=== PATIENT | female | born 1950 | race Caucasian/White ===

== ENCOUNTER 2016-12-24 00:11 | Inpatient (IN) | payer OTHER ==
[~2016-12-24] VITALS: Ht 167.6 cm; Wt 59.4 kg
[2016-12-24] VITALS (17 sets, daily range): BP systolic 62–151; BP diastolic 40–79; PULSE 62–119; RESP 13–28; O2SAT 76–100
[~2016-12-24 00:11] MED LIST: ALBU8.5H2 INHALATION; AZIT250T4 PO; CYCL1DRO AFFECT_EYE; EPIN0.3P17 IJ; FURO40TA4 PO; IPRA3AMP IH; LOSA50TA37 PO; POTA10TA12 PO; SYMINH INHALATION
[2016-12-24] MEDS ORDERED: Propofol 10,000 mCg/mL 20 mL Inj ONE (07:33)
[2016-12-24] MEDS ORDERED: Phenylephrine/NS-PF 100 mCg/mL 5 mL Syringe IVPUSH ONE (07:33)
[2016-12-24] MEDS ORDERED: EPHEDrine/NS 5 mg/mL 5 mL Syringe ONE (07:33)
[2016-12-24 08:35] LABS: BASOPHILS % (AUTO) 0.3 % (0-3); EOSINOPHILS % (AUTO) 0.7 % (0-5); MONOCYTES % (AUTO) 12.4 % (4-12); Mean Corpuscular Hemoglobin 28.6 pg (27.0-35.0); Mean Corpuscular Volume 93.9 fL (81-100); NEUTROPHILS % (AUTO) 71.9 % (40-74); Platelet Count 210 bil/L (150-400)
[2016-12-24 08:53] LABS: INR 1.01 ratio
--- NOTE | 2016-12-24 09:00 | NUR ---
SOB/ oxygen desaturation Pt sats 76 on RA, 92 on 4L, pt states that she doesn't use home O2, she is slightly tachypneic but not feelin in distress, pt doesn't tolerate any position other than sitting upright. MD informed, anesthesia consult ordered. pt extremely anxious and requesting something to calm her down. MD informed, orders given for 1 mg of Ativan. after medication was given pt became sleepy but arousable, sats 94 on 4L o2.
[2016-12-24] MEDS ORDERED: Heparin 5,000 Units/500 mL NS Premix IV ONE ×3 (09:27→11:48)
[2016-12-24] MEDS ORDERED: Nitroglycerin 50,000 mcg/250 mL D5W Premix IV ONE (09:27)
[2016-12-24] MEDS ORDERED: Heparin 1,000 Units/500 mL NS Premix IV ONE (09:27)
[2016-12-24] MEDS ORDERED: Heparin 1,000 Unit/mL 10 mL Inj ONE (09:27)
--- NOTE | 2016-12-24 10:08 | PCM.HPANE ---
Patient Data Date of Service: Dec 24, 2016 Surgeon Admitting Provider: Attending Provider:Jarod Wilson MD Primary Care Physician:Rocky Li DO Other Provider: Reason for Visit Abnormal Stress Test Ht/WT & BMI Height (Feet): 5 Height (Inches): 6.00 Weight (Kilograms): 67.000 Body Mass Index 23.74 Allergies Coded Allergies: lisinopril (Unverified Allergy, Unknown, 12/24/16) dexamethasone (Unverified Adverse Reaction, Unknown, 12/24/16) Past Anesthesia History Anesthesia History: Denies:: Anesthesia Reactions Diabetes History Hx Diabetes?: No MRSA MRSA: No Medications Home Meds Incl Beta Jeffery: No Reported Medications Budesonide/Formoterol 160-4.5 mcg Inh (Symbicort 160-4.5 mcg Inh)120 Puff Inhaler2 Puff INHALATION BID #1 INHALER Ref 0 12/23/16 Cyclosporine (Restasis)1 Each Droperette1 Each AFFECT_EYE BID 12/23/16 Albuterol HFA (Proair HFA)8.5 Gm Hfa.aer.ad2 Puffs INHALATION Q4H PRN For Shortness of Breath #1 INHALER 12/23/16 Potassium Chloride ER 10 Meq Adfpph08 Meq PO DAILY Ref 0 TAKE WITH FOOD 12/23/16 Losartan Potassium 50 Mg Jyftpa15 Mg PO DAILY 12/23/16 Ipratropium/Albuterol Sulfate (Iprat-Albut 0.5-3(2.5) mg/3 mL Inhalant Soln)3 Ml Ampul.neb3 Ml IH Q6 PRN For Shortness of Breath Ref 0 12/23/16 Furosemide 40 Mg [id number] Mg PO DAILY 12/23/16 Epinephrine 0.3 Mg/0.3 Ml Auto.injct0.3 Mg IJ ONCE PRN For Anaphyllaxis 12/23/16 Azithromycin (Zithromax (Z-Howard))250 Mg [id number] Mg PO DIRECTED #6 TABLET Ref 0 Take two tablets by mouth on day 1, then take one tablet daily on days 2 through 5. 12/23/16 History History of ENT Problems?: Yes Other HEENT Pertinent History: post laser surgery Hx of Heart Problems?: Yes Cardiovascular History: Positive for:: Chest Pain (currently having episodes) Hypertension Denies:: Cardiac Surgery Congestive Heart Failure Edema Heart Murmur Irregular Heartbeat Peripheral Vascular Hx of Respiratory Problem?: Yes Respiratory History: Positive for:: Asthma (copd) Dyspnea (constant) Denies:: Chest Surgery Pneumonia Tuberculosis Other History/Comment O2 sats low on admission - patient reports that sats at home in the 80s. Hx Neurologic Problems?: No Hx of GI Problems?: No Hx of Psycho/Social Problems?: Yes Psycho Social History: Positive for:: Anxiety (situational) Denies:: Hx Depression Hx Surgeries?: Yes (, hysterectomy) Hx Any Other Health Problems?: No Other History: Denies:: Cancer Hospitalization Thyroid Disease History Blood Transfusions: Positive for:: Accept Blood Products? Denies:: Blood Transfuse Reaction Blood Transfusions Hx Diabetes: No Hx Alcohol Use: Yes (2 drinks a day)Hx Substance Use: NoHave You Smoked inLast 12 mo: No Stop/Bang Risk Assessment Category Category 1A: Patient has history of documented sleep apnea, and HAS NOT received any narcotic, sedative or anesthesia administration during this stay. Category 1B: Patient has history of documented sleep apnea, and HAS received any narcotic , sedative or anesthesia administration during this stay Category 2: Patient has SUSPECTED Obstructive Sleep Apnea, and HAS received any narcotic , sedative or anesthesia administration during this stay. Category 3: Patient has SUSPECTED Obstructive Sleep Apnea and HAS NOT received narcotic, sedative or anesthesia administration during this stay. Category 4: Outpatient in Procedural Areas with known sleep apnea or who screen positive for High Risk via the STOP/BANG questionnaire. Exam Exam Vital Signs Vital Signs Date Time Temp Pulse Resp B/P Pulse Ox O2 Delivery O2 Flow Rate FiO2 12/24/16 08:51 119 151/79 12/24/16 08:51 36.9 117 28 151/79 94 Room Air General Appearance: Mild Distress, Other (patient already received ativan - very sedated) HEENT/AIRWAY: MP 2 Lungs: Diminished, Wheezes (mild expiratory) Heart: Exam Unremarkable Meds/Labs/Diagnostics Admission Meds Current Medications Lorazepam (Ativan Inj) 2 mg STK-MED ONCE .ROUTE Last administered on 12/24/16t 08:49; Start 12/24/16 at 08:27; Stop 12/24/16 at 08:29; Status DC Labs Test 12/24/16 08:29 White Blood Count 7.2th/mm3 (3.8-10.1) Red Blood Count 5.74mil/mm3 (3.90-5.20) Hemoglobin 16.4g/dL (12.0-15.6) Hematocrit 53.9% (35.0-46.0) Mean Corpuscular Volume 93.9fL (81-100) Mean Corpuscular Hemoglobin 28.6pg (27.0-35.0) Mean Corpuscular Hemoglobin Concent 30.4% (32.0-37.0) Red Cell Distribution Width 14.9% (12.3-15.4) Platelet Count 210bil/L (150-400) Neutrophils (%) (Auto) 71.9% (40-74) Lymphocytes (%) (Auto) 14.6% (14-46) Monocytes (%) (Auto) 12.4% (4-12) Eosinophils (%) (Auto) 0.7% (0-5) Basophils (%) (Auto) 0.3% (0-3) Prothrombin Time 10.8sec (8.1-12.5) Prothromb Time International Ratio 1.01ratio Sodium Level 143mEq/L (134-144) Potassium Level 4.2mEq/L (3.5-5.2) Chloride Level 97mEq/L (97-108) Carbon Dioxide Level 37mmol/L (18-29) Blood Urea Nitrogen 14mg/dL (8-27) Creatinine 0.60mg/dL (0.57-1.00) Estimat Glomerular Filtration Rate 144mL/min (>59) Glucose Level 129mg/dL (60-99) Calcium Level 10.0mg/dL (8.5-10.1) Plan Impression Patient chart reviewed, patient interviewed and anesthestic plan with risks, benefits, and alternatives discussed, and informed consent obtained. ASA Physical Status: ASA3 Severe Disease (asthma/copd) Anesthetic Plan: MAC Bene/Risks/Altern/Consents: Yes (discussed with family as patient very sedated) HP Complete Prior to Induction: Yes Other sats 95% on 4L O2, getting CXR to r/o acute process. discussed with family and Dr. Wilson that discharge today may be difficult if room air sats still low. Bertin Shi MD Dec 24, 2016 10:06
--- NOTE | 2016-12-24 10:13 | DRSVH ---
PROCEDURE: X-RAY CHEST ONE VIEW, PORTABLE ([id number]) INDICATIONS: SHORTNESS OF BREATH TECHNIQUE: One view of the chest was acquired. COMPARISON: [facility], CR, XR CHEST 2VW, 11/26/2016, 11:43. FINDINGS: Surgical changes and devices: None. Lungs and pleura: No pleural effusions or pneumothorax. Lungs are clear. Mediastinum: Mediastinal contours appear normal. Heart size is normal. Bones and chest wall: No suspicious bony lesions. Overlying soft tissues appear unremarkable. IMPRESSION: No acute disease Dictated by: Alli Mercado M.D. on 12/24/2016 at 10:11 Approved by: Alli Mercado M.D. on 12/24/2016 at 10:12
[2016-12-24] MEDS ORDERED: Lactated Ringer's 1,000 ML IV ONE (10:22)
[2016-12-24] MEDS ORDERED: Labetalol 5 mg/mL 20 mL Inj ONE (10:52)
[2016-12-24] MEDS ORDERED: Ondansetron 2 mg/mL 2 mL Inj IVPUSH PRN ×3 (12:55→13:10)
[2016-12-24] MEDS ORDERED: Alum-Mag Hydrox-Simeth 30 mL Suspension PO PRN (12:55)
[2016-12-24] MEDS ORDERED: 0.9% Sodium Chloride 250 ML IV PRN (12:58)
[2016-12-24] MEDS ORDERED: HYDROcodone-APAP 5-325 mg Tablet PO PRN (13:00)
[2016-12-24] MEDS ORDERED: Atropine 1 mg/10 mL (Code) Syringe IVPUSH PRN (13:00)
[2016-12-24] MEDS ORDERED: Albuterol-Ipratropium 3 mL Inhalation Solution ONE (13:05)
[2016-12-24] MEDS ORDERED: Lactated Ringer's 1,000 ML IV SCH (13:08)
[2016-12-24] MEDS ORDERED: Lactated Ringer's 500 ML IV PRN (13:08)
[2016-12-24] MEDS ORDERED: fentaNYL-PF 50 mCg/mL 2 mL Inj IVPUSH PRN (13:10)
[2016-12-24] MEDS ORDERED: Dexamethasone 4 mg/mL Inj IVPUSH PRN (13:10)
[2016-12-24] MEDS ORDERED: EPHEDrine Sulfate 50 mg/mL Inj IVPUSH PRN (13:10)
[2016-12-24] MEDS ORDERED: HYDROmorphone 1 mg/mL Inj IVPUSH PRN (13:10)
[2016-12-24] MEDS ORDERED: Phenylephrine 10,000 mCg/mL Inj IVPUSH PRN (13:10)
[2016-12-24] MEDS ORDERED: Albuterol-Ipratropium 3 mL Inhalation Solution NEB PRN ×2 (13:10→17:25)
[2016-12-24] MEDS ORDERED: MetoCLOpramide 5 mg/mL 2 mL Inj IVPUSH PRN (13:10)
--- NOTE | 2016-12-24 13:22 | PCM.ANEP1 ---
Post Anesthesia Phase 1 PACU Phase 1 Assessment Date of Service: Dec 24, 2016 Vital Signs Vital Signs Date Time Temp Pulse Resp B/P Pulse Ox O2 Delivery O2 Flow Rate FiO2 12/24/16 08:51 119 151/79 12/24/16 08:51 36.9 117 28 151/79 94 Nasal Cannula 4.00 12/24/16 08:00 76 Room Air Anesthetic Administered: GA Level of Alertness: Drowsy, not talking Pain: No Nausea or Vomiting: No Oxygen Delivery: Mechanical Ventilator Lungs: Diminished, Wheezes (mild expiratory) Summary remains intubated, sedated on vent in JIGAR (awaiting bed in ICU) Bertin Shi MD Dec 24, 2016 13:22
[2016-12-24 13:43] LABS: BASOPHILS % (AUTO) 0.2 % (0-3); EOSINOPHILS % (AUTO) 0.6 % (0-5); MONOCYTES % (AUTO) 10.5 % (4-12); Mean Corpuscular Hemoglobin 28.6 pg (27.0-35.0); Mean Corpuscular Volume 97.2 fL (81-100); NEUTROPHILS % (AUTO) 78.5 % (40-74); Platelet Count 194 bil/L (150-400)
[2016-12-24] MEDS: Propofol Inj 1,000,000 MCG in IV Premix 1 EACH IV SCH ×3 (13:56→22:13)
[2016-12-24] MEDS ORDERED: DOPamine 800 mg/250 mL D5W Premix IV ONE (14:02)
--- NOTE | 2016-12-24 14:13 | DRSVH ---
PROCEDURE: X-RAY CHEST ONE VIEW, PORTABLE ([id number]) INDICATIONS: TUBE PLACEMENT TECHNIQUE: One view of the chest was acquired. COMPARISON: [facility], CR, XR CHEST 1VW (PORTABLE), 12/24/2016, 9:44. FINDINGS: Surgical changes and devices: Endotracheal tube is present approximately 3.2 cm superior to the bev na. Lungs and pleura: No pleural effusions or pneumothorax. Lungs are clear. Mediastinum: Mediastinal contours appear normal. Heart size is normal. Bones and chest wall: No suspicious bony lesions. Overlying soft tissues appear unremarkable. IMPRESSION: Interval endotracheal tube as above. Remaining exam is stable. Dictated by: Maria Ines Smith M.D. on 12/24/2016 at 14:10 Approved by: Maria Ines Smith M.D. on 12/24/2016 at 14:11
--- NOTE | 2016-12-24 15:30 | NUR ---
transfer to rm 2019 pt transferred to CCU, report given to Nataliia Adler RN. RT at bedside with bag valve or transport, pt tolerated transfer well, when vitals taken at bedside pt VSS and within expected parameters on the ventilator. pt family made aware of transfer, they had her personal belongings with them when they left.
--- NOTE | 2016-12-24 16:01 | ABG ---
DateTimeAnalyzed 15:55:00 -_ pH ____7.499 - 7.350 7.450 pCO2 ___39.4__ -mmHg 35.0 45.0 pO2 249 -mmHg 69.0 116 HCO3- ___30.4__ -mmol/L 22.0 26.0 ABE ____7.0__ -mmol/L -2.0 2.0 tHb ___14.9__ -g/dL O2Hb ___97.8__ -% COHb ____1.0__ -% MetHb ____0.9__ -% sO2 ___99.7__ -% FIO2 ___40.0__ -% PEEP ____5.0__ -cmH2O Set_RR ___18.0__ -b/min Vt __460.0__ -L Drawn By as - Date/Time Notified____ 16:00:00 -_ Spontaneous_RR ___18.0__ -b/min Oxygen Device 1 VENTILATOR - Notified By AMS - Notified Whom ROSEMARY COOK, RN - B 747 -mmHg tO2 ___21.0__ -Vol% Thad test N/A -
--- NOTE | 2016-12-24 16:02 | NUR ---
Recieved from labor relations officer Pt intubated, sedated, hypotensive, MD and anesthesiologist at bedside, orders given for fluid bolus, and initiation of propofol gtt. see post heart cath flow sheet for groin management and Vital signs, family updated on plan of care.
--- NOTE | 2016-12-24 16:11 | DRSVH ---
[facility] [address] [place] [address] Echocardiogram Report Name: MARYJANE WEBER Study Date: 12/24/2016 Height: 66 in Hospital Exam Location: [facility] Weight: 147 lb Gender: Other BSA: 1.8 m2 : 1950 Age: 66 yrs BP: 91/65 mmHg Reason For Study: POST PROCEDURE Ordering Physician: Performed By: Vinicio Reeder Interpretation Summary Limited study due to supine position during image acquisition. 1.The estimated ejeciton fraction is 35-40%. Multisegment wall motion abnormalities are seen. Elevated E/e suggest elevated left atrial filling pressures. 2. Mild to moderately reduced systolic function. 3. Mild mitral regurgitation. 4. IVC is not plethoric. 5. No prior study is available for comparison. Procedure: A two-dimensional transthoracic echocardiogram with color flow and Doppler was performed. The study quality was technically adequate. There is no prior echocardiogram noted for this patient. The patient was in normal sinus rhythm during the exam. Left Ventricle: The left ventricle is normal in size. Left ventricular wall thickness is mildly increased. There is no thrombus. The ejection fraction is estimated to be 35-40%. There is anterior wall mild hypokinesis. Threre is moderate hypokinesis of basal to mid inferoseptum and basal to mid inferior wall. The E/E' ratio is moderately increased, suggesting possible increased filling pressures. Right Ventricle: The right ventricle is borderline dilated. Right ventricular systolic function is mild to moderately reduced. Mitral Valve: The mitral valve leaflets appear borderline thickened, but open well. There is mild mitral regurgitation. Aortic Valve: The aortic valve is not well visualized. No aortic regurgitation is present. Tricuspid Valve: The tricuspid valve is not well visualized, but is grossly normal. Pulmonary artery pressures cannot be estimated because of the lack of a measurable TR jet velocity. Pulmonic Valve: The pulmonic valve is not well visualized. Great Vessels: Inspiratory collapse cannot be assessed because of mechanical ventilation, thus CVP cannot be estimated.. Pericardium/ Pleura There is no pericardial effusion. There is no pleural effusion. MMode/2D Measurements & Calculations RVD1 (basal): 4.9 cm Doppler Measurements & Calculations Ao V2 max MV E max jacob MV E/A: 1.4 PA V2 max : 104.1 cm/sec : 68.0 cm/sec Med Peak E' Jacob : 48.3 cm/sec Ao max P.3 mmHgMV A max jacob PA mean PG Ao mean PG : 48.9 cm/sec E/E' med: 20.2 : 0.46 mmHg LVOT Max Jacob : 72.5 cm/sec sev ratio: 0.73 MV dec time Ao V2 mean LV V1 max PG PA V2 mean : 0.27 sec : 74.8 cm/sec : 32.1 cm/sec Ao V2 VTI: 17.0 cm LV V1 VTI: 12.5 cm PA pr(Accel) : 31.6 mmHg Electronically signed by: Dr. Jarod Wilson on Reading Physician:12/24/2016 04:10 PM
--- NOTE | 2016-12-24 16:45 | HP ---
[address] [address] HISTORY AND PHYSICAL PATIENT: MARYJANE WEBER : 1950 MR#: [id number] ADMIT: 12/24/2016 JOB ID: [id number] REASON FOR ADMISSION TO CCU: Respiratory failure. HISTORY OF PRESENTING ILLNESS: The patient is a delightful 66-year-old woman with known history of chronic obstructive pulmonary disease, history of smoking, COPD, and hypertension, who was referred to me for evaluation of abnormal EKG and ongoing symptoms of shortness of breath and intermittent chest heaviness and pain. She was seen in the office and underwent pharmacological stress testing and an echocardiogram. The echocardiogram revealed overall systolic function of 40% to 45% with severe hypokinesis of the inferior wall and mild hypokinesis of the anteroseptal and anterior basal segments. No significant valvular abnormalities were noted. The stress test revealed reversible perfusion defect involving the anteroseptal/septal wall completely reversible on resting images. The post stress ejection fraction was 33%. The inferior wall demonstrated fixed perfusion defect consistent with previous infarction. Given presence of ischemia, the patient was advised coronary angiography. The patient was seen in the special observation unit, consent was obtained, and the patient was taken to the laboratory mechanical technician. Coronary angiography was performed which demonstrated 70% complex lesion of the proximal LAD with the side first diagonal branch. The diagonal branch has high-grade ostial stenosis. The mid and distal LAD demonstrates luminal irregularities. The left circumflex is free of any significant disease. The right coronary artery has two lesions in the mid RCA and distal RCA and the posterior descending artery was not well visualized. There were mature avun-yv-uhago collaterals noted. The LV-gram was performed which demonstrated posterobasal akinesis and the anteroseptal wall demonstrated mild hypokinesis. I referred the patient to Dr. Rl Torres, who graciously agreed to do intervention to the LAD. As he started the intervention, the patient became obtunded and hypotensive. Her pCO2 was 150. She was managed by Dr. Shi, who was managing her airway and her sedation. The angioplasty was aborted. The patient became hypotensive and the patient was intubated in the laboratory mechanical technician. The arterial sheath was removed and a Perclose closure device was placed. The patient was brought to the special observation unit for further management. The patient was placed on the ventilator. Two IV lines were established. Easton catheter was inserted. IV propofol was administered. The patient remained hemodynamically unstable and with low blood pressures. Two fluid boluses were given and an IV dopamine drip was started. From a diagnostic standpoint, the chest x-ray demonstrated mildly hyperinflated lungs with prominent interstitial markings. There is prominent pulmonary artery. The LV size was normal. There was no evidence of pneumothorax. Stat echo was performed which demonstrated akinesis of the inferior wall. The anteroseptal and mid anteroseptal segment was moderately to severely hypokinetic. Routine labs were ordered and the results are pending. I had a long conversation with the family members, who were supportive, and I kept them apprised of her clinical status. In the meanwhile I spoke to Dr. Bertin Delgado for taking over her care as the hospitalist. ALLERGIES: INCLUDE LISINOPRIL AND DEXAMETHASONE. CURRENT MEDICATIONS: Include: 1. Vitamin D3 2000 units daily. 2. Venlafaxine 75 mg daily. 3. Symbicort inhaler twice daily. 4. Restasis eyedrops daily. 5. ProAir inhaler two puffs every 4-6 hours daily. 6. Potassium chloride ER 10 mEq daily. 7. Losartan 50 mg daily. 8. Furosemide 40 mg daily. PAST MEDICAL HISTORY: Her problem list includes COPD, history of smoking, history of occupational exposure. PHYSICAL EXAMINATION: Blood pressure is 117/69, FiO2 of 30%, saturating at 95%. She is sedated, intubated. S1, S2 is distant the chest demonstrates diminished breath sounds in both lower bases. Abdomen is benign. Lower extremities: No pedal edema. The groin site is free of any hematoma. LABORATORY DATA: The current ABGs pending. Echo: EF 35-40%. Alexander-septal wall hypokinesis, Inferior wall hypokinesis. Evidence of elevated filling pressures. Chest X ray shows prominent interstitial marking. Prominent pulmonary artery. ASSESSMENT: 1. Type 2 respiratory failure with hypercapnia. 2. Coronary artery disease with a high-grade stenosis to the proximal LAD and high-grade stenosis to the mid and distal RCA. 3. Ischemic cardiomyopathy with ejection fraction of 40%. Multisegment wall motion abnormalities noted. 4. COPD. The patient has a longstanding history of smoking an is on bronchodilators. PLAN: 1. Admit to the CCU for hemodynamic stability. 2. Current IV drips: Propofol, dopamine, IV fluids at 100 cc an hour. 3. Heparin subcu for VTE prophylaxis. 4. IJ-line to be placed by anesthesia. 5. Strict input and output charting. 6. Hemodynamic measurements per CCU protocol. 7. I will be following closely monitoring her. Total ICU critical time is 2 hours and 30 minutes. MTDD
--- NOTE | 2016-12-24 16:58 | DRSVH ---
PROCEDURE: X-RAY CHEST ONE VIEW, PORTABLE ([id number]) INDICATIONS: CENTRAL LINE PLACEMENT ET TUBE NG TUBE TECHNIQUE: One view of the chest was acquired. COMPARISON: [facility], CR, XR CHEST 1VW (PORTABLE), 12/24/2016, 13:32. FINDINGS: Surgical changes and devices: Enteric tube is seen with the tip not included on the study however bey ond the gastroesophageal junction. Endotracheal tube is seen with the tip approximately 2 x 3 cm abov e the aftab. There is a right internal jugular central venous catheter with the tip projecting in th e mid SVC although not well-seen due to overlying EKG lead Lungs and pleura: No pleural effusions or pneumothorax. No acute consolidation. Mediastinum: Mediastinal contours appear normal. Heart size is normal. Bones and chest wall: No suspicious bony lesions. Overlying soft tissues appear unremarkable. IMPRESSION: No acute disease. Support equipment as above. No pneumothorax. Dictated by: Alli Mercado M.D. on 12/24/2016 at 16:55 Approved by: Alli Mercado M.D. on 12/24/2016 at 16:57
--- NOTE | 2016-12-24 17:28 | PCM.HPMED ---
Subjective Date of Service Dec 24, 2016 Primary Provider: Admitting Physician: Bertin Delgado MD Primary Care Physician: Rocky Li DO Attending Physician: Bertin Delgado MD Chief Complaint: Acute Respiratory failure. 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 Patient was referred to Dr. Jarod Wilson for cardiology evaluation. Patient underwent a outpatient stress test which was suggestive of ischemic cardiac disease. Patient was therefore brought in today for an elective cardiac catheterization. Patient was extremely anxious and was given some Ativan. She became quite somnolent and soon thereafter became easily arousable. Patient underwent coronary artery catheterization was found to have 2 lesions in tandem in her right coronary artery and an approximately 90 % proximal LAD lesion. Dr. Torres was contacted to assist with intervention for these lesions. Anesthesia was present to help with the procedure due to patient's anxiety level and need for some sedation. She apparently was given some propofol. By the time Dr. Torres had scrubbed in and was available to help with the procedure the patient apparently was once again less responsive. A blood gas revealed a CO2 that was over 150. Patient was promptly intubated and placed on the ventilator. The percutaneous intervention for the LAD lesion in the tandem RCA lesions was aborted. Patient was transferred over to the intensive care unit for further evaluation and treatment. Review of Systems: Review of systems is unavailable from the patient is a patient is intubated. Allergies Coded Allergies: lisinopril (Unverified Allergy, Unknown, 12/24/16) dexamethasone (Unverified Adverse Reaction, Unknown, 12/24/16) Home Medications Budesonide/Formoterol 160-4.5 mcg Inh (Symbicort 160-4.5 mcg Inh)120 Puff Inhaler2 Puff INHALATION BID #1 INHALER Ref 0 12/23/16 Cyclosporine (Restasis)1 Each Droperette1 Each AFFECT_EYE BID 12/23/16 Albuterol HFA (Proair HFA)8.5 Gm Hfa.aer.ad2 Puffs INHALATION Q4H PRN For Shortness of Breath #1 INHALER 12/23/16 Potassium Chloride ER 10 Meq Tdwode27 Meq PO DAILY Ref 0 TAKE WITH FOOD 2/16/17 Losartan Potassium 50 Mg Eoixlh02 Mg PO DAILY 12/23/16 Ipratropium/Albuterol Sulfate (Iprat-Albut 0.5-3(2.5) mg/3 mL Inhalant Soln)3 Ml Ampul.neb3 Ml IH Q6 PRN For Shortness of Breath Ref 0 12/23/16 Furosemide 40 Mg Kchztq56 Mg PO DAILY 12/23/16 Epinephrine 0.3 Mg/0.3 Ml Auto.injct0.3 Mg IJ ONCE PRN For Anaphyllaxis 12/23/16 Azithromycin (Zithromax (Z-Howard))250 Mg Sbcmrd676 Mg PO DIRECTED #6 TABLET Ref 0 Take two tablets by mouth on day 1, then take one tablet daily on days 2 through 5. 12/23/16 PMH Patient has been having intermittent chest pain History of hypertension. History of anxiety History depression Surgical History Prior Prior hysterectomy Family History Family history is unavailable from the patient has no family present. Social History Occupation: Hairdresser Hx Alcohol Use: Yes (2 drinks a day) Hx Substance Use: No Hx Tobacco Use: Yes Smoking Status: Former Smoker (patient quit smoking 3 years ago.) Exam Vital Signs Vital Sign - Last Date Time Temp Pulse Resp B/P Pulse Ox O2 Delivery O2 Flow Rate FiO2 12/24/16 15:38 74 130/73 100 40 12/24/16 15:00 17 ventilator 12/24/16 08:51 36.9 4.00 Exam General: Patient is sedated on the ventilator. She is moving all 4 extremities and has soft restraints on her wrist and ankles. HEENT: Head is atraumatic and normocephalic. Eyes: Pupils are pinpoint, however equally round and reactive to light and accommodation. Extraocular muscles are unable to be tested. Sclera are white, anicteric. Subconjunctival mucosa is pink. Ears and nose are unremarkable. Oropharynx: Patient is intubated with an endotracheal tube in place. There is no mucosal lesions evident, there is no thrush evident, I am unable to see the posterior pharynx. Neck: Is supple, there are no nodes, or masses or tenderness. Chest: Is significant for coarse breath sounds on the ventilator. There are no significant rales, rhonchi, wheezes or rubs. Heart: Rate, rhythm is regular. Heart tones are distant There is obvious murmur , rub or gallop. Abdomen: Good bowel sounds are present. Abdomen is obese, soft, nontender, no organomegaly or masses were appreciated. Extremities: Are symmetrical and well perfused. There is no edema, there is no cellulitis, no rash. Neurologic: Patient is moving all 4 extremities. Patient has soft restraints on her wrists and ankles for her own protection. Full neurological exam could not be performed as patient is sedated on the ventilator.. Psychiatric: Patient is sedated on ventilator. Genital: Deferred Rectal: Deferred Lab and Diagnostics Result Diagram: 12/24/16 1335 12/24/16 1335 X-Rays, CTs and MRIs PROCEDURE: X-RAY CHEST ONE VIEW, PORTABLE ([id number]) INDICATIONS: TUBE PLACEMENT TECHNIQUE: One view of the chest was acquired. COMPARISON: [facility], CR, XR CHEST 1VW (PORTABLE), 12/24/2016, 9: 44. FINDINGS: Surgical changes and devices: Endotracheal tube is present approximately 3.2 cm superior to the aftab. Lungs and pleura: No pleural effusions or pneumothorax. Lungs are clear. Mediastinum: Mediastinal contours appear normal. Heart size is normal. Bones and chest wall: No suspicious bony lesions. Overlying soft tissues appear unremarkable. IMPRESSION: Interval endotracheal tube as above. Remaining exam is stable. Dictated by: Maria Ines Smith M.D. on 12/24/2016 at 14:10 Approved by: Maria Ines Smith M.D. on 12/24/2016 at 14:11 Cardiac Echo Impressions Echocardiogram Report Name: MARYJANE WEBER Study Date: 12/24/2016 Height: 66 in Hospital Exam Location: [facility] Weight: 147 lb Gender: Other BSA: 1.8 m2 : 1950 Age: 66 yrs BP: 91/65 mmHg Reason For Study: POST PROCEDURE Ordering Physician: Performed By: Vinicio Reeder Interpretation Summary Limited study due to supine position during image acquisition. 1.The estimated ejeciton fraction is 35-40%. Multisegment wall motion abnormalities are seen. Elevated E/e suggest elevated left atrial filling pressures. 2. Mild to moderately reduced systolic function. 3. Mild mitral regurgitation. 4. IVC is not plethoric. 5. No prior study is available for comparison. 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 Patient was referred to Dr. Jarod Wilson for cardiology evaluation. Patient underwent a outpatient stress test which was suggestive of ischemic cardiac disease. Patient was therefore brought in today for an elective cardiac catheterization. Patient was extremely anxious and was given some Ativan. She became quite somnolent and soon thereafter became easily arousable. Patient underwent coronary artery catheterization was found to have 2 lesions in tandem in her right coronary artery and an approximately 90 % proximal LAD lesion. Dr. Torres was contacted to assist with intervention for these lesions. Anesthesia was present to help with the procedure due to patient's anxiety level and need for some sedation. She apparently was given some propofol. By the time Dr. Torres had scrubbed in and was available to help with the procedure the patient apparently was once again less responsive. A blood gas revealed a CO2 that was over 150. Patient was promptly intubated and placed on the ventilator. The percutaneous intervention for the LAD lesion in the tandem RCA lesions was aborted. Patient was transferred over to the intensive care unit for further evaluation and treatment. Acute on chronic respiratory failure -Profound hypercarbia -Patient became obtunded -Patient intubated and on the ventilator -Patient apparently has a history of being hypoxic at home and did not seek medical attention. -Patient has a history of chemical exposure as a hairdresser for years -Patient has a history of tobacco use disorder. She quit 3 years ago. Patient likely suffers from undiagnosed COPD. -Patient has a history of asthma -Patient has an anxiety disorder -We will consult Dr. Grey for pulmonary consultation and for ventilator management. Ischemic cardiomyopathy with acute on chronic systolic congestive heart failure. -She has a proximal LAD lesion of 90% and 2 in tandem RCA lesions. These were seen on cardiac catheterization today. -Patient will need intervention for these lesions as soon as she is stable enough for taking her back to the cardiac catheterization laboratory. -Patient a positive stress test as an outpatient -Patient's ejection fraction is 35-40% and echocardiogram performed today. -We will continue Lasix and IV form as he normally takes Lasix 40 mg by mouth daily at home -Other cardiac meds as per Dr. Wilson History of anxiety and depression -Patient became hypercarbic with Ativan therapy today. History of hypertension -Patient takes losartan 50 mg daily and furosemide 40 mg daily. Disposition: Patient will likely be here for 72 hours or more for the evaluation and treatment and management of above problems. Pain Evaluation: Adequate Pain Control GI Prophylaxis: H2 vinay VTE Prophylaxis: Other (patient has received numerous doses of heparin IV) Resuscitation Status: CPR: Attempt Resuscitation Time spent Time taken in the care of this chronically ill patient was over 60 minutes, over half of which was involved in counseling and [place] of care. Bertin Delgado MD Dec 24, 2016 17:28
[2016-12-24] MEDS: fentaNYL 2,500 mCg/250 mL 2,500 MCG in IV Premix 1 EACH IV SCH (17:44)
[2016-12-24] MEDS: Albuterol-Ipratropium 3 mL Inhalation Solution NEB SCH ×2 (18:03→21:21)
--- NOTE | 2016-12-24 18:36 | PCM.CHPMED ---
Subjective Date of Service: Dec 24, 2016 Primary Physician: Admitting Physician: Bertin Delgado MD Primary Care Physician: Rocky Li DO Attending Physician: Bertin Delgado MD Admit Status: From the Emergency Department Chief Complaint: Chief Complaint: Hypercarbic respiratory failure History of Present Illness: A 66-year-old woman with reported history of COPD, history of smoking, and hypertension was evaluated by Dr. Wilson due to an abnormal EKG with failed pharmacologic stress test. Patient present to the [facility] today for cardiac catheterization evaluation. The catheterization there are noted high-grade stenoses in the LAD and RCA. Please see Dr. Wilson's note for specifics. After discovery of the lesions Dr. Torres was consulted and after discussion with Dr. Torres agreed to do intervention on the LAD. After initiation of the intervention with anticipated stent placement, the patient became obtunded and hypotensive with a PCO2 of 150. The angioplasty was aborted at that time and the patient intubated. Patient was also placed on dopamine, 2 IV lines were established, [place], and IV propofol was started. Patient was admitted to the ICU a pulmonary was consulted for vent management. ABG obtained in the [place] [employer] Technician is unavailable at the time of this dictation. First first ABG on the floor revealed a pH of 7.499, PCO2 of 39.4, PO2 of 249, bicarbonate of 30.4, with a saturation of 99.7% White count was 10.1, hemoglobin 14.2, hematocrit 40.3, platelets 194 Patient was mildly hypernatriuretic and hyperkalemic at 147 and 5.3, respectively. Bicarbonate was initially 37 with repeat being 33. Chest x-ray was read by radiology and they identified no acute disease Review of Systems: Complete review of systems taken from previous notes, as patient is intubated. PMH Past Medical History COPD/asthma Hypertension Allergies: Coded Allergies: lisinopril (Verified Allergy, Unknown, cough, 01/06/17) dexamethasone (Verified Adverse Reaction, Unknown, 01/06/17) Social History Occupation: Hairdresser Hx Alcohol Use: Yes (2 drinks a day)Hx Substance Use: NoHx Tobacco Use: Yes Smoking Status: Former Smoker (patient quit smoking 3 years ago.) Exam Vital Signs Vital Sign - Last Date Time Temp Pulse Resp B/P Pulse Ox O2 Delivery O2 Flow Rate FiO2 12/24/16 16:22 100 25 12/24/16 15:38 74 130/73 12/24/16 15:00 17 ventilator 12/24/16 08:51 36.9 4.00 Additional Information: General: Patient sedated and intubated HEENT: Right IJ in place. Neck supple Cardio: Regular rate and rhythm; distant heart sounds but do not include murmur Respiratory: Patient is currently on the ventilator with resolved hypercapnia. Patient is auto PEEP and we will change vent settings Abdomen: Positive bowel sounds, not distended Extremities: Mild pitting edema of the lower extremities on the left; lines in place peripherally Psych: Unable to obtain due to sedation Neuro: Unable to obtain due to sedation Skin: No rashes Lab and Diagnostics Result Diagram: 12/24/16 1335 12/24/16 1335 Assessment & Plan Assessment 1. Acute on chronic hypercarbic respiratory failure 2. Ischemic cardiomyopathy with ejection fraction 35-40% 3. CAD 4. COPD Neurological: Patient is currently sedated on propofol and fentanyl. Will wean down the propofol and attempt to keep the patient on fentanyl. The patient a sedation vacation tomorrow Cardiovascular: Patient was at the hospital due to significant CAD. Patient was to be stented but this was aborted. Patient is currently stable with a heart rate in the 70s. Dr. Wilson did admit the patient and will follow up with him tomorrow. Patient will be sedated overnight and will reassess in the a.m. EKGs when necessary for abnormal rhythms overnight. Respiratory: Patient has COPD that is unknown to family. She was previous smoker who quit 3 years ago and is unable to lay down to sleep at home. She is supposed to wear oxygen but family states she does not. brought her pulse oximeter at home and the few times she is wearing it she is in the 70s to 80s. Family says that she has not passed out and does not seem dizzy but is a little strange and confused at times. Currently vent settings are being adjusted an ABG is ordered for follow-up. Chest x-ray in the morning ABG in the morning. Last ABG showed resolution of the hypercarbia. Patient also has DuoNeb's every 4 hours and every 2 when necessary if needed. Patient was also started on methyl Pred 60 mg twice a day IV. Anticipate patient may be discharged next day or 2 pending interventions. GI: Will defer a bowel regimen to primary team Renal: Currently BMP looks stable although there is some hyperkalemia and hypernatremia. Patient will receive fluids overnight and repeat labs in the morning Nutrition: Patient is nothing by mouth at this time with no plans to start nutrition parenterally. Disposition: Patient stable condition tonight. Will reevaluate in the a.m. and discuss with cardiology about their plans for further intervention. Time spent: 1.5 hours Problems: Pain Evaluation: Adequate Pain Control GI Prophylaxis: H2 vinay VTE Prophylaxis: Other (patient has received numerous doses of heparin IV) Resuscitation Status: CPR: Attempt Resuscitation Attending Statement The patient was seen and examined together with Dr. Evangelista on 12/24/2016 and I agree with the history, exam and plan as outlined in the note above. Garyr Evangelista DO Dec 24, 2016 18:36 Sarath Grey MD Jan 19, 2017 10:39
--- NOTE | 2016-12-24 19:19 | NUR ---
Pt arrived in CCU at approx 1515 Pt came in today for outpatient heart cath. She required intubation in the calibration laboratory technician and arrived in CCU at approx 1515hrs. Pt has been sedated on propofol and has fentanyl gtt for pain. This is working well for her, she appears comfortable,and BP is stable. Art line and CVL was placed by anaesthesia after pt arrived in CCU. I placed an OG and CXR was done to check placement of ETT, CVL and OG. Pt in in SR in the 60's to 70's. Family have been with pt most of the day and they have been up dated by Dr. Grey and Dr. Tonja cervantes. plan of care.
[2016-12-24] MEDS: MethylprednisoLONE Sodium Succinate 40 mg/mL Inj IVPUSH SCH (20:42)
[2016-12-24] MEDS: 0.9% Sodium Chloride 1,000 ML IV PRN (22:13)
[2016-12-24] MEDS ORDERED: Furosemide 10 mg/mL 2 mL Inj IVPUSH ONE (22:30)
[2016-12-25] VITALS (12 sets, daily range): BP systolic 101–146; BP diastolic 44–74; PULSE 74–92; RESP 13–15; O2SAT 92–100
[2016-12-25] MEDS: Albuterol-Ipratropium 3 mL Inhalation Solution NEB SCH ×6 (00:36→20:25)
[2016-12-25] MEDS: Heparin 5,000 Unit/mL Inj SUBQ SCH ×3 (00:44→17:00)
[2016-12-25] MEDS: Propofol Inj 1,000,000 MCG in IV Premix 1 EACH IV SCH ×4 (03:30→22:58)
--- NOTE | 2016-12-25 04:47 | ABG ---
DateTimeAnalyzed 04:41:00 -_ pH ____7.458 - 7.350 7.450 pCO2 ___41.2__ -mmHg 35.0 45.0 pO2 ___95.5__ -mmHg 69.0 116 HCO3- ___28.7__ -mmol/L 22.0 26.0 ABE ____4.9__ -mmol/L -2.0 2.0 tHb ___14.1__ -g/dL O2Hb ___96.0__ -% COHb ____1.0__ -% MetHb ____0.9__ -% sO2 ___97.9__ -% FIO2 ___30.0__ -% PRVC 473 - PEEP ____5.0__ -cmH2O Set_RR ___13.0__ -b/min Vt __420.0__ -L Drawn By RB - Date/Time Notified____ 04:46:00 -_ Spontaneous_RR ___13.0__ -b/min Notified By RB - Notified Whom Jasmin K, RN - B 744 -mmHg tO2 ___19.1__ -Vol% Thad test N/A -
--- NOTE | 2016-12-25 05:14 | PROCED ---
[address] [address] PROCEDURE NOTE PATIENT: MARYJANE WEBER : 1950 MR#: [id number] ADMIT: 12/24/2016 JOB ID: [id number] DATE OF SERVICE: PREOPERATIVE DIAGNOSIS(ES): POSTOPERATIVE DIAGNOSIS(ES): SURGEON: Bertin Shi MD. PROCEDURE: Arterial line and central line placement. INDICATIONS: The patient underwent a left heart catheterization, which ultimately required the patient to be intubated. She remains sedated and intubated in the ICU. In my discussions with Dr. Wilson, the sound engineering technician, it was decided that a central line and arterial line would be useful for treatment and monitoring. DESCRIPTION OF PROCEDURE: The right radial arterial line was prepped and sterilely draped. Sterile technique was used. Initial attempt with palpation was unsuccessful. I used ultrasound to identify the artery, and a 20-gauge radial arterial line was placed and secured sterilely. Next, the patient's right IJ area was prepped and draped. Full barrier technique was utilized. The anatomy was identified with ultrasound. Then, 1% lidocaine was infiltrated, and a needle was placed with good flow of venous-appearing blood. A wire was placed without difficulties. Using Seldinger technique, a three-lumen central line was placed approximately 17 cm at the skin. I was able to aspirate and flush all three ports. Then, IV therapy assisted in securing a line posteriorly. The patient tolerated the procedure well. Chest x-ray is pending for the line placement.
[2016-12-25] MEDS: 0.9% Sodium Chloride 1,000 ML IV PRN (06:45)
--- NOTE | 2016-12-25 07:14 | NUR ---
Sedation/BP Pt sedated on Propofol and Fentanyl. Rested throughout most of night. Around 0500 BP started becoming hypotensive. 250ml fluid bolus and decrease in propofol. BP responded. Pt did wake up at one point. BP 170s/80s and appeared very anxious about tube. Was reassured by nursing staff and about status. She was able to follow commands and anxiety decreased slightly. Pt fell back asleep. Awaiting day team orders and plan. Camilo is concerned that pt anxiety is going to interfere with heart cath if they try the same approach. Encouraged Camilo to discuss with oncoming team and cardiology. He agrees. Care ongoing
[2016-12-25] MEDS: MethylprednisoLONE Sodium Succinate 40 mg/mL Inj IVPUSH SCH ×2 (08:30→20:34)
[2016-12-25] MEDS: Furosemide 10 mg/mL 2 mL Inj IVPUSH SCH (09:09)
--- NOTE | 2016-12-25 10:38 | PROG NOTE ---
[address] [address] PROGRESS NOTE PATIENT: MARYJANE WEBER : 1950 MR#: [id number] ADMIT: 12/24/2016 JOB ID: [id number] DATE: 12/25/2016 PROBLEM LIST: 1. Coronary artery disease. 2. Status high-grade stenosis in proximal left anterior descending and high-grade stenosis in the mid and distal right coronary artery. 3. Respiratory failure. 4. Status post intubation on ventilator with FiO2 of 30%. 5. History of smoking. 6. History of hypertension. 7. 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 8. Ischemic cardiomyopathy with ejection fraction of 40%, multi-segment wall motion abnormalities. INTERVAL HISTORY: The patient had a restful night and she is a currently on a ventilator, being managed by Dr. Sarath Grey, on FiO2 of 30%, with pH of 7.4, pCO2 of 41, PaO2 of 95.5 and saturations of 98%. Patient is off dopamine. Currently on propofol for sedation. PHYSICAL EXAMINATION: Vital signs: Blood pressure of 110/53, respirations of 15, pulse rate of 90 beats per minute, sinus rhythm. Input 1600 and output of 1100. Weight of 67 kg. LABORATORIES: White count of 10.1, hemoglobin of 14.2, hematocrit of 48.3, and platelets of 194. Serial troponins are negative. Her proBNP is 2801 (elevated). IMAGING: Chest x-ray demonstrates no interval change. Chest x-rays were not obtained for this morning. CLINICAL ISSUES: 1. Family conference. I had a [id number] conversation with the , as well as her niece. We discussed the plan with her. Considering all the facts, we will keep her intubated until Tuesday morning for intervention to the LAD and right coronary artery. Dr. Rl Torres was notified about the decision, as well as her current clinical status. 2. Respiratory failure is going to be managed by Dr. Sarath Grey and Dr. Evangelista, a resident attending to this patient. 3. Coronary artery disease. The patient was given prasugrel 60 mg loading dose in the catheterization laboratory yesterday. I would like to continue prasugrel 10 mg and aspirin 81 mg crushed to be administered via the OG tube. 4. Infection issues. Sputum cultures are negative so far, consistent with normal mixed kalyan. PLAN: 1. Prasugrel 10 mg crushed to be given by OG tube. 2. Aspirin 81 mg crushed to be administered via the OG tube. 3. Continue with other medications. 4. Continue with sedation with propofol. 5. Ventilator management by Dr. Sarath Grey and his team. CRITICAL TIME SPENT: 45 minutes.
--- NOTE | 2016-12-25 11:09 | CS94 ---
[address] [id number] DIAGNOSTIC CARDIAC CATHETERIZATION PATIENT: MARYJANE WEBER : 1950 MR#: [id number] ADMIT: 12/24/2016 JOB ID: [id number] SERVICE DATE: 12/24/2016 INDICATION: Abnormal stress test. CLINICAL HISTORY: The patient is a 66-year-old woman with known history of chronic shortness of breath, recently noted symptoms of intermittent chest pains. She had an abnormal EKG, and was referred by Dr. Rocky Li for further evaluation. She had a stress test done which demonstrated moderate to large-sized reversible perfusion defect involving anterior, septal wall completely reversible on resting images. Additionally, she had a fixed perfusion defect in the basal inferior wall as well. The post stress ejection fraction was 33%. Given her findings, the patient was advised coronary angiography, and she came for the procedure. CONSENT: The patient was explained the risks, benefits, and alternatives of the procedure. Informed signed consent was obtained and placed in the chart. DESCRIPTION OF PROCEDURE: The patient was brought to the catheterization laboratory. Given her unstable oxygen status, Anesthesia was called in to manage her airway and oxygen saturation issues. Please refer to the anesthesia procedure note for that part of the procedure. The patient was placed on the catheterization table. Both groins were prepped and draped in the usual sterile manner. Lidocaine 1% was infiltrated in the right groin area. Using a standard modified Seldinger technique, a 6-Frisian arterial sheath was placed in the artery in a standard manner. FL4 catheter was used to engage the left main coronary artery, and multiple views of the left coronary system were obtained in multiple projections. Given the very short left main, the catheter was subselective in some views, though good coronary angiography images were obtained of the left coronary system. In a similar manner, FR4 catheter was used to engage the right coronary artery. Multiple views of the right coronary artery were obtained in multiple projections. A pigtail catheter was advanced over the guidewire and placed in the left ventricle. Left ventricular cineangiography was performed. Left ventricular hemodynamics were obtained. FINDINGS: LEFT VENTRICULAR HEMODYNAMICS: CORONARY ANGIOGRAPHY: The left main coronary artery is short and which bifurcates into left anterior descending artery and left circumflex coronary artery. The left anterior descending artery has a complex proximal right 70% lesion with a slight first diagonal branch arising from the area of stenosis. The severity of the stenosis was assessed at 70%. There is an ostial diagonal disease that appears to be high grade. Septal urgent care nurse practitioner branches are noted arising from the mid and distal left anterior descending artery. There are mature collaterals filling the right side arising from the distal left anterior descending artery and septal branches as well. The left circumflex coronary artery has mild luminal irregularities. The first OM branch is a moderate to large caliber vessel, which bifurcates into superior and inferior limbs. The left circumflex traverses into the posterior AV groove. The right coronary artery has a 60% to 70% stenosis in the mid RCA. In the distal RCA just before the bifurcation there is a 70% to 80% stenosis noted with early bridging collaterals. There is reduced filling of the posterolateral and PDA branches. LEFT VENTRICULAR CINEANGIOGRAPHY: The left ventricular systolic function is assessed at 40% to 45%. There is posterobasal hypokinesis, and there is a mild anterolateral hypokinesis as well. There is 1 to 2+ mitral regurgitation noted Vazquez criteria. COMPLICATIONS: None. FLUOROSCOPY TIME: TOTAL CONTRAST USED: 80 cc. IMPRESSION: 1. Two-vessel coronary artery disease. 2. Proximal left anterior descending 70% to 80% stenosis, complex lesion with a high-grade ostial diagonal branch arising from the area of stenosis. 3. Two tandem lesions noted in the mid and distal right coronary artery. 4. Mature kicc-ve-noryl collaterals. 5. Post stress ejection fraction of 40% to 45% with 1 to 2+ mitral regurgitation.
--- NOTE | 2016-12-25 12:11 | NUR ---
NUTRITION ASSESSMENT: ASSESS:66 YO female referred to Dr. Wilson for cardiology evaluation, following stress test indicative of ischemic cardiac disease. She was admitted for elective cardiac catheterization. Patient was extremely anxious and was given some Ativan. She became quite somnolent and soon thereafter became easily arousable. Patient underwent coronary artery catheterization was found to have 2 lesions in tandem in her right coronary artery and an approximately 90% proximal LAD lesion. Dr. Torres was contacted to assist with intervention for these lesions. Anesthesia was present to help with the procedure due to patient's anxiety level and need for some sedation. She apparently was given some propofol. By the time Dr. Torres had scrubbed in and was available to help with the procedure the patient apparently was once again less responsive. A blood gas revealed a CO2 that was over 150. Patient was promptly intubated and placed on the ventilator. The percutaneous intervention for the LAD lesion in the tandem RCA lesions was aborted. Patient was transferred to CCU for further evaluation and treatment. Plan is for tentative heart catheterization Wednesday 12/27. Code status: full. 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 DIET:NPO. LABS: Reviewed. CO2 31, Cr 0.42, Glu 152, Ca 8.4, Alb 4.2. MEDICATIONS: Reviewed. Propofol, fentanyl, lopressor, lasix. NUTRITION FOCUSED PHYSICAL ASSESSMENT: GI symptoms / stool: No BM reported.George: No score documented. Skin Integrity: No issues reported. ANTHROPOMETRICS: Current Wt: 67.0 kgBMI: 23.0 kg/m2. IBW: 59.1 kg (113.4% IBW) ESTIMATED NEEDS (COPD, CCU / VENT): Calories: 1675 - 2010 kcal (25 - 30 kcal / kg BW) Protein: 101 - 121 g protein (1.5 - 1.8 g / kg BW) Fluid: Approx. 1675 mL (25 mL / kg BW) NUTRITION DIAGNOSIS: 1)Inadequate oral intake related to inability to consume sufficient energy, as evidenced by NPO / vent status. INTERVENTION: 1) In the event pt. unable to be extubated over weekend, recommend initiate enteral feeding per following recommendation. Recommend initiate Pulmocare at 10 ml/hr x 24 hr. Once tolerance established, recommend advance 5 ml every 4 hr. to goal rate 55 ml/hr. In addition, recommend adding 1 packet ProSource three times per day. Flush dose 40 ml H2O every 4 hr. Enteral feeding at goal would provide 1815 kcal, 109 g protein (76 g from formula + 33 g from ProSource), sufficient to meet 100% nutrient needs. 2) Adjust goal rate daily based on Propofol rate. MONITOR/EVALUATE: NPO / vent status, labs, GI/nutrition status. Follow up per high nutrition risk guidelines.
--- NOTE | 2016-12-25 12:24 | PCM.PNMED ---
Subjective Date of Service Dec 25, 2016 Subjective - Pt seen and examined this morning. She is intubated and sedates. - No acute events over night. Exam Vital Signs Vital Sign - Last Date Time Temp Pulse Resp B/P Pulse Ox O2 Delivery O2 Flow Rate FiO2 12/25/16 11:34 74 105/50 97 35 12/25/16 08:30 Ventilator 12/25/16 08:30 36.8 15 12/24/16 08:51 4.00 Intake and Output 12/24/16 12/24/16 12/25/16 Cumulative From/Thru 15:00 23:00 07:00 12/24/16 08:51 - 12/25/16 06:20 Intake Total 532 ml 1614 ml 2146 ml Output Total 500 ml 1200 ml 1700 ml Balance 32 ml 414 ml 446 ml Intake Oral 0 ml 0 ml IV Total 532 ml 1614 ml 2146 ml Output Urine Total 450 ml 1100 ml 1550 ml Gastric Drainage Total 50 ml 100 ml 150 ml # Bowel Movements 0 0 Exam General: Patient is sedated on the ventilator. She is moving all 4 extremities and has soft restraints on her wrist and ankles. HEENT: Head is atraumatic and normocephalic. Eyes: Pupils are pinpoint, however equally round and reactive to light and accommodation. Extraocular muscles are unable to be tested. Sclera are white, anicteric. Subconjunctival mucosa is pink. Ears and nose are unremarkable. Oropharynx: Patient is intubated with an endotracheal tube in place. There is no mucosal lesions evident, there is no thrush evident, I am unable to see the posterior pharynx. Neck: Is supple, there are no nodes, or masses or tenderness. Chest: Is significant for coarse breath sounds on the ventilator. There are no significant rales, rhonchi, wheezes or rubs. Heart: Rate, rhythm is regular. Heart tones are distant There is obvious murmur , rub or gallop. Abdomen: Good bowel sounds are present. Abdomen is obese, soft, nontender, no organomegaly or masses were appreciated. Extremities: Are symmetrical and well perfused. There is no edema, there is no cellulitis, no rash. Neurologic: Patient is moving all 4 extremities. Patient has soft restraints on her wrists and ankles for her own protection. Full neurological exam could not be performed as patient is sedated on the ventilator.. Psychiatric: Patient is sedated on ventilator. IVs and Medications Medications Reviewed: Medications were reviewed in detail Lab and Diagnostics Result Diagram: 12/24/16 1335 12/25/16 0500 X-Rays, CTs and MRIs PROCEDURE: X-RAY CHEST ONE VIEW, PORTABLE ([id number]) INDICATIONS: TUBE PLACEMENT TECHNIQUE: One view of the chest was acquired. COMPARISON: [facility], CR, XR CHEST 1VW (PORTABLE), 12/24/2016, 9: 44. FINDINGS: Surgical changes and devices: Endotracheal tube is present approximately 3.2 cm superior to the aftab. Lungs and pleura: No pleural effusions or pneumothorax. Lungs are clear. Mediastinum: Mediastinal contours appear normal. Heart size is normal. Bones and chest wall: No suspicious bony lesions. Overlying soft tissues appear unremarkable. IMPRESSION: Interval endotracheal tube as above. Remaining exam is stable. Dictated by: Maria Ines Smith M.D. on 12/24/2016 at 14:10 Approved by: Maria Ines Smith M.D. on 12/24/2016 at 14:11 Cardiac Echo Impressions Echocardiogram Report Study Date: 12/24/2016 Height: 66 in Hospital Exam Location: [facility] Weight: 147 lb Gender: Other BSA: 1.8 m2 : 1950 Age: 66 yrs BP: 91/65 mmHg Reason For Study: POST PROCEDURE Ordering Physician: Performed By: Vinicio Reeder Interpretation Summary Limited study due to supine position during image acquisition. 1.The estimated ejeciton fraction is 35-40%. Multisegment wall motion abnormalities are seen. Elevated E/e suggest elevated left atrial filling pressures. 2. Mild to moderately reduced systolic function. 3. Mild mitral regurgitation. 4. IVC is not plethoric. 5. No prior study is available for comparison. 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 Patient was referred to Dr. Jarod Wilson for cardiology evaluation. Patient underwent a outpatient stress test which was suggestive of ischemic cardiac disease. Patient was therefore brought in for an elective cardiac catheterization. Patient was extremely anxious and was given some Ativan. She became quite somnolent and soon thereafter became easily arousable. Patient underwent coronary artery catheterization was found to have 2 lesions in tandem in her right coronary artery and an approximately 90% proximal LAD lesion. Dr. Torres was contacted to assist with intervention for these lesions. Anesthesia was present to help with the procedure due to patient 's anxiety level and need for some sedation. She apparently was given some propofol. By the time Dr. Torres had scrubbed in and was available to help with the procedure the patient apparently was once again less responsive. A blood gas revealed a CO2 that was over 150. Patient was promptly intubated and placed on the ventilator. The percutaneous intervention for the LAD lesion in the tandem RCA lesions was aborted. Patient was transferred over to the intensive care unit for further evaluation and treatment. Acute on chronic respiratory failure - Patient intubated and on the ventilator - No acute events over night. Currently on Fio2 of 30% with ph of 7.4, pCO2 of 41, and SpO2 of 98% - history of chemical exposure as a hairdresser for years and also tobacco abuse. Quit smoking before three years. - Vent management as per fireworks display specialist. Ischemic cardiomyopathy with acute on chronic systolic congestive heart failure. - She has a proximal LAD lesion of 90% and 2 in tandem RCA lesions. These were seen on cardiac catheterization today. - Patient will need intervention for these lesions as soon as she is stable enough for taking her back to the cardiac catheterization laboratory. - Possible Cardiac Cath on Tuesday. Pt will likely to be intubated till tuesday. - Patient's ejection fraction is 35-40% and echocardiogram performed today. - We will continue IV Lasix - Started on aspirin, prasugrel by regulatory associate. History of hypertension -Patient takes losartan 50 mg daily and furosemide 40 mg daily. Disposition: Patient will likely be here for 72 hours or more for the evaluation and treatment and management of above problems. GI Prophylaxis: H2 vinay VTE Prophylaxis: Other (patient has received numerous doses of heparin IV) VTE Mechanical Devices: Intermittant Pneumatic CD Resuscitation Status: CPR: Attempt Resuscitation Rashaun Hughes MD Dec 25, 2016 12:24
--- NOTE | 2016-12-25 14:32 | PCM.PNMED ---
Subjective Date of Service Dec 25, 2016 Subjective Overnight patient range stable. No pressors needed. Patient is on light sedation with propofol 20 and fentanyl 50. Family states the patient was waking up at 4 AM Squeezing communicate with head shakes. Patient was initially agitated but did come down with family by bedside. Discussed with Dr. Wilson this morning implants are in place for stent placement on Tuesday. Patient has remained intubated over the weekend. Exam Vital Signs Vital Sign - Last Date Time Temp Pulse Resp B/P Pulse Ox O2 Delivery O2 Flow Rate FiO2 12/25/16 08:30 Ventilator 12/25/16 08:30 36.8 89 15 110/53 96 35 12/24/16 08:51 4.00 Intake and Output 12/24/16 12/24/16 12/25/16 Cumulative From/Thru 15:00 23:00 07:00 12/24/16 08:51 - 12/25/16 06:20 Intake Total 532 ml 1614 ml 2146 ml Output Total 500 ml 1200 ml 1700 ml Balance 32 ml 414 ml 446 ml Intake Oral 0 ml 0 ml IV Total 532 ml 1614 ml 2146 ml Output Urine Total 450 ml 1100 ml 1550 ml Gastric Drainage Total 50 ml 100 ml 150 ml # Bowel Movements 0 0 Exam General: Patient is intubated and sedated. Intermittent movement Cardio: Regular rate and rhythm Respiratory: Clear to auscultation bilaterally no wheezes Abdomen: Positive bowel sounds soft Psych: Denies assisted intubation sedation Neuro: Pupils are reactive bilaterally IVs and Medications Medications Reviewed: Medications were reviewed in detail Lab and Diagnostics Result Diagram: 12/24/16 1335 12/25/16 0500 X-Rays, CTs and MRIs PROCEDURE: X-RAY CHEST ONE VIEW, PORTABLE ([id number]) INDICATIONS: TUBE PLACEMENT TECHNIQUE: One view of the chest was acquired. COMPARISON: [facility], CR, XR CHEST 1VW (PORTABLE), 12/24/2016, 9: 44. FINDINGS: Surgical changes and devices: Endotracheal tube is present approximately 3.2 cm superior to the aftab. Lungs and pleura: No pleural effusions or pneumothorax. Lungs are clear. Mediastinum: Mediastinal contours appear normal. Heart size is normal. Bones and chest wall: No suspicious bony lesions. Overlying soft tissues appear unremarkable. IMPRESSION: Interval endotracheal tube as above. Remaining exam is stable. Dictated by: Maria Ines Smith M.D. on 12/24/2016 at 14:10 Approved by: Maria Ines Smith M.D. on 12/24/2016 at 14:11 Cardiac Echo Impressions Echocardiogram Report Name: MARYJANE WEBER Study Date: 12/24/2016 Height: 66 in Hospital Exam Location: [facility] Weight: 147 lb Gender: Other BSA: 1.8 m2 : 1950 Age: 66 yrs BP: 91/65 mmHg Reason For Study: POST PROCEDURE Ordering Physician: Performed By: Vinicio Reeder Interpretation Summary Limited study due to supine position during image acquisition. 1.The estimated ejeciton fraction is 35-40%. Multisegment wall motion abnormalities are seen. Elevated E/e suggest elevated left atrial filling pressures. 2. Mild to moderately reduced systolic function. 3. Mild mitral regurgitation. 4. IVC is not plethoric. 5. No prior study is available for comparison. Assessment & Plan Assessment 1. Acute on chronic hypercarbic respiratory failure 2. Ischemic cardiomyopathy with ejection fraction 35-40% 3. CAD with significant obstruction in the LAD and RCA 4. Advanced COPD Neurological: Patient is given very light sedation. With propofol and fentanyl at approximately 20 and 50 respectively. Patient was awakened in the morning was able to respond with family. Cardiovascular: Ischemic cardiomyopathy second to severe CAD. Patient is currently stable blood pressure heart rate within range. Discuss with Dr. Wilson with plan for patient to go to odd job laborer on Tuesday for stenting with Dr. Torres. We will continue to monitor on telemetry. Respiratory: Severe hypercapnia has resolved. Patient's ABG this morning was abnormal for her as she has COPD. Currently stable on the vent and she will remain sedated with fentanyl and propofol. We will attempt to keep the fentanyl and propofol little lower. Patient was awake this morning. Patient also receiving duonebs every 4 hours with an additional PRN every 2 hours. Prednisone continues for possible COPD exacerbation. Plan for extubation is likely Tuesday after patient had stents placed on Tuesday. GI: Will defer a bowel regimen to primary team Renal: Stable with creatinine of 0.42 Nutrition: Patient is nothing by mouth at this time with no plans to start nutrition parenterally. Disposition: Patient remained on the vent until after cardiac stenting. Time spent: 1 hour GI Prophylaxis: H2 vinay VTE Prophylaxis: Other (patient has received numerous doses of heparin IV) VTE Mechanical Devices: Intermittant Pneumatic CD Resuscitation Status: CPR: Attempt Resuscitation Attending Statement The patient was seen and examined together with Dr. Evangelista on 12/25/2016 and I agree with the history, exam and plan as outlined in the note above. Garry Evangelista DO Dec 25, 2016 11:00 Sarath Grey MD Jan 19, 2017 10:39
--- NOTE | 2016-12-25 15:00 | NUR ---
Ventilator Humidity: RT was called to room to address pt's husbands concerns regarding humidity/condensation accumulating near the expiratory cassette exhalation port. He expressed concerns that "standing water" is unsanitary and was very worried that it may drip on the floor. I explained that the pt is breathing heated air and that it is common for the condensation to build up. I went on and showed him that there are several bacteria filters in place on the vent and that the water he sees is not dirty, but simply filtered condensation. I showed him that there was some trapped water in the disposable filter and I replaced it, which again is normal, and explained that we check the filters daily and change when needed. All questions answered at this time.
[2016-12-25 17:10] LABS: Magnesium 1.9 mg/dL (1.6-2.6)
[2016-12-25] MEDS: fentaNYL 2,500 mCg/250 mL 2,500 MCG in IV Premix 1 EACH IV SCH (17:30)
[2016-12-25] MEDS ORDERED: KCl 40 mEq/100 mL (CENTRAL) 40 MEQ in IV Premix 1 EACH IV ONE (18:55)
[2016-12-26] VITALS (12 sets, daily range): BP systolic 99–172; BP diastolic 44–76; PULSE 73–97; RESP 13; O2SAT 94–97
[2016-12-26] MEDS: Albuterol-Ipratropium 3 mL Inhalation Solution NEB SCH ×6 (00:40→19:41)
[2016-12-26] MEDS: Heparin 5,000 Unit/mL Inj SUBQ SCH ×3 (01:47→16:30)
[2016-12-26] MEDS: Propofol Inj 1,000,000 MCG in IV Premix 1 EACH IV SCH ×2 (05:31→20:45)
[2016-12-26 05:35] LABS: BASOPHILS % (AUTO) 0 % (0-3); EOSINOPHILS % (AUTO) 0 % (0-5); MONOCYTES % (AUTO) 9.4 % (4-12); Mean Corpuscular Hemoglobin 28.3 pg (27.0-35.0); Mean Corpuscular Volume 89.3 fL (81-100); NEUTROPHILS % (AUTO) 83.8 % (40-74); Platelet Count 191 bil/L (150-400)
--- NOTE | 2016-12-26 06:05 | NUR ---
Hemodynamics Pt remains intubated and sedated. She wakes up occasionally during care. She appears anxious when awake. VSS. Tolerating current vent settings. No overt complications noted.
[2016-12-26] MEDS: Furosemide 10 mg/mL 2 mL Inj IVPUSH SCH (07:38)
[2016-12-26] MEDS: MethylprednisoLONE Sodium Succinate 40 mg/mL Inj IVPUSH SCH ×2 (08:30→20:45)
--- NOTE | 2016-12-26 11:31 | PCM.ANEP2 ---
Post Anesthesia Evaluation ASA/CMS Post Anesthesia Date of Service: Dec 26, 2016 VS in Patient's Normal Range?: Yes Resp Stable; Airway Patent?: No CV Function & Hydration Stable: Yes Mental Status Recovered?: No Pain control Satisfactory?: Yes N/V Control Satisfactory?: Yes Additional Comments Patient remains sedated and intubated in ICU on ventilator. Long discussion with patients daughter and granddaughter regarding patients course and why she ended up in ICU. They are understandably upset. Hopefully will be able to wean off vent after stents put in tomorrow. Bertin Shi MD Dec 26, 2016 11:31
--- NOTE | 2016-12-26 12:14 | PCM.PNMED ---
Subjective Date of Service Dec 26, 2016 Subjective - Pt seen and examined this morning. She is sedated and intubated. - Not in acute distress. Exam Vital Signs Vital Sign - Last Date Time Temp Pulse Resp B/P Pulse Ox O2 Delivery O2 Flow Rate FiO2 12/26/16 08:00 83 120/52 97 35 12/26/16 04:30 37.1 13 Mechanical Ventilator 12/24/16 08:51 4.00 Intake and Output 12/25/16 12/25/16 12/26/16 Cumulative From/Thru 15:00 23:00 07:00 12/24/16 08:51 - 12/26/16 05:47 Intake Total 1653 ml 1386 ml 5185 ml Output Total 1650 ml 400 ml 3750 ml Balance 3 ml 986 ml 1435 ml Intake Oral 30 ml 30 ml IV Total 1623 ml 1386 ml 5155 ml Output Urine Total 1500 ml 400 ml 3450 ml Gastric Drainage Total 150 ml 300 ml # Bowel Movements 0 0 Exam General: Patient is sedated on the ventilator. She is moving all 4 extremities and has soft restraints on her wrist and ankles. HEENT: Head is atraumatic and normocephalic. Eyes: Pupils are pinpoint, however equally round and reactive to light and accommodation. Extraocular muscles are unable to be tested. Sclera are white, anicteric. Subconjunctival mucosa is pink. Ears and nose are unremarkable. Oropharynx: Patient is intubated with an endotracheal tube in place. There is no mucosal lesions evident, there is no thrush evident, I am unable to see the posterior pharynx. Neck: Is supple, there are no nodes, or masses or tenderness. Chest: Is significant for coarse breath sounds on the ventilator. There are no significant rales, rhonchi, wheezes or rubs. Heart: Rate, rhythm is regular. Heart tones are distant There is obvious murmur , rub or gallop. Abdomen: Good bowel sounds are present. Abdomen is obese, soft, nontender, no organomegaly or masses were appreciated. Extremities: Are symmetrical and well perfused. There is no edema, there is no cellulitis, no rash. Neurologic: Patient is moving all 4 extremities. Patient has soft restraints on her wrists and ankles for her own protection. Full neurological exam could not be performed as patient is sedated on the ventilator.. Psychiatric: Patient is sedated on ventilator. IVs and Medications Medications Reviewed: Medications were reviewed in detail Lab and Diagnostics Result Diagram: 12/26/1651912/26/16519 X-Rays, CTs and MRIs PROCEDURE: X-RAY CHEST ONE VIEW, PORTABLE ([id number]) INDICATIONS: TUBE PLACEMENT TECHNIQUE: One view of the chest was acquired. COMPARISON: [facility], CR, XR CHEST 1VW (PORTABLE), 12/24/2016, 9: 44. FINDINGS: Surgical changes and devices: Endotracheal tube is present approximately 3.2 cm superior to the aftab. Lungs and pleura: No pleural effusions or pneumothorax. Lungs are clear. Mediastinum: Mediastinal contours appear normal. Heart size is normal. Bones and chest wall: No suspicious bony lesions. Overlying soft tissues appear unremarkable. IMPRESSION: Interval endotracheal tube as above. Remaining exam is stable. Dictated by: Maria Ines Smith M.D. on 12/24/2016 at 14:10 Approved by: Maria Ines Smith M.D. on 12/24/2016 at 14:11 Cardiac Echo Impressions Echocardiogram Report Name: MARYJANE WEBER Study Date: 12/24/2016 Height: 66 in Hospital Exam Location: [facility] Weight: 147 lb Gender: Other BSA: 1.8 m2 : 1950 Age: 66 yrs BP: 91/65 mmHg Reason For Study: POST PROCEDURE Ordering Physician: Performed By: Vinicio Reeder Interpretation Summary Limited study due to supine position during image acquisition. 1.The estimated ejeciton fraction is 35-40%. Multisegment wall motion abnormalities are seen. Elevated E/e suggest elevated left atrial filling pressures. 2. Mild to moderately reduced systolic function. 3. Mild mitral regurgitation. 4. IVC is not plethoric. 5. No prior study is available for comparison. 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 Patient was referred to Dr. Jarod Wilson for cardiology evaluation. Patient underwent a outpatient stress test which was suggestive of ischemic cardiac disease. Patient was therefore brought in for an elective cardiac catheterization. Patient was extremely anxious and was given some Ativan. She became quite somnolent and soon thereafter became easily arousable. Patient underwent coronary artery catheterization was found to have 2 lesions in tandem in her right coronary artery and an approximately 90% proximal LAD lesion. Dr. Torres was contacted to assist with intervention for these lesions. Anesthesia was present to help with the procedure due to patient 's anxiety level and need for some sedation. She apparently was given some propofol. By the time Dr. Torres had scrubbed in and was available to help with the procedure the patient apparently was once again less responsive. A blood gas revealed a CO2 that was over 150. Patient was promptly intubated and placed on the ventilator. The percutaneous intervention for the LAD lesion in the tandem RCA lesions was aborted. Patient was transferred over to the intensive care unit for further evaluation and treatment. Acute on chronic respiratory failure - Patient intubated - No acute events over night. Currently on Fio2 of 25% - history of chemical exposure as a hairdresser for years and also tobacco abuse. Quit smoking before three years. - Vent management as per yarn weight and strength tester. - Plan is to keep her on ventilator until cardiac cath tomorrow. Ischemic cardiomyopathy with acute on chronic systolic congestive heart failure. - She has a proximal LAD lesion of 90% and 2 in tandem RCA lesions. These were seen on cardiac catheterization. - Patient will need intervention for these lesions as soon as she is stable enough for taking her back to the cardiac catheterization - Possible Cardiac Cath on Tuesday. Pt will likely to be intubated till Tuesday. - Patient's ejection fraction is 35-40% and echocardiogram performed today. - We will continue IV Lasix - Started on aspirin, prasugrel by test baker. History of hypertension - Patient takes losartan 50 mg daily and furosemide 40 mg daily. Disposition: Patient will likely be here for 48 hours or more for the evaluation and treatment and management of above problems. GI Prophylaxis: H2 vinay VTE Prophylaxis: Other (patient has received numerous doses of heparin IV) VTE Mechanical Devices: Intermittant Pneumatic CD Resuscitation Status: CPR: Attempt Resuscitation Rashaun Hughes MD Dec 26, 2016 12:14
--- NOTE | 2016-12-26 15:14 | DRSVH ---
PROCEDURE: X-RAY CHEST ONE VIEW, PORTABLE ([id number]) INDICATIONS: Intubation. TECHNIQUE: One view of the chest was acquired. COMPARISON: [facility], CR, XR CHEST 2VW, 11/26/2016, 11:43. [facility], CR , XR CHEST 1VW (PORTABLE), 12/24/2016, 9:44. [facility], CR, XR CHEST 1VW (PORTABLE), 12/08, 13:32. [facility], CR, XR CHEST 1VW (PORTABLE), 12/24/2016, 16:25. FINDINGS: Surgical changes and devices: Right IJ central line, endotracheal tube and nasogastric tube are in ex pected position. Lungs and pleura: No pleural effusions or pneumothorax. Lungs are clear. Mediastinum: Mediastinal contours appear normal. Heart size is mildly increased but stable. Bones and chest wall: No suspicious bony lesions. Overlying soft tissues appear unremarkable. IMPRESSION: Stable chest. Dictated by: Zainab Hill M.D. on 12/26/2016 at 9:38 Approved by: Zainab Hill M.D. on 12/26/2016 at 9:40
[2016-12-26] MEDS: fentaNYL 2,500 mCg/250 mL 2,500 MCG in IV Premix 1 EACH IV SCH (17:00)
--- NOTE | 2016-12-26 17:28 | NUR ---
Social Work: Note D&A: HOME CARE PHYSICAL THERAPIST reviewed EMR, which states that pt experienced respiratory distress and became unresponsive during elective cardiac catheterization, following a stress test. Pt is current sedated and on the ventilator. No family has been present to complete assessment. Pt primary insurance is [employer], PCP is Rocky Li DO. P: HOME CARE PHYSICAL THERAPIST will follow for any needs, as appropriate. SONIA Duran
--- NOTE | 2016-12-26 18:00 | NUR ---
Freq updates to pt's Spouse & family members by MDs, RNs, RTs Cardiac & respiratory teaching reviewed in detail; questions addressed by staff, Cardiology, Pulmonology, Hospitalist teams. See CCU bedside flowsheet for data. Consent for tomorrow Heart Cath reviewed in detail by Dr. Torres; signed by pt's spouse.
--- NOTE | 2016-12-26 20:11 | PROG NOTE ---
[address] [address] PROGRESS NOTE PATIENT: MARYJANE WEBER : 1950 MR#: [id number] ADMIT: 12/24/2016 JOB ID: [id number] DATE: 12/26/2016 PROBLEM LIST: 1. Acute ventilatory failure. 2. COPD. 3. Coronary artery disease. SUBJECTIVE: Patient is sedated on ventilator. OBJECTIVE: Temperature 37.1, pulse mid 70s, low 80s. Respiratory rate 13 with ventilator set at 13. Blood pressure 115/51. O2 sat on FiO2 35%, PEEP of 5 is 96%. General appearance: Sedated. Appears comfortable. Chest: Somewhat diminished breath sounds bilaterally. Lung stuart are clear. Pulmonary mechanics show a peak inspiratory pressure of 22 with a tidal volume of 420 with PEEP of 5. Plateau of 15. PEEP is set at 5, measured at 5. Heart: Regular rhythm. Heart tones normal. Abdomen: Soft. A few bowel tones. Extremities: Maybe trace pretibial edema. LABORATORY DATA: Shows a white count of 5900 with 83 polymorphonuclears, 6 lymphocytes, 9 monocytes. Hemoglobin 13.5 has slowly been drifting down over the past 48 hours. Platelet count stable at 191,000. Sodium 140, potassium 3.9, chloride 104, CO2 of 27, BUN 17, creatinine 0.3, calcium 8.5. Sputum Gram stain shows rare polys. Growing some light mixed kalyan. Chest x-ray shows lung stuart are clear. Endotracheal tube in good position. Arterial blood gases on FiO2 of 35%, PEEP of 5, tidal volume of 420, and respiratory rate of 13, shows pO2 of 112, pCO2 of 39, pH 7.44. ASSESSMENT: 1. Acute ventilatory failure. She is doing reasonably well. Has a normal carbon dioxide with a relatively normal pH. May run a slightly higher pCO2, maybe in the low 40s, but I do not think it is worth changing the ventilator around for that minimal nonsignificant physiologic change. 2. Anxiety. Sedation seems to be working well. PLAN: 1. Continue current ventilatory support. 2. Stat potassium and magnesium. 3. Morning bloods consist of CBC with diff, platelet count, CMP, magnesium, phosphorus, proTime, PTT. 4. Discussed the situation with family. Plan is for cardiac catheterization tomorrow, hopefully extubation to closely follow. TIME SPENT: Time spent so far in critical care 35 minutes.
[2016-12-26] MEDS: 0.9% Sodium Chloride 1,000 ML IV PRN (20:45)
[2016-12-27] VITALS (21 sets, daily range): BP systolic 114–168; BP diastolic 41–67; PULSE 62–98; RESP 13; O2SAT 94–97
[2016-12-27] MEDS: Albuterol-Ipratropium 3 mL Inhalation Solution NEB SCH ×6 (00:37→19:46)
[2016-12-27] MEDS: Heparin 5,000 Unit/mL Inj SUBQ SCH ×3 (00:39→16:22)
[2016-12-27] MEDS: Propofol Inj 1,000,000 MCG in IV Premix 1 EACH IV SCH ×6 (00:40→20:04)
--- NOTE | 2016-12-27 04:07 | ABG ---
DateTimeAnalyzed 04:02:00 -_ pH ____7.429 - 7.350 7.450 pCO2 ___39.7__ -mmHg 35.0 45.0 pO2 ___86.0__ -mmHg 69.0 116 HCO3- ___25.9__ -mmol/L 22.0 26.0 ABE ____2.0__ -mmol/L -2.0 2.0 tHb ___13.7__ -g/dL O2Hb ___95.3__ -% COHb ____0.8__ -% MetHb ____1.0__ -% sO2 ___97.0__ -% FIO2 ___35.0__ -% PRVC 13 - PEEP ____5.0__ -cmH2O Vt __420.0__ -L Drawn By blf - Date/Time Notified____ 04:07:00 -_ Spontaneous_RR ___13.0__ -b/min Notified By blf - Notified Whom Abu Leroy RN - B 746 -mmHg tO2 ___18.4__ -Vol% OrderingPhysicianInitials bak - Thad test N/A -
[2016-12-27 05:10] LABS: BASOPHILS % (AUTO) 0 % (0-3); EOSINOPHILS % (AUTO) 0 % (0-5); MONOCYTES % (AUTO) 7.8 % (4-12); Mean Corpuscular Hemoglobin 28.5 pg (27.0-35.0); Mean Corpuscular Volume 89.3 fL (81-100); NEUTROPHILS % (AUTO) 87.9 % (40-74); Platelet Count 191 bil/L (150-400)
[2016-12-27 05:37] LABS: INR 0.96 ratio
[2016-12-27 05:42] LABS: Magnesium 2.1 mg/dL (1.6-2.6); Phosphorus 2.9 mg/dL (2.5-4.9)
--- NOTE | 2016-12-27 06:54 | NUR ---
Mentation Pt wakes up during care. She follows command appropriately. She also nods with her head for yes and no type of questions. VSS. Tele monitor was showing continues bigeminy PVCs. Low grade temp noted this am. Spouse at the bedside at all times providing support and comfort. Refer to CCU flowsheet for further details.
[2016-12-27] MEDS: MethylprednisoLONE Sodium Succinate 40 mg/mL Inj IVPUSH SCH ×2 (08:20→20:03)
[2016-12-27] MEDS: Furosemide 10 mg/mL 2 mL Inj IVPUSH SCH (08:24)
--- NOTE | 2016-12-27 08:25 | DRSVH ---
PROCEDURE: X-RAY CHEST ONE VIEW, PORTABLE ([id number]) INDICATIONS: ventilatory failure TECHNIQUE: One view of the chest was acquired. COMPARISON: [facility], CR, XR CHEST 1VW (PORTABLE), 12/26/2016, 4:44. FINDINGS: Surgical changes and devices: Stable position of ETT, nasogastric tube and right IJ CVL. Lungs and pleura: No pleural effusions or pneumothorax. Lungs are clear, interstitium is prominent. Mediastinum: Mediastinal contours appear normal. Heart size is normal. Bones and chest wall: No suspicious bony lesions. Overlying soft tissues appear unremarkable. IMPRESSION: Interstitial prominence similar to prior examination otherwise no change from prior exam. Dictated by: Howie Hassan RRA Interpreted: Maria Ines Smith MD on 12/27/2016 at 8:24 Transcribed by: KETTY on 12/27/2016 at 8:24 Approved by: Maria Ines Smith M.D. on 12/27/2016 at 16:30
[2016-12-27] MEDS: 0.9% Sodium Chloride 1,000 ML IV PRN (09:50)
[2016-12-27] MEDS ORDERED: Pantoprazole 4 mg/mL 10 mL Inj IVPUSH ONE (10:40)
--- NOTE | 2016-12-27 11:34 | NUR ---
NUTRITION FOLLOW UP: ASSESS: 66 YO F admitted after elective cardiac catheterization which required intubation. Plan for repeat cardiac catheterization today with possible extubation after, per CCU rounds. Pt has been NPO X 3 days. 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 DIET: NPO. LABS: Reviewed. Cr 0.37, Glu 148, Ca 8.4, Alb 3.1 MEDICATIONS: Reviewed. Lasix, Fentanyl, Propofol GI: No BM reported. SKIN: No issues reported. ANTHROPOMETRICS: Current Wt: 70.8 kg, BMI: 25.2 kg/m2. IBW: 59.1 kg (113.4% IBW) ESTIMATED NEEDS (COPD, VENT): Calories: 5793-4846 kcal (25-30 kcal/kg BW) Protein: 101-121 g protein (1.5-1.8 g/kg BW) Fluid: Approx. 1675 mL (25 mL/kg BW) NUTRITION DIAGNOSIS: 1) Inadequate oral intake related to inability to consume sufficient energy, as evidenced by NPO / vent status. INTERVENTION: 1) If pt unable to be extubated after heart cath, recommend initiate enteral feeding of Pulmocare at 10 ml/hr x 24 hr. Once tolerance established, recommend advance 5 ml every 4 hr. to goal rate 55 ml/hr. In addition, recommend adding 1 packet ProSource three times per day. Flush dose 40 ml H2O every 4 hr. Enteral feeding at goal would provide 1815 kcal, 109 g protein (76 g from formula + 33 g from ProSource), sufficient to meet 100% nutrient needs. 2) Adjust goal rate daily based on Propofol rate. MONITOR/EVALUATE: NPO/vent status, POC, labs, GI/nutrition status. Follow per high nutrition risk guidelines.
[2016-12-27] MEDS: Chlorhexidine 0.12% 15 mL Oral Solution MT SCH ×2 (11:49→20:03)
[2016-12-27] MEDS ORDERED: 0.9% Sodium Chloride 0 ML ONE (12:49)
[2016-12-27] MEDS ORDERED: Heparin 1,000 Units/500 mL NS Premix IV ONE ×2 (12:49→13:09)
[2016-12-27] MEDS ORDERED: Heparin 5,000 Units/500 mL NS Premix IV ONE ×2 (12:50→14:04)
[2016-12-27] MEDS ORDERED: Nitroglycerin 50,000 mcg/250 mL D5W Premix IV ONE (12:57)
[2016-12-27] MEDS ORDERED: Heparin 1,000 Unit/mL 10 mL Inj ONE ×3 (12:57→13:56)
[2016-12-27] MEDS ORDERED: 0.9% Sodium Chloride 1,000 ML ONE (13:12)
[2016-12-27] MEDS ORDERED: Atropine 1 mg/10 mL (Code) Syringe ONE (13:27)
[2016-12-27] MEDS ORDERED: 0.9% Sodium Chloride 1,500 ML ONE (14:20)
[2016-12-27] MEDS ORDERED: 0.9% Sodium Chloride 500 ML ONE ×2 (14:27→20:08)
--- NOTE | 2016-12-27 15:33 | NUR ---
Went to wharf labourer with patient at 1300 and returned at 1515. Patient transported on portable vent with out any respiratory issues.
--- NOTE | 2016-12-27 15:48 | NUR ---
Pt to laborer mine at approx 1pm Pt taken to laborer mine on the vent with RT and CCU nurse. She tolerated the procedure well and continued on her same sedation while in the laborer mine. She tolerated the procedure well and arrived back in CCU at approx 1515hrs. Right groin site is intact with a small amount of bleeding.
[2016-12-27] MEDS: fentaNYL 2,500 mCg/250 mL 2,500 MCG in IV Premix 1 EACH IV SCH (17:29)
--- NOTE | 2016-12-27 18:11 | PCM.PNMED ---
Subjective Date of Service Dec 27, 2016 Subjective 66-year-old woman presented with chest pain and experienced acute respiratory failure with hypercarbia requiring intubation. Patient is awake and responsive on ventilator today. Exam Vital Signs Vital Sign - Last Date Time Temp Pulse Resp B/P Pulse Ox O2 Delivery O2 Flow Rate FiO2 12/27/16 17:30 70 13 165/66 12/27/16 16:37 97 35 12/27/16 16:30 Ventilator 12/27/16 16:30 36.9 12/24/16 08:51 4.00 Intake and Output 12/26/16 12/26/16 12/27/16 Cumulative From/Thru 15:00 23:00 07:00 12/24/16 08:51 - 12/27/16 06:25 Intake Total 1333 ml 1418 ml 7936 ml Output Total 1350 ml 800 ml 5900 ml Balance -17 ml 618 ml 2036 ml Intake Oral 30 ml 60 ml IV Total 1303 ml 1418 ml 7876 ml Output Urine Total 1200 ml 500 ml 5150 ml Gastric Drainage Total 150 ml 300 ml 750 ml # Bowel Movements 0 0 Exam General: Intubated, alert, no acute distress HEENT: sclerae anicteric, oral mucosa moist Neck: no JVD Chest: clear to auscultation Cardiac: S1S2, no murmur Abdomen: BS normal, non-tender Extremities: No peripheral edema Neuro: Unable to test mental status, cranial nerves symmetric, toes extremities with normal strength and coordination IVs and Medications Medications Reviewed: Medications were reviewed in detail Lab and Diagnostics Result Diagram: 12/27/16 0500 12/27/16 0500 X-Rays, CTs and MRIs PROCEDURE: X-RAY CHEST ONE VIEW, PORTABLE ([id number]) INDICATIONS: TUBE PLACEMENT TECHNIQUE: One view of the chest was acquired. COMPARISON: [facility], CR, XR CHEST 1VW (PORTABLE), 12/24/2016, 9: 44. FINDINGS: Surgical changes and devices: Endotracheal tube is present approximately 3.2 cm superior to the aftab. Lungs and pleura: No pleural effusions or pneumothorax. Lungs are clear. Mediastinum: Mediastinal contours appear normal. Heart size is normal. Bones and chest wall: No suspicious bony lesions. Overlying soft tissues appear unremarkable. IMPRESSION: Interval endotracheal tube as above. Remaining exam is stable. Dictated by: Maria Ines Smith M.D. on 12/24/2016 at 14:10 Approved by: Maria Ines Smith M.D. on 12/24/2016 at 14:11 Cardiac Echo Impressions Echocardiogram Report Name: MARYJANE WEBER Study Date: 12/24/2016 Height: 66 in Hospital Exam Location: [facility] Weight: 147 lb Gender: Other BSA: 1.8 m2 : 1950 Age: 66 yrs BP: 91/65 mmHg Reason For Study: POST PROCEDURE Ordering Physician: Performed By: Vinicio Reeder Interpretation Summary Limited study due to supine position during image acquisition. 1.The estimated ejeciton fraction is 35-40%. Multisegment wall motion abnormalities are seen. Elevated E/e suggest elevated left atrial filling pressures. 2. Mild to moderately reduced systolic function. 3. Mild mitral regurgitation. 4. IVC is not plethoric. 5. No prior study is available for comparison. 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 Wilson. Patient was extremely anxious and was given some Ativan. She became quite somnolent and soon thereafter became easily arousable. Patient underwent coronary artery catheterization was found to have 2 lesions in tandem in her right coronary artery and an approximately 90% proximal LAD lesion. A blood gas revealed a CO2 that was over 150. Patient was promptly intubated and placed on the ventilator. The percutaneous intervention for the LAD lesion in the tandem RCA lesions was aborted. Patient was transferred over to the intensive care unit for further evaluation and treatment. # Acute on chronic respiratory failure. Patient intubated with FiO2 0.25, PEEP 5. - Due to hypercarbic respiratory failure we are continuing mechanical ventilation until completion of coronary interventions. - Up to extubate promptly when cardiology is finished # Ischemic cardiomyopathy with acute on chronic systolic congestive heart failure.She has a proximal LAD lesion of 90% and 2 in tandem RCA lesions. Patient's ejection fraction is 35-40%. - We will continue IV Lasix - Started on aspirin, rectal until taking oral meds - Continue prasugrel able to take by mouth # History of hypertension - Patient takes losartan 50 mg daily and furosemide 40 mg daily. Disposition: Anticipate extubation tomorrow. GI Prophylaxis: H2 vinay VTE Prophylaxis: Other (patient has received numerous doses of heparin IV) VTE Mechanical Devices: Intermittant Pneumatic CD Resuscitation Status: CPR: Attempt Resuscitation Time spent 35 minutes Severo Swenson MD Dec 27, 2016 18:11
--- NOTE | 2016-12-27 18:25 | NUR ---
P: Hemodynamics, Neuro, Respiratory, Social I,E: Pt has been a little hypertensive at times today up to 160's sys. Sedation was increased in the clinical laboratory scientist (same meds just increased doses). I am titrating those back down again now, and fentanyl is at 100mcg and Propofol at 55mcg. UOP was brisk following the lasix this am. She is in SR with frequent PVC's this am, and this afternoon freq PAC's. Pt is sedated at this time, however, she does wake up easily and has been nodding and shaking her head approp to simple questions today. She remains on the vent and sats are high 90's on 35% FIO2. Secretions are scant clear this am although this afternoon they are a little bloody. Pt's family have been at the bedside most of the day and are very good advocates asking great questions and are concerned about plan of care. Dr. Torres, Dr. Grey have spoken with them today as well as PA for cardiology. Pt's right groin site from today is intact without evidence of hematoma. She did have some slight oozing from the site initally and I have just changed the dressing so that I can check if there is further bleeding.
[2016-12-27] MEDS: Nitroglycerin 50 mg/250 mL D5W Premix IV SCH (20:56)
--- NOTE | 2016-12-27 21:12 | PROG NOTE ---
[address] [address] PROGRESS NOTE PATIENT: MARYJANE WEBER : 1950 MR#: [id number] ADMIT: 12/24/2016 JOB ID: [id number] DATE: 12/27/2016 PROBLEM LIST: 1. Acute ventilatory failure. 2. COPD. 3. Coronary artery disease. SUBJECTIVE: Patient is sedated on ventilator. OBJECTIVE: Temperature 37.2, though one temperature elevation to 37.9. Pulse mid 80s. Respiratory rate 13, with ventilator set at 13. Blood pressure 123/41. O2 sat on FiO2 of 35% is 96. I and O shows 2.7 L in, 1.7 L out. General appearance: No acute distress. However, when patient is interacted with she gets somewhat agitated. Develops patient ventilator dyssynchrony. Does settle down spontaneously after a short period of time. Chest: Decreased breath sounds bilaterally. Breath sounds are significantly diminished at the bases. Improve as one goes cephalad. Question of very mild wheezing at the right base laterally. Unable to measure pulmonary mechanics secondary to the patient's spontaneous respirations. Heart: Heart tones normal. Regular rhythm. Abdomen is soft. Bowel tones present. Extremities: Trace pretibial edema. LABORATORY: Shows a white count of 10,400, with 87 polymorphonuclears, 4 lymphocytes, 7 monocytes, no eosinophils. Hemoglobin stable at 13.8. Platelet count stable at 191,000. Sodium 140, potassium 4, chloride 105, CO2 is 26, BUN 19, creatinine 0.3. Calcium 8.4, with an albumin 3.1. Phosphorus 2.9. Magnesium 2.1. Total bilirubin 0.4. AST normal at 25. ALT normal at 18. Alkaline phosphatase normal at 54. INR 0.96. Activated PTT is 26.6. Sputum shows rare polys. Growing only light normal kalyan. Chest x-ray shows the lung stuart are clear though with prominent interstitium. Arterial blood gases on FiO2 of 0.35, PEEP of 5, rate of 13, tidal volume of 420 shows pO2 of 86, pCO2 of 39, pH 7.42. ASSESSMENT: 1. Ventilatory failure. Doing well on the ventilator. She has been maintained on mechanical ventilation in order to facilitate her cardiac catheterization with placement of stents. From a respiratory standpoint, she is doing pretty well. She is easy oxygenate and ventilate. 2. Mild temperature spike. Not sure exactly what that means. Is on bronchodilators. I do not know that we need to increase them given that she is doing well and with her coronary artery disease, do not want to stimulate a tachyarrhythmia. PLAN: 1. Continue current ventilator settings. 2. Continue current medications. 3. Await cardiac catheterization, starting weaning after catheterization. Expect the weaning to be relatively rapid as there were no apparent pulmonary issues, other than hypoventilation, prompting her intubation and mechanical ventilation. Discussed the cardiac catheterization with family. Time spent on critical care, 25 minutes.
--- NOTE | 2016-12-27 21:54 | CS94 ---
[address] [address] DIAGNOSTIC CARDIAC CATHETERIZATION PATIENT: MARYJANE WEBER : 1950 MR#: [id number] ADMIT: 12/24/2016 JOB ID: [id number] SERVICE DATE: 12/27/2016 PROCEDURE NOTE--CARDIAC CATHETERIZATION LABORATORY: DATE OF PROCEDURE: Tuesday, December 27, 2016. MACHINE SETTER: Rl Torres MD PROCEDURES: 1. Percutaneous coronary intervention (PCI)-Xience resolute drug-eluting stents (PEDRITO) of proximal and mid right coronary artery: a. Mid RCA-Xience 2.25 x 18 mm. b. Proximal RCA-resolute. c. Proximal RCA-resolut 2.5 x 18 mm. CLINICAL DETAILS: This is 66-year-old woman presents to the cardiac catheterization laboratory for planned intervention of the subtotally occluded right coronary artery with ALBA-2 flow. She initially presented with severe chronic dyspnea and some intermittent chest discomfort that led to a stress test showing anterior ischemia and apparent inferior scar. Diagnostic coronary angiogram accomplished previously showed an intermediate proximal LAD lesion about 60% at the bifurcation of a moderate to large sized diagonal with a 95% focal ostial lesion. During her evaluation, she was found to have apparent severe chronic lung disease with resting O2 saturation 70% and she required intubation for the procedure. PROCEDURAL DETAILS: I have spoken with the patient as well as extensively with the and multiple family members on several occasions prior to the procedure. We discussed the procedure including its benefits to reduce ischemia and chest discomfort and any component of dyspnea that might not be due to her lung disease. We discussed possible risks and complications. We discussed bleeding, infection and blood clot as well as injury to nerve, artery, vein or kidney; and also arrhythmia, drug reaction; or others. We discussed treatments needed including surgery, pacemaker, transfusion. We discussed more serious complications that are possible including stroke, heart attack, and emergency surgery including transfer for bypass surgery. We discussed stents including the critical importance of mandatory dual antiplatelet therapy. We discussed early and late stent failure and the possibility of multiple repeat interventional procedures. We discussed the alternative of coronary bypass surgery. After discussion, the signed informed consent to proceed. PCI OF MID AND PROXIMAL RCA: The patient was brought to the catheterization laboratory on the ventilator with monitoring by nursing staff and respiratory care staff. She was prepped sterilely and draped. She remained clinically stable including regarding her pulmonary status throughout the procedure. She has been loaded and on maintenance doses of prasugrel and aspirin for several days. Procedural anticoagulation was obtained using bolus IV doses of heparin to achieve therapeutic ACT. Aliquots of NTG IC were used as needed. The arterial access was obtained in the right common femoral artery without difficulty using fluoroscopic localization over the femoral head and modified Seldinger technique to insert a 10 cm 6-Paraguayan side-arm sheath. Catheters were advanced and exchanged over a long 0.035 inch J-tipped guidewire. The right coronary artery was engaged for intervention with a 6-Paraguayan JR-4 side-hole catheter. Initially a nci-syxd-nggg catheter had arterial damping. The right coronary artery has a severe proximal 90% lesion and a 95% subtotal mid vessel lesion at the acute margin. The distal vessel is initially poorly seen because of poor flow and there is some competitive flow distally. The lesions were crossed with a BMW wire--0.014 inches x 190 cm--which was placed distally without difficulty in the right coronary artery. PREDILATATION: Next, the mid RCA lesion was predilated with a balloon-2.0 x 15 mm--inflated twice to a maximum 8 atmospheres. The lesion is improved. Next, the proximal lesion was predilated with a Trek RX balloon--2.5 x 15 mm--inflated twice to a maximum of 10 atmospheres. The artery was substantially improved. With resumption of antegrade flow, the distal artery is seen and there appear to be no further distal lesions in the distal RCA or PDA and RPLB. With increased flow and NTG IC, the right coronary artery appears to be a 2.5 mm vessel. STENTS: Next, the distal lesion was treated with a resolute PEDRITO--2.25 x 18 mm--deployed across the lesion at 14 atmospheres. Next, the proximal lesion was treated with a resolute DESCRIBES--2.5 x 18 mm--deployed across the lesion at 16 atmospheres. POSTDILATATION: The distal lesion was postdilated with a noncompliant Trek NC balloon--2.5 x 12 mm-inflated within the distal stent to 18 atmospheres. Then, the proximal stent was postdilated with a noncompliant Trek NC balloon--2.5 x 12 mm--inflated three times within the stented segment to maximum of 22 atmospheres. Completion angiogram shows an excellent angiographic result with resumption of ALBA-3 flow, no residual lesion and no evident angiographic complication. Overall, the right coronary artery is markedly improved; appears to be at least a moderate sized vessel. Procedure without difficulty. Patient tolerated the procedure well. No complications. A side-arm sheath angiogram showed adequate access for a closure device. Arterial hemostasis was obtained without difficulty using a Perclose suture. Patient was transferred from the catheterization laboratory in stable condition back to the CCU for ongoing care including by the primary hospitalist service and critical care team. I discussed the procedure findings and recommendations with the patient; with her and multiple family members; with Cardiology, Dr. Wilson; and with the hospitalist team. CONCLUSIONS: PCI of severely diseased subtotally occluded RCA with PEDRITO of mid RCA lesion--resolute 2.25 x 18 mm; and of proximal RCA--resolute 2.5 x 18 mm. RECOMMENDATIONS: 1. ECA--ASA indefinitely. 2. Prasugrel--plan prasugrel for one year if well tolerated including ongoing cardiology followup. 3. Consider lifetime Plavix if well tolerated. I discussed with the and family the critical importance of mandatory dual antiplatelet therapy; and not to stop Plavix for any reason without immediate Cardiology consultation. 4. Consideration of staged intervention of intermediate proximal LAD lesion.
--- NOTE | 2016-12-27 22:15 | NUR ---
Nitro gtt/Urine Output 2100 - Dr. Kang decision support manager welder [employer] notified of patients SBP in the 180's, patient denies pain and calm, orders to start nitro gtt to titrate to a goal BP <140. 2215 - call person welder [employer] notified that patients urine output was 175ml of dark tea colored urine from 7417-4615, orders to monitor for now, no new medication orders received at this time, will continue to monitor. BP 146/56 on 50mcg/min Nitro.
[2016-12-27] MEDS ORDERED: 0.9% Sodium Chloride 1,000 ML IV SCH (22:18)
[2016-12-27] MEDS ORDERED: 0.9% Sodium Chloride 250 ML IV PRN (22:25)
[2016-12-28] VITALS (23 sets, daily range): BP systolic 116–210; BP diastolic 48–87; PULSE 64–93; RESP 13–17; O2SAT 95–99
[2016-12-28] MEDS: Propofol Inj 1,000,000 MCG in IV Premix 1 EACH IV SCH ×4 (00:20→21:01)
[2016-12-28] MEDS: Heparin 5,000 Unit/mL Inj SUBQ SCH ×3 (00:23→16:00)
[2016-12-28] MEDS: Albuterol-Ipratropium 3 mL Inhalation Solution NEB SCH ×6 (00:26→20:28)
--- NOTE | 2016-12-28 01:06 | PROG NOTE ---
[address] [address] PROGRESS NOTE PATIENT: MARYJANE WEBER : 1950 MR#: [id number] ADMIT: 12/24/2016 JOB ID: [id number] DATE: 12/27/2016 PROBLEM LIST: 1. Coronary artery disease, high-grade stenosis of the left anterior descending artery and high-grade stenosis of the vgr-yp-bciwva right coronary artery. 2. Respiratory failure. 3. Tobacco abuse. 4. Hypertension. 5. 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 6. Ischemic cardiomyopathy with an ejection fraction of 40%. SUBJECTIVE: This is hospital day three. The patient on evaluation is resting comfortably. She is currently on a ventilator being managed by Dr. Grey. FiO2 35, PEEP 5, pH is 7.4, CO2 is 40, blood pressure is 137/50, pulse is 78, saturation is 94%. The patient is sedated and not awake. Lungs are clear to auscultation. Auscultation of the heart reveals normal S1 and S2 without murmurs, clicks, or rubs. Palpation of the belly reveals that her belly is soft and nontender without masses. There is no peripheral edema. White blood count is 10.4, hemoglobin 13.8, hematocrit 43.3. Platelet count is 19.1, INR is 0.96. Sodium 140, potassium 4.0, chloride 105, CO2 is 26, BUN 19, creatinine is 0.37, calcium 8.4. ASSESSMENT AND PLAN: 1. Respiratory failure. The patient is being followed by Dr. Grey and we referred treatment to him. 2. Coronary artery disease. The patient went into the catheterization lab today intubated and percutaneous intervention was performed by Dr. Torres. He was able to stent the right coronary artery but was unable to perform an intervention on the LAD lesion. Dr. Wilson and Dr. Torres will discuss what can be done about that lesion tomorrow morning. I had a miguel angel conversation with the family. They are genuinely upset about what has occurred with their mother with respect to the intubation and the lengthy time in the hospital. Dr. Wilson will have a miguel angel conversation with them tomorrow morning. REGULO
--- NOTE | 2016-12-28 04:05 | NUR ---
Mentation/Hemodynamics Patient sedated on vent with Propofol and Fentanyl, awake and anxious at times and SBP increases to the 170's-180's when awake, BP 120-150's when sleeping with Nitro gtt infusing at 50mcg/hr, HR 70's NSR with PAC's/PVC's sats 96% on 35% FIO2, denies pain, brown fluid noted from OG tube, BS stable 115 at 2030, decreased urine output and MD aware, at bedside and updated on POC, uneventful shift other than increased BP and patient anxious at times, resting calm at this time, will continue to monitor, no distress noted, Addendum: 12/28/16 at 0436 by EDD VAZQUEZ RN Amended: Links added.
[2016-12-28] MEDS ORDERED: Pantoprazole 4 mg/mL 10 mL Inj IVPUSH SCH (07:45)
[2016-12-28 07:58] LABS: BASOPHILS % (AUTO) 0 % (0-3); EOSINOPHILS % (AUTO) 0 % (0-5); MONOCYTES % (AUTO) 11.6 % (4-12); Mean Corpuscular Hemoglobin 28.3 pg (27.0-35.0); Mean Corpuscular Volume 89.6 fL (81-100); Platelet Count 164 bil/L (150-400)
[2016-12-28] MEDS: Chlorhexidine 0.12% 15 mL Oral Solution MT SCH ×2 (08:08→20:55)
[2016-12-28 08:17] LABS: Magnesium 2.1 mg/dL (1.6-2.6); Phosphorus 2.4 mg/dL (2.5-4.9)
[2016-12-28] MEDS: MethylprednisoLONE Sodium Succinate 40 mg/mL Inj IVPUSH SCH (08:23)
--- NOTE | 2016-12-28 08:48 | PROG NOTE ---
[address] [address] PROGRESS NOTE PATIENT: MARYJANE WEBER : 1950 MR#: [id number] ADMIT: 12/24/2016 JOB ID: [id number] DATE: 12/28/2016 PULMONARY CRITICAL CARE FOLLOW UP NOTE: PROBLEM LIST: 1. Acute ventilatory failure. 2. COPD. 3. Coronary artery disease. 4. Anxiety. SUBJECTIVE: None. Patient sedated on the ventilator. PHYSICAL EXAMINATION: Temperature 37.2 with T-max being 37.4. Pulse 70-87, respiratory rate 13 with ventilator set at 13. Blood pressure 132/54, O2 sat on FiO2 of 35%, PEEP of 5, is 96%. I and O shows 2.8 liters in, 2.6 liters out. General appearance: Sedated. Minimal arousal to touch, none to voice. Chest clear with fairly good breath sounds bilaterally with a tidal volume of 420, PEEP of 5, peak inspiratory pressure is 27, plateau is 16. PEEP is set at 5, measured at 5. Heart: Regular rhythm. Heart tones seem normal. Abdomen is soft. Bowel tones present. Extremities: No pretibial edema. ASSESSMENT: 1. Acute ventilatory failure. The patient remains on ventilator. Will start decreasing sedation as she currently is on fentanyl 125 mg an hour and propofol 40 mcg per kg per hour. 2. Coronary artery disease. The patient showing some airflow obstruction based on pulmonary mechanics. Not too egregious. Will continue current regimen. I think we can cut back on the steroids, however. 3. Coronary artery disease. Plan is for the patient to go back to the catheterization laboratory again today. Will await direction regarding timing, logistics and continued ventilatory support. PLAN: 1. Since we are leaving her on the ventilator a bit longer, will get a chest x-ray, CBC, differential, platelet count, BMP and a mag this morning. 2. Decrease fentanyl to 100 mg an hour. 3. Protonix 40 mg daily. 4. Continue bronchodilators. 5. Decrease normal saline to 70 mL an hour. Discussed the case with Cardiology. Timing still not definitive. TIME SPENT: Critical care 34 minutes. MTDD
[2016-12-28] MEDS ORDERED: VENL75TA3 PO (09:13)
--- NOTE | 2016-12-28 09:41 | DRSVH ---
PROCEDURE: X-RAY CHEST ONE VIEW, PORTABLE ([id number]) INDICATIONS: respiratory failure TECHNIQUE: One view of the chest was acquired. COMPARISON: [facility], CR, XR CHEST 1VW (PORTABLE), 12/27/2016, 4:22. FINDINGS: Surgical changes and devices: Stable position of ETT, nasogastric tube and right IJ CVL. Lungs and pleura: No pleural effusions or pneumothorax. Lungs are clear interstitium is prominent. Mediastinum: Mediastinal contours appear normal. Heart size is enlarged. Bones and chest wall: No suspicious bony lesions. Overlying soft tissues appear unremarkable. IMPRESSION: Mild interstitial prominence unchanged. Dictated by: Howie DE OLIVEIRA Interpreted: Maria Ines Smith MD on 12/28/2016 at 9:39 Transcribed by: KETTY on 12/28/2016 at 9:40 Approved by: Maria Ines Smith M.D. on 12/28/2016 at 16:40
[2016-12-28] MEDS ORDERED: Potassium Phos (mEq) Inj 40 MEQ in Dextrose 5% 250 ML IV ONE (09:50)
[2016-12-28] MEDS ORDERED: Potassium Chloride Inj 20 MEQ in Dextrose 5% 250 ML IV ONE (10:25)
--- NOTE | 2016-12-28 10:35 | ABG ---
DateTimeAnalyzed 10:29:00 -_ pH ____7.403 - 7.350 7.450 pCO2 ___41.9__ -mmHg 35.0 45.0 pO2 ___97.9__ -mmHg 69.0 116 HCO3- ___25.6__ -mmol/L 22.0 26.0 ABE ____1.2__ -mmol/L -2.0 2.0 tHb ___11.5__ -g/dL O2Hb ___95.8__ -% COHb ____0.9__ -% MetHb ____1.2__ -% sO2 ___97.9__ -% FIO2 ___35.0__ -% PRVC 13 - PEEP ____5.0__ -cmH2O Vt __420.0__ -L Drawn By jmw - Date/Time Notified____ 10:34:00 -_ Spontaneous_RR ___13.0__ -b/min Notified By JMW - Notified Whom ___DR VILLELA - B 754 -mmHg tO2 ___15.6__ -Vol% Thad test N/A -
--- NOTE | 2016-12-28 11:07 | NUR ---
Pt scheduled to go to the laboratory technologist at [address] Wilson and Brian spoke with pt's this morning and advised heart cath is scheduled for noon. Dr. Grey also saw pt this am and spoke with rjuan david olivarez today and extubation. Pt continues on Fentanyl and Propofol at this time, although fentanyl was decreased to 100mcg from 125mcg. She is easily woken and does nod/shake her head approp to simple questions. Pt is receiving a Prowl rider at this time. BP controlled with NTG gtt which is at 40 mcg currently. Addendum: 12/28/16 at 1432 by ROSEMARY VALIENTE RN 'dru spoke with pt's this am, not .
[2016-12-28] MEDS: Nitroglycerin 50 mg/250 mL D5W Premix IV SCH (11:51)
[2016-12-28] MEDS ORDERED: Heparin 1,000 Units/500 mL NS Premix IV ONE (12:28)
[2016-12-28] MEDS ORDERED: 0.9% Sodium Chloride 2,000 ML ONE (12:28)
[2016-12-28] MEDS ORDERED: Heparin 1,000 Unit/mL 10 mL Inj ONE ×2 (12:28→12:53)
[2016-12-28] MEDS ORDERED: Nitroglycerin 50,000 mcg/250 mL D5W Premix IV ONE (12:29)
--- NOTE | 2016-12-28 14:32 | NUR ---
Pt left at approx 1230hrs for brick and blocker aid labor and returned at approx 1350hrs Pt went to brick and blocker aid labor with CCU RN and RT accompanying pt. She tolerated the procedure well, NTG was titrated down and off during the procedure, but has since been re started as BP increasing again, up to 140's- 150's sys NTG is at 10mcg at this time. Left groin site is intact no evidence of hematoma and only a small amount of blood under the op site with no new bleeding. Pulses are 3+ and 2+. Pt continues on the vent, sats mid to high 90's.
[2016-12-28] MEDS ORDERED: Atropine 1 mg/10 mL (Code) Syringe IVPUSH PRN (15:55)
[2016-12-28] MEDS ORDERED: 0.9% Sodium Chloride 250 ML BOLUS IV PRN (15:55)
[2016-12-28] MEDS: fentaNYL 2,500 mCg/250 mL 2,500 MCG in IV Premix 1 EACH IV SCH (15:55)
[2016-12-28] MEDS ORDERED: Ondansetron 2 mg/mL 2 mL Inj IVPUSH PRN (15:55)
[2016-12-28] MEDS ORDERED: 0.9% Sodium Chloride 1,000 ML IV ONE (15:55)
--- NOTE | 2016-12-28 16:28 | NUR ---
spiritual care: family lengthy conversational visit with pt's dtr joel in machine castings plasterer office, who sifted through recent medical procedures, discernments and feelings.
--- NOTE | 2016-12-28 16:50 | PCM.PNMED ---
Subjective Date of Service Dec 28, 2016 Subjective 66-year-old woman presented with chest pain and experienced acute respiratory failure with hypercarbia requiring intubation, which has been maintained through cardiac interventions. Patient is sedated but mildly responsive, on ventilator today. Very anxious, tachycardic and hypertensive when sedation is weaned. Tolerated stent today. Exam Vital Signs Vital Sign - Last Date Time Temp Pulse Resp B/P Pulse Ox O2 Delivery O2 Flow Rate FiO2 12/28/16 15:00 66 13 140/59 12/28/16 14:23 98 35 12/28/16 11:54 37.0 Mechanical Ventilator 12/24/16 08:51 4.00 Intake and Output 12/27/16 12/27/16 12/28/16 Cumulative From/Thru 15:00 23:00 07:00 12/24/16 08:51 - 12/28/16 05:00 Intake Total 1457 ml 1477 ml 69955 ml Output Total 1850 ml 525 ml 8275 ml Balance -393 ml 952 ml 2595 ml Intake Oral 80 ml 0 ml 140 ml IV Total 1377 ml 1477 ml 00336 ml Output Urine Total 1750 ml 375 ml 7275 ml Gastric Drainage Total 100 ml 150 ml 1000 ml # Bowel Movements 0 0 Exam General: Intubated, opens eyes to stimulation, no acute distress HEENT: sclerae anicteric, Neck: no JVD Chest: Generally clear to auscultation, no wheezing Cardiac: S1S2, no murmur Abdomen: BS normal, non-tender Extremities: No peripheral edema Neuro: Unable to test mental status, cranial nerves symmetric IVs and Medications Medications Reviewed: Medications were reviewed in detail Lab and Diagnostics Result Diagram: 12/28/16 0740 12/28/16 0740 X-Rays, CTs and MRIs PROCEDURE: X-RAY CHEST ONE VIEW, PORTABLE ([id number]) INDICATIONS: TUBE PLACEMENT TECHNIQUE: One view of the chest was acquired. COMPARISON: [facility], CR, XR CHEST 1VW (PORTABLE), 12/24/2016, 9: 44. FINDINGS: Surgical changes and devices: Endotracheal tube is present approximately 3.2 cm superior to the aftab. Lungs and pleura: No pleural effusions or pneumothorax. Lungs are clear. Mediastinum: Mediastinal contours appear normal. Heart size is normal. Bones and chest wall: No suspicious bony lesions. Overlying soft tissues appear unremarkable. IMPRESSION: Interval endotracheal tube as above. Remaining exam is stable. Dictated by: Maria Ines Smith M.D. on 12/24/2016 at 14:10 Approved by: Maria Ines Smith M.D. on 12/24/2016 at 14:11 Cardiac Echo Impressions Echocardiogram Report Name: MARYJANE WEBER Study Date: 12/24/2016 Height: 66 in Hospital Exam Location: [facility] Weight: 147 lb Gender: Other BSA: 1.8 m2 : 1950 Age: 66 yrs BP: 91/65 mmHg Reason For Study: POST PROCEDURE Ordering Physician: Performed By: Vinicio Reeder Interpretation Summary Limited study due to supine position during image acquisition. 1.The estimated ejeciton fraction is 35-40%. Multisegment wall motion abnormalities are seen. Elevated E/e suggest elevated left atrial filling pressures. 2. Mild to moderately reduced systolic function. 3. Mild mitral regurgitation. 4. IVC is not plethoric. 5. No prior study is available for comparison. Additional Diagnostics Cardiac catheterization 12/24/16 IMPRESSION: 1. Two-vessel coronary artery disease. 2. Proximal left anterior descending 70% to 80% stenosis, complex lesion with a high-grade ostial diagonal branch arising from the area of stenosis. 3. Two tandem lesions noted in the mid and distal right coronary artery. 4. Mature dglp-qz-fvcbb collaterals. 5. Post stress ejection fraction of 40% to 45% with 1 to 2+ mitral regurgitation. Harry Wilson 12/27/2016 PROCEDURE NOTE--CARDIAC CATHETERIZATION LABORATORY: DATE OF PROCEDURE: Tuesday, December 27, 2016. CASING FINISHER AND STUFFER: Rl Torres MD PROCEDURES: 1. Percutaneous coronary intervention (PCI)-Xience resolute drug-eluting stents (PEDRITO) of proximal and mid right coronary artery: a. Mid RCA-Xience 2.25 x 18 mm. b. Proximal RCA-resolute. c. Proximal RCA-resolut 2.5 x 18 mm. Kymberly Torres . 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 Wilson. Patient was extremely anxious and was given some Ativan. She became quite somnolent and soon thereafter became easily arousable. Patient underwent coronary artery catheterization was found to have 2 lesions in tandem in her right coronary artery and an approximately 90% proximal LAD lesion. A blood gas revealed a CO2 that was over 150. Patient was promptly intubated and placed on the ventilator. The percutaneous intervention for the LAD lesion in the tandem RCA lesions was aborted. Patient was transferred over to the intensive care unit for further evaluation and treatment. # Acute on chronic respiratory failure. Patient intubated with FiO2 0.25, PEEP 5. -Plan to attempt pressure support trial and extubation in a.m. on 12/29. # Ischemic cardiomyopathy with acute on chronic systolic congestive heart failure.She has a proximal LAD lesion of 90% and 2 in tandem RCA lesions. Patient's ejection fraction is 35-40%. - We will continue IV Lasix - Started on aspirin, rectal until taking oral meds - Continue prasugrel able to take by mouth - Beta vinay initiated - Plan to start JANNA inhibitor when taking oral # Anxiety. Patient is very reactive with hypertension and tachycardia when sedation is removed. # Hypertension - Continue nitroglycerin drip for blood pressure control - Beta vinay initiated on 12/28 - Patient takes losartan 50 mg daily and furosemide 40 mg daily as outpatient. Disposition: Anticipate extubation tomorrow. GI Prophylaxis: H2 vinay VTE Prophylaxis: Other (patient has received numerous doses of heparin IV) VTE Mechanical Devices: Intermittant Pneumatic CD Resuscitation Status: CPR: Attempt Resuscitation Time spent 35 minutes Severo Swenson MD Dec 28, 2016 16:50
--- NOTE | 2016-12-28 18:26 | DI95 ---
[address] [address] INTERVENTIONAL CARDIAC CATHETERIZATION PATIENT: MARYJANE WEBER : 1950 MR#: [id number] ADMIT: 12/24/2016 JOB ID: [id number] PROCEDURE: Percutaneous intervention on the diagonal and left anterior descending bifurcation. METEOROLOGICAL OBSERVER: Salvador La MD. and Dr. Rl Torres. This procedure was done along with Dr. Gomez. This lady had a stress test which showed anterior ischemia as well as a severe inferior defect. Dr. Torres intervened and noted and yesterday I was asked to collaborate for the LAD bifurcation lesion. Prior to the bifurcation, the patient had an eccentric 60% lesion. There is another 30% to 40% lesion past the bifurcation of the diagonal. The diagonal itself has a tight 90% lesion. The diagonal is of moderate caliber, approximately a 2 mm vessel. PROCEDURAL DETAILS: The reader is referred to the procedure log for complete details. Briefly, a 7-Maltese guide was placed in the left femoral artery. A Voda guide was used. A wire was placed in the diagonal and in the LAD respectively. The diagonal was predilated with a 2.0 balloon and then an AngioSculpt 2.5 mm balloon was used to perform a cutting balloon atherectomy of the diagonal. There was significant elastic recoil in the diagonal. However, with balloon angioplasty we were able to achieve moderate angiographic results. Following that, a 3.5 x 23 mm stent was then deployed in the proximal to mid LAD. The diagonal stayed patent and there was good ALBA-3 flow in the diagonal. At this point, the procedure was terminated. In summary, successful intervention on the left anterior descending diagonal bifurcation.
--- NOTE | 2016-12-28 19:41 | NUR ---
P: Hemodynamics, Respiratory, Neuro, Social I,E: Pt has been in SR/ST today with PAc's and PVS at times. Pt received a K Phos rider today and labs sent this evening to check. She went to the metallurgical lab technician and had a stent placed in her LAD. VS are stable, although, when anxious pt's BP and HR increases. During pressure support trial this afternoon, her BP increased to 220's sys and HR was 120's. She was re-sedated and trial stopped. Cardiology saw her this afternoon and have added medications and we will try pressure support trial again in the morning. Pt is aware and awake without sedation, she nods and shakes her head appropriately. She recognizes her family, she denies pain. HR and BP both went back to normal limits with sedation and she was placed back on her sedation and we are trying to keep this dosing as low as possible while keeping her comfortable and without anxiety. Pt's family have been at the bedside today. They have been able to speak with the physicians and have been updated by the hospitalist, cardiology and pulmonology today. Left groin site shows no sign of hematoma, pulses are 3+ and 2+. She has scant bleeding at the site, she did have a perclose. Pt had 450cc of green brown liquid out of her OG today, specimen was sent to the lab to check for occult blood. Bowel tones are hypoactive. She has not had a BM this admission, although, she has not had anything to eat or drink either. Will continue to monitor this. Pt remains afebrile.
[2016-12-28] MEDS: Pantoprazole 4 mg/mL 10 mL Inj IVPUSH SCH (20:55)
--- NOTE | 2016-12-28 22:24 | PROG NOTE ---
[address] [address] PROGRESS NOTE PATIENT: MARYJANE WEBER : 1950 MR#: [id number] ADMIT: 12/24/2016 JOB ID: [id number] DATE: 12/28/2016 PROBLEM LIST: A 66-year-old female with: 1. History of acute respiratory failure. 2. Hypercapnia requiring intubation. 3. Status post angioplasty to the right coronary artery. 4. Status post angioplasty to LAD. 5. Hypertension. 6. On ventilator. 7. Ischemic cardiomyopathy. Ejection fraction 35% to 40% with multisegment wall motion abnormalities. The patient had a successful angioplasty to the proximal LAD today and balloon angioplasty to the technically challenging 1st diagonal branch. Patient is hemodynamically stable and is being evaluated and considered for extubation at this time. The ventilator is being managed by Dr. Sarath Grey. The patient is also being followed by Dr. Severo Swenson from the hospitalist team service. The patient's blood pressure was elevated with a heart rate of 118 beats per minute, S1-S2 is normal and normal breath sounds heard. Abdomen is nontender. Lower extremities normal. Patient is currently intubated with FiO2 of 30%. The majority of the time, more than 30 minutes, was spent discussing the treatment plan with the patient's family. They had concerns about prolonged intubation for this patient and expressed their frustration with the system. I had detailed conversations about how the intervention could not be performed over the weekend. After a detailed conversation, they are satisfied with the answers. They wished to proceed with possible extubation this evening. If not, then tomorrow morning. I would leave that up to the judgment of Dr. Swenson and Dr. Grey. Clinically, she is has number one ischemic cardiomyopathy. At this time. I would like to initiate low-dose carvedilol 3.125 mg twice daily. The patient is allergic to LISINOPRIL, therefore I will start her on losartan 25 mg daily. I do not anticipate any issues at this time. The patient is already on Lasix. 2. Coronary artery disease status post angioplasty. The patient is on prasugrel 10 mg daily. She will stay on it for one year. 3. Deep venous thrombosis prophylaxis. Patient is on subcu heparin. 4. Hematemesis. Heme test results are pending. PLAN: 1. Start Coreg 3.125 mg twice daily. 2. Losartan 25 mg daily. 3. Will follow through tomorrow morning at the time of extubation and discussion with ICU team. . Total time spent 35 minutes. MTDD
[2016-12-29] VITALS (16 sets, daily range): BP systolic 108–160; BP diastolic 45–66; PULSE 60–94; RESP 13–14; O2SAT 93–98
[2016-12-29] MEDS: Albuterol-Ipratropium 3 mL Inhalation Solution NEB SCH ×6 (00:05→20:31)
[2016-12-29] MEDS: Heparin 5,000 Unit/mL Inj SUBQ SCH ×3 (00:35→17:16)
[2016-12-29] MEDS: Propofol Inj 1,000,000 MCG in IV Premix 1 EACH IV SCH ×6 (01:36→20:21)
[2016-12-29 05:14] LABS: BASOPHILS % (AUTO) 0 % (0-3); EOSINOPHILS % (AUTO) 0.2 % (0-5); MONOCYTES % (AUTO) 10.4 % (4-12); Mean Corpuscular Hemoglobin 28.3 pg (27.0-35.0); NEUTROPHILS % (AUTO) 78.9 % (40-74); Platelet Count 146 bil/L (150-400)
[2016-12-29 05:46] LABS: Magnesium 1.9 mg/dL (1.6-2.6)
[2016-12-29] MEDS ORDERED: KCl 40 mEq/100 mL Premix (K 3 - 3.7 & Creat < 2) IV ONE (06:10)
--- NOTE | 2016-12-29 06:20 | NUR ---
Mentation/Hemodynamics Patient restless and anxious at start of shift, sedation increased for the night, weaning sedation this AM and patient doing well so far, patient nodding yes and no and following all commands, BP and vitals stable, SBP 120-140's, Nitro gtt titrated off about 2330, PVC's decreased since Coreg 3.125mg given, brown fluid out OGT, no BM this shift, minimal urine output this shift total of 350ml output, uneventful shift, at bedside this AM for support, patient calm and resting at this time, will continue to monitor. Addendum: 12/29/16 at 0626 by EDD VAZQUEZ RN Amended: Links added.
[2016-12-29] MEDS: Chlorhexidine 0.12% 15 mL Oral Solution MT SCH ×2 (07:58→20:21)
[2016-12-29] MEDS: Pantoprazole 4 mg/mL 10 mL Inj IVPUSH SCH ×2 (07:59→20:21)
[2016-12-29] MEDS: MethylprednisoLONE Sodium Succinate 40 mg/mL Inj IVPUSH SCH (08:04)
--- NOTE | 2016-12-29 09:22 | PROG NOTE ---
[address] [address] PROGRESS NOTE PATIENT: MARYJANE WEBER : 1950 MR#: [id number] ADMIT: 12/24/2016 JOB ID: [id number] DATE: 12/29/2016 PULMONARY CRITICAL CARE FOLLOW UP NOTE: PROBLEMS: 1. Acute ventilatory failure. 2. COPD. 3. Coronary artery disease. 4. Anxiety. SUBJECTIVE: Patient breathing comfortably. No chest or abdominal pain. Anxious to start breathing trials to get the endotracheal tube out. OBJECTIVE: Temperature 36.5 with T-max being 37.3. Pulse 60-75. Currently 97 with patient being a bit anxious. Respiratory rate 13 with ventilator set at 13. Blood pressure 124/47. O2 sat on a FiO2 of 35%, PEEP of 5, is 96%. I and O shows 3.6 liters in, 1.5 liters out. General appearance: Awake, alert. Responding appropriately. Moving all four extremities. Chest is clear. Heart: Regular rhythm. Heart tones seem normal. Abdomen: Soft. Nondistended. Good bowel tones. Extremities: No pretibial edema. LABORATORY: Shows a white count of 8300 with 78 polymorphonuclears, 10 lymphs, 10 monocytes. Hemoglobin 10.8, relatively stable with yesterday's value being 11.2. Platelet count 146,000 and stable. Sodium 140, potassium 3.3, with the patient receiving a potassium rider. Chloride 106, CO2 is 25. BUN 15, creatinine less than 0.3. Calcium 8, magnesium 1.9. Gastric occult blood is positive. Chest x-ray pending. IMPRESSIONS: 1. Acute ventilatory failure. The patient seems ready for weaning trial. Will start with pressure support of 10/5. Respiratory rate is in the high 10s, low 20s with tidal volumes of about 600. Doing well initially. Will see if she can keep this up for any extended period of time. Concern is over the specter of severe COPD overlying the entire situation. Reported though undocumented to have an O2 sat of 71% upon arrival. Family notes a pulmonary problem but the patient apparently never initiated medical evaluation for that. 2. Coronary artery disease. Status post successful stenting yesterday. Will try to keep the blood pressure and pulse within reasonable levels. PLAN: 1. Start pressure support trial at 10/5. Phenyl has already been weaned down though she remains on some and propofol as well. She seems awake and I think we can continue those infusions to keep the edge off and get her successfully extubated and then discontinue those medications. 2. Continue q.4 nebulized bronchodilators.
--- NOTE | 2016-12-29 09:29 | ABG ---
DateTimeAnalyzed 09:23:00 -_ pH ____7.363 - 7.350 7.450 pCO2 ___46.8__ -mmHg 35.0 45.0 pO2 ___95.2__ -mmHg 69.0 116 HCO3- ___26.0__ -mmol/L 22.0 26.0 ABE ____0.8__ -mmol/L -2.0 2.0 tHb ___11.6__ -g/dL O2Hb ___95.3__ -% COHb ____1.2__ -% MetHb ____1.2__ -% sO2 ___97.6__ -% FIO2 ___35.0__ -% Pressure_Support ____5.0__ -cmH2O PEEP ____5.0__ -cmH2O Vt __483.0__ -L Drawn By jmw - Date/Time Notified____ 09:28:00 -_ Spontaneous_RR ___21.0__ -b/min Notified By JMW - Notified Whom DR KENDREGEN - B 762 -mmHg tO2 ___15.6__ -Vol% OrderingPhysicianInitials bak - Thad test N/A -
--- NOTE | 2016-12-29 09:49 | PROG NOTE ---
[address] [address] PROGRESS NOTE PATIENT: MARYJANE WEBER : 1950 MR#: [id number] ADMIT: 12/24/2016 JOB ID: [id number] DATE: 12/29/2016 IMPRESSIONS: 1. Status post respiratory failure on ventilator. 2. Coronary artery disease. 3. Hypertension. 4. Anxiety disorder. 5. Status post angioplasty to the LAD, status post angioplasty to the right coronary artery. 6. History of tobacco use. DATE: INTERVAL HISTORY: The patient did really well post intervention and remained hemodynamically stable. She did have episodes of elevated blood pressures mostly with her associated anxiety. She was trying to fight the tube. Otherwise she was stable hemodynamically. Her input/output is positive. Total body weight is 71 kg. Her O2 sat, she is due for an oxygen saturation now. Her heart rate at this time is 118 beats per minute and a blood pressure of 171/65. S1, S2 is normal. The lungs had mild crackles at the bases. LABORATORIES: White count of 8.3, hemoglobin of 10.8, hematocrit of 34.3, and platelets of 146. Chemistry panel: Potassium of 3.3 and serum creatinine is less than 3.0. PLAN AND RECOMMENDATIONS: 1. Continue with the current regimen. 2. Extubation this morning. I would monitor her input/output and overall status. 3. Gradual up titration of losartan and Coreg. 4. Recommend spironolactone if she is fluid overloaded which may act both as an antihypertensive agent as well as address her underlying ischemic cardiomyopathies. 5. Replenish potassium levels, the last K level is 3.3. TOTAL TIME SPENT: 30 minutes.
[2016-12-29] MEDS ORDERED: Dexamethasone Inj 10 MG in 0.9% Sodium Chloride-Pha MIX 50 ML IV ONE (10:20)
[2016-12-29] MEDS ORDERED: Dexamethasone 10 mg/mL Inj IV ONE (10:35)
--- NOTE | 2016-12-29 11:20 | DRSVH ---
PROCEDURE: X-RAY CHEST ONE VIEW, PORTABLE ([id number]) INDICATIONS: respiratory failure TECHNIQUE: One view of the chest was acquired. COMPARISON: [facility], CR, XR CHEST 1VW (PORTABLE), 12/28/2016, 7:54. FINDINGS: Surgical changes and devices: Stable position the ETT, nasogastric tube and right IJ CVL. Lungs and pleura: Interstitium is prominent and medial bibasilar airspace opacities are present. Mediastinum: Mediastinal contours appear normal. Heart size is normal. Bones and chest wall: No acute soft tissue or bony abnormalities. IMPRESSION: Prominent interstitium and medial bibasilar airspace opacities consistent with mild patc hy pulmonary edema, atelectasis versus aspiration or pneumonia. Dictated by: Howie Hassan [facility] Interpreted: Roberto De La Cruz MD on 12/29/2016 at 11:17 Transcribed by: MARKY on 12/29/2016 at 11:19 Approved by: Roberto De La Cruz M.D. on 12/29/2016 at 17:47
--- NOTE | 2016-12-29 11:29 | NUR ---
Pressure support and ventilator weaning. Sedation vacation initiated on weight shifter early this morning and continued as day shift began. Patient titrated to a very low sedation . Patient very awake and alert responding appropriately and following directions. Placed on PST 1010 for 1 hour and then 5/10 for an additional hour. ABGs done with good results however patient did not have a ET cuff leak and would appear to have significant throat swelling. Explained to patient and that it is not yet safe to extubate. Dr. Torres explained would like to give patient decadron IV however it is listed on patient's medication list. Patient and are unsure and do not remember having any allergy . Call placed to Dr. Li's have who report they have it listed as a very old allergy but are unsure of the circumstances. With consultation of the pharmacist and family decadron 10mg IV was given at 1030. Patient has tolerated fine with no adverse reactions. Plan to recheck for cuff leak at 1400. Patient and are aware and agreeable. Vital signs stable at this time. Addendum: 12/29/16 at 1829 by MITESH DELEON RN CUFF CHECK CHECKED ET cuff, for leak still is none. Dr. Torres present. Scheduled decadron ordered. aware and agreeable to wait to extubate
[2016-12-29] MEDS ORDERED: Dexamethasone 10 mg/mL Inj ONE (12:46)
--- NOTE | 2016-12-29 14:15 | NUR ---
Social Work Note: Continued Discharge Planning Data& Assessment: Per MD pt is not medically ready for discharge at this time. Pt remains on the vent. DIPAK met with pt at bedside to check in and assess for any unmet needs. SW provided phone number on white board. Pt also provided with DPOA/Advance Directive paperwork to review and complete when she medically improves. Pt expressed a lot of concern regarding potential DME needs for pt at time of discharge. DIPAK and RN explained that pt will be assessed by PT when appropriate for any DME needs when she is appropriate to work with PT. Pt was provided with a DME list for him to review so he is able to get a better idea of the options for companies in the area. Pt denies any other needs at this time. SW to continue to follow. Plan: Pt remains on the vent. Pt denies any other needs at this time. SW to continue to follow for pt medical progression and any discharge planning needs. SONIA Levi Addendum: 12/29/16 at 1517 by SOY FRANCO Per pt family request, DIPAK faxed script for Prasugrel to preferred pharmacy ([facility] (F:[phone]) to run for coverage. DIPAK requested callback with cost. DIPAK to continue to follow. SONIA Levi Addendum: 01/02/17 at 1702 by NEELAM FRANCO DIRECTOR OF CASEWORK received return phone call stating Lexi copay is $15.00.
--- NOTE | 2016-12-29 14:45 | NUR ---
NUTRITION FOLLOW UP: ASSESS: 66 YO F admitted after elective cardiac catheterization which required intubation. Second catheterization was cancelled. Pt remains intubated with possibility of being extubated today or tomorrow. PST completed and no cuff leak was found and there is a possibility of throat swelling. Pt now NPO x5 days. 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 DIET: NPO. LABS: Reviewed. K 3.3, Cr <0.30, Ca 8.0 MEDICATIONS: Reviewed. Lasix, Fentanyl, Propofol GI: No BM reported. SKIN: No issues reported. ANTHROPOMETRICS: Current Wt: 71 kg, BMI: 25.3 kg/m2. IBW: 59.1 kg (113.4% IBW) ESTIMATED NEEDS (COPD, VENT): Calories: 9559-4945 kcal (25-30 kcal/kg BW) Protein: 101-121 g protein (1.5-1.8 g/kg BW) Fluid: Approx. 1675 mL (25 mL/kg BW) NUTRITION DIAGNOSIS: 1) Inadequate oral intake related to inability to consume sufficient energy, as evidenced by NPO / vent status.---PERSISTS INTERVENTION: 1) If pt unable to extubate tomorrow, recommend initiate enteral feeding of Pulmocare at 10 ml/hr x 24 hr. Once tolerance established, recommend advance 5 ml every 4 hr. to goal rate 55 ml/hr. In addition, recommend adding 1 packet ProSource three times per day. Flush dose 40 ml H2O every 4 hr. Enteral feeding at goal would provide 1815 kcal, 109 g protein (76 g from formula + 33 g from ProSource), sufficient to meet 100% nutrient needs. 2) Adjust goal rate daily based on Propofol rate. MONITOR/EVALUATE: NPO/vent status, POC, labs, GI/nutrition status. Follow per high nutrition risk guidelines.
--- NOTE | 2016-12-29 15:53 | PCM.PNMED ---
Subjective Date of Service Dec 29, 2016 Subjective 66-year-old woman with coronary artery disease presents with acute hypercarbic respiratory failure in setting of elective percutaneous cardiac intervention She remains intubated due to tracheal swelling. Tolerated pressure support trial well today. Her anxiety was manageable with light sedation during pressure support. Exam Vital Signs Vital Sign - Last Date Time Temp Pulse Resp B/P Pulse Ox O2 Delivery O2 Flow Rate FiO2 12/29/16 12:45 36.8 94 14 146/61 96 Mechanical Ventilator 35 12/24/16 08:51 4.00 Intake and Output 12/28/16 12/28/16 12/29/16 Cumulative From/Thru 15:00 23:00 07:00 12/24/16 08:51 - 12/29/16 05:04 Intake Total 2203 ml 1120 ml 41307 ml Output Total 1000 ml 450 ml 9725 ml Balance 1203 ml 670 ml 4468 ml Intake Oral 140 ml IV Total 2123 ml 1120 ml 02137 ml Tube Irrigant 80 ml 80 ml Output Urine Total 550 ml 350 ml 8175 ml Gastric Drainage Total 450 ml 100 ml 1550 ml # Bowel Movements 0 Exam General: Intubated, responds to verbal stem, uncomfortable with the ventilator but no other acute distress HEENT: sclerae anicteric, Neck: no JVD Chest: Generally clear to auscultation, no wheezing Cardiac: S1S2, no murmur Abdomen: BS normal, non-tender Extremities: No peripheral edema Neuro: Alert and moving all extremities when sedation is lightened, cranial nerves symmetric IVs and Medications Medications Reviewed: Medications were reviewed in detail Lab and Diagnostics Result Diagram: 12/29/16 0500 12/29/16 1423 X-Rays, CTs and MRIs PROCEDURE: X-RAY CHEST ONE VIEW, PORTABLE ([id number]) INDICATIONS: TUBE PLACEMENT TECHNIQUE: One view of the chest was acquired. COMPARISON: [facility], CR, XR CHEST 1VW (PORTABLE), 12/24/2016, 9: 44. FINDINGS: Surgical changes and devices: Endotracheal tube is present approximately 3.2 cm superior to the aftab. Lungs and pleura: No pleural effusions or pneumothorax. Lungs are clear. Mediastinum: Mediastinal contours appear normal. Heart size is normal. Bones and chest wall: No suspicious bony lesions. Overlying soft tissues appear unremarkable. IMPRESSION: Interval endotracheal tube as above. Remaining exam is stable. Dictated by: Maria Ines Smith M.D. on 12/24/2016 at 14:10 Approved by: Maria Ines Smith M.D. on 12/24/2016 at 14:11 Cardiac Echo Impressions Echocardiogram Report Name: MARYJANE WEBER Study Date: 12/24/2016 Height: 66 in Hospital Exam Location: [facility] Weight: 147 lb Gender: Other BSA: 1.8 m2 : 1950 Age: 66 yrs BP: 91/65 mmHg Reason For Study: POST PROCEDURE Ordering Physician: Performed By: Vinicio Reeder Interpretation Summary Limited study due to supine position during image acquisition. 1.The estimated ejeciton fraction is 35-40%. Multisegment wall motion abnormalities are seen. Elevated E/e suggest elevated left atrial filling pressures. 2. Mild to moderately reduced systolic function. 3. Mild mitral regurgitation. 4. IVC is not plethoric. 5. No prior study is available for comparison. Additional Diagnostics Cardiac catheterization 12/24/16 IMPRESSION: 1. Two-vessel coronary artery disease. 2. Proximal left anterior descending 70% to 80% stenosis, complex lesion with a high-grade ostial diagonal branch arising from the area of stenosis. 3. Two tandem lesions noted in the mid and distal right coronary artery. 4. Mature semv-qy-gfcuz collaterals. 5. Post stress ejection fraction of 40% to 45% with 1 to 2+ mitral regurgitationKorin Wilson 12/27/2016 PROCEDURE NOTE--CARDIAC CATHETERIZATION LABORATORY: DATE OF PROCEDURE: Tuesday, December 27, 2016. SHALLOT PACKER: lR Torres MD PROCEDURES: 1. Percutaneous coronary intervention (PCI)-Xience resolute drug-eluting stents (PEDRITO) of proximal and mid right coronary artery: a. Mid RCA-Xience 2.25 x 18 mm. b. Proximal RCA-resolute. c. Proximal RCA-resolut 2.5 x 18 mm. Kymberly Torres . 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 Wilson. Patient was extremely anxious and was given some Ativan. She became quite somnolent and soon thereafter became easily arousable. Patient underwent coronary artery catheterization was found to have 2 lesions in tandem in her right coronary artery and an approximately 90% proximal LAD lesion. A blood gas revealed a CO2 that was over 150. Patient was promptly intubated and placed on the ventilator. The percutaneous intervention for the LAD lesion in the tandem RCA lesions was aborted. PCI was subsequently completed on 12/27 and 12/28. Attempt at extubation unsuccessful on 12/29 due to poor cuff leak. # Acute on chronic respiratory failure. Patient intubated with FiO2 0.25, PEEP 5. Dexamethasone initiated 12/29 in light of poor cuff leak. - Continue dexamethasone -Plan to attempt pressure support trial and extubation in a.m. on 12/30. # Ischemic cardiomyopathy with acute on chronic systolic congestive heart failure.She has a proximal LAD lesion of 90% and 2 in tandem RCA lesions. Patient's ejection fraction is 35-40%. - Started on aspirin, carvedilol - Continue prasugrel for PEDRITO placement - Initiate ARB when taking oral # Anxiety. Patient is very reactive with hypertension and tachycardia when sedation is removed. # Hypertension - Continue nitroglycerin drip for blood pressure control - Beta vinay initiated on 12/09, carvedilol - Patient takes losartan 50 mg daily and furosemide 40 mg daily as outpatient. Disposition: Anticipate extubation tomorrow. GI Prophylaxis: H2 vinay VTE Prophylaxis: Other (patient has received numerous doses of heparin IV) VTE Mechanical Devices: Intermittant Pneumatic CD Resuscitation Status: CPR: Attempt Resuscitation Time spent 40 minutes in patient assessment in care coordination including review of data with consultants Severo Swenson MD Dec 29, 2016 15:53
[2016-12-29] MEDS: fentaNYL 2,500 mCg/250 mL 2,500 MCG in IV Premix 1 EACH IV SCH (16:27)
[2016-12-29] MEDS: Dexamethasone Inj 6 MG in 0.9% Sodium Chloride-Pha MIX 50 ML IV SCH ×2 (16:30→20:21)
[2016-12-29] MEDS: Nitroglycerin 50 mg/250 mL D5W Premix IV SCH (20:06)
[2016-12-30] VITALS (14 sets, daily range): BP systolic 134–173; BP diastolic 57–89; PULSE 63–118; RESP 10–24; O2SAT 93–98
[2016-12-30] MEDS: Albuterol-Ipratropium 3 mL Inhalation Solution NEB SCH ×6 (00:05→21:10)
[2016-12-30] MEDS: Propofol Inj 1,000,000 MCG in IV Premix 1 EACH IV SCH ×2 (00:58→05:48)
[2016-12-30] MEDS: Heparin 5,000 Unit/mL Inj SUBQ SCH ×3 (00:58→16:57)
[2016-12-30] MEDS: Dexamethasone Inj 6 MG in 0.9% Sodium Chloride-Pha MIX 50 ML IV SCH ×2 (01:52→08:06)
--- NOTE | 2016-12-30 06:19 | NUR ---
Cuff leak/Mentation/Hemodynamics RT stated patient has good cuff leak around ET tube this AM, Patient anxious at times, elevated BP when sedation titrated down, weaning sedation this AM and patient doing well so far except BP 180's/70, plan to restart nitro gtt, patient nodding yes and no and following all commands, 100ml brown fluid out OGT, no BM this shift, good urine output this shift total of 825ml output, uneventful shift, at bedside this AM for support, patient calm and resting at this time,no distress noted, will continue to monitor. Addendum: 12/30/16 at 0623 by EDD VAZQUEZ RN Amended: Links added. Addendum: 12/30/16 at 0641 by EDD VAZQUEZ RN Cuff pressure reading 138/72 and A-line not correlating with A-line pressures of 170/70, will pass on info to day shift to notify MD to see if cardiology would like nitro gtt restarted.
[2016-12-30] MEDS: MethylprednisoLONE Sodium Succinate 40 mg/mL Inj IVPUSH SCH (08:07)
[2016-12-30] MEDS: Pantoprazole 4 mg/mL 10 mL Inj IVPUSH SCH ×2 (08:07→19:42)
[2016-12-30] MEDS: Chlorhexidine 0.12% 15 mL Oral Solution MT SCH ×2 (08:08→19:31)
--- NOTE | 2016-12-30 12:25 | PROG NOTE ---
[address] [address] PROGRESS NOTE PATIENT: MARYJANE WEBER : 1950 MR#: [id number] ADMIT: 12/24/2016 JOB ID: [id number] DATE: 12/30/2016 PULMONARY CRITICAL CARE FOLLOWUP NOTE: PROBLEM LIST: 1. Acute ventilatory failure. 2. COPD by history. 3. Coronary artery disease status post stenting. 4. Anxiety. SUBJECTIVE: Patient breathing comfortably. Been on pressure support for a while this morning, maybe close to an hour. Anxious to have the tube out. Trying to convey some information but unable to read her writing or understand exactly what she is trying to say. Nursing and family at the bedside trying to interpret her requests. OBJECTIVE: Temperature 37.7, pulse 89, respiratory rate 16, blood pressure 157/62. O2 sat on FiO2 of 40%, PEEP of 5, is 95%. I and O shows 1.8 liters in, 1 liter out. General appearance: Awake, alert. Trying to write and mouth her wishes. Chest: Fairly good breath sounds. Anterolateral lung stuart are clear. Heart: Regular rhythm. Heart tones normal. Abdomen: Soft. Bowel tones present. The patient has considerable cuff leak. ASSESSMENT: The patient did about 4 hours of pressure support initially at 10/5 subsequently and 5/5 yesterday and currently is doing well with pressure support 5/5. I feel we can extubate her. Will extubate her to a cool mist as she had some airway swelling. PLAN: 1. Extubate to cool mist. 2. Discontinue Decadron.
--- NOTE | 2016-12-30 12:30 | PROG NOTE ---
[address] [address] PROGRESS NOTE PATIENT: MARYJANE WEBER : 1950 MR#: [id number] ADMIT: 12/24/2016 JOB ID: [id number] DATE: 12/30/2016 PROBLEM LIST: 1. Status post respiratory failure, on ventilator. 2. Coronary artery disease. 3. Hypertension. 4. Anxiety disorder. 5. Status post angioplasty to the LAD, status post angioplasty to the right coronary artery. 6. History of tobacco abuse. SUBJECTIVE: The patient continues to be intubated. She was awake and appeared to be resting comfortably. OBJECTIVE: Blood pressure is 157/62, pulse was 89, respirations are 16. She is, of course, on a ventilator. SpO2 is 95%. FiO2 40. Lungs were clear to auscultation. Heart sounds revealed normal S1 and S2, without murmurs, clicks, or rubs. There was no peripheral edema. LABORATORY: White blood count 8.3, hemoglobin 10.8, hematocrit 34.3, platelet count 146. Potassium 4.3. ASSESSMENT AND PLAN: 1. The patient will probably be extubated today per the recommendation of Dr. Grey. 2. Gradually up-titrate losartan and Coreg. 3. Recommend spironolactone as she is fluid overloaded, which may act both as an antihypertensive agent as well as address her underlying ischemic cardiomyopathy. REGULO
--- NOTE | 2016-12-30 17:00 | NUR ---
EXTUBATION/RESPIRATORY Spontaneous breathing trial started at 0815, w/ 40% FiO2 and 5/5 support. Patient tolerated for approximately 90 minutes, and cuff leak present. Orders received from Dr. Grey to extubate patient. Supplies gathered, and RT extubated patient at 0932 to 6L O2 via mask w/ cool mist. She tolerated this well throughout most of shift, SpO2 maintained at 97%, so switched to humidified air via OxyMask at 4L. Patient currently maintaining SpO2 above 95%. Will continue to monitor.
--- NOTE | 2016-12-30 19:14 | PCM.PNMED ---
Subjective Date of Service Dec 30, 2016 Subjective 66-year-old woman with coronary artery disease presents with acute hypercarbic respiratory failure in setting of elective percutaneous cardiac intervention Extubated today. She states her breathing feels at baseline. Feels a bit weak but otherwise well. Exam Vital Signs Vital Sign - Last Date Time Temp Pulse Resp B/P Pulse Ox O2 Delivery O2 Flow Rate FiO2 12/30/16 16:45 Supplement Oxygen 12/30/16 16:45 37.0 90 12 164/82 96 4.00 12/30/16 12:30 28 Intake and Output 12/29/16 12/29/16 12/30/16 Cumulative From/Thru 15:00 23:00 07:00 12/24/16 08:51 - 12/30/16 06:04 Intake Total 722 ml 610 ml 73689 ml Output Total 550 ml 725 ml 74555 ml Balance 172 ml -115 ml 4525 ml Intake Oral 140 ml IV Total 622 ml 610 ml 84714 ml Tube Irrigant 100 ml 0 ml 180 ml Output Urine Total 550 ml 625 ml 9350 ml Gastric Drainage Total 100 ml 1650 ml # Bowel Movements 0 Exam General: Middle-aged woman wearing oxygen but in no acute distress HEENT: sclerae anicteric, mucosa is moist Neck: Supple no adenopathy Chest: Generally clear to auscultation, no wheezing, sounds coarse Cardiac: S1S2, no murmur Abdomen: BS normal, non-tender Extremities: No peripheral edema Neuro: Alert and moving all extremities, cranial nerves symmetric IVs and Medications Medications Reviewed: Medications were reviewed in detail Lab and Diagnostics Result Diagram: 12/29/16 0500 12/30/16 1128 X-Rays, CTs and MRIs PROCEDURE: X-RAY CHEST ONE VIEW, PORTABLE ([id number]) INDICATIONS: TUBE PLACEMENT TECHNIQUE: One view of the chest was acquired. COMPARISON: [facility], CR, XR CHEST 1VW (PORTABLE), 12/24/2016, 9: 44. FINDINGS: Surgical changes and devices: Endotracheal tube is present approximately 3.2 cm superior to the aftab. Lungs and pleura: No pleural effusions or pneumothorax. Lungs are clear. Mediastinum: Mediastinal contours appear normal. Heart size is normal. Bones and chest wall: No suspicious bony lesions. Overlying soft tissues appear unremarkable. IMPRESSION: Interval endotracheal tube as above. Remaining exam is stable. Dictated by: Maria Ines Smith, M.D. on 12/24/2016 at 14:10 Approved by: Maria Ines Smith M.D. on 12/24/2016 at 14:11 Cardiac Echo Impressions Echocardiogram Report Name: MARYJANE WEBER Study Date: 12/24/2016 Height: 66 in Hospital Exam Location: [facility] Weight: 147 lb Gender: Other BSA: 1.8 m2 : 1950 Age: 66 yrs BP: 91/65 mmHg Reason For Study: POST PROCEDURE Ordering Physician: Performed By: Vinicio Reeder Interpretation Summary Limited study due to supine position during image acquisition. 1.The estimated ejeciton fraction is 35-40%. Multisegment wall motion abnormalities are seen. Elevated E/e suggest elevated left atrial filling pressures. 2. Mild to moderately reduced systolic function. 3. Mild mitral regurgitation. 4. IVC is not plethoric. 5. No prior study is available for comparison. Additional Diagnostics Cardiac catheterization 12/24/16 IMPRESSION: 1. Two-vessel coronary artery disease. 2. Proximal left anterior descending 70% to 80% stenosis, complex lesion with a high-grade ostial diagonal branch arising from the area of stenosis. 3. Two tandem lesions noted in the mid and distal right coronary artery. 4. Mature gokf-dv-wzoid collaterals. 5. Post stress ejection fraction of 40% to 45% with 1 to 2+ mitral regurgitation. Harry Wilson 12/27/2016 PROCEDURE NOTE--CARDIAC CATHETERIZATION LABORATORY: DATE OF PROCEDURE: Tuesday, December 27, 2016. MORNING NEWS PRODUCER: Rl Torres MD PROCEDURES: 1. Percutaneous coronary intervention (PCI)-Xience resolute drug-eluting stents (PEDRITO) of proximal and mid right coronary artery: a. Mid RCA-Xience 2.25 x 18 mm. b. Proximal RCA-resolute. c. Proximal RCA-resolut 2.5 x 18 mm. Kymberly Torres . 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 Wilson. Patient was extremely anxious and was given some Ativan. She became quite somnolent and soon thereafter became easily arousable. Patient underwent coronary artery catheterization was found to have 2 lesions in tandem in her right coronary artery and an approximately 90% proximal LAD lesion. A blood gas revealed a CO2 that was over 150. Patient was promptly intubated and placed on the ventilator. The percutaneous intervention for the LAD lesion in the tandem RCA lesions was aborted. PCI was subsequently completed on 12/27 and 12/28. Attempt at extubation unsuccessful on 12/29 due to poor cuff leak. # Acute on chronic respiratory failure. Patient intubated with FiO2 0.25, PEEP 5. Dexamethasone initiated 12/29 in light of poor cuff leak. Extubated 12/30 successfully. - Oxygen support as needed # Ischemic cardiomyopathy with acute on chronic systolic congestive heart failure.She has a proximal LAD lesion of 90% and 2 in tandem RCA lesions. Patient's ejection fraction is 35-40%. - Started on aspirin, carvedilol - Continue prasugrel for PEDRITO placement - Initiate ARB - Titrate cardiac medications per medical delivery driver analytical consultant # Anxiety. Patient is very reactive with hypertension and tachycardia when sedation is removed. - Primary psychosocial intervention - Minimize benzodiazepine use # Hypertension - Beta vinay initiated on 12/09, carvedilol - Patient takes losartan 50 mg daily and furosemide 40 mg daily as outpatient. Disposition: Likely discharge home 1-2 days GI Prophylaxis: H2 vinay VTE Prophylaxis: Other (patient has received numerous doses of heparin IV) VTE Mechanical Devices: Intermittant Pneumatic CD Resuscitation Status: CPR: Attempt Resuscitation Time spent 35 minutes Severo Swenson MD Dec 30, 2016 19:14
[2016-12-30] MEDS: Nitroglycerin 50 mg/250 mL D5W Premix IV SCH (19:31)
[2016-12-30] MEDS: Sodium Chloride LOK Flush 10 mL Syringe IVFLUSH PRN ×3 (19:52)
[2016-12-31] VITALS (11 sets, daily range): BP systolic 147–170; BP diastolic 55–74; PULSE 80–106; RESP 15–28; O2SAT 94–100
[2016-12-31] MEDS: Heparin 5,000 Unit/mL Inj SUBQ SCH ×3 (00:11→16:30)
[2016-12-31 03:25] LABS: BASOPHILS % (AUTO) 0 % (0-3); EOSINOPHILS % (AUTO) 0.1 % (0-5); MONOCYTES % (AUTO) 15.7 % (4-12); Mean Corpuscular Hemoglobin 28.5 pg (27.0-35.0); Mean Corpuscular Volume 92.4 fL (81-100); NEUTROPHILS % (AUTO) 76.7 % (40-74); Platelet Count 215 bil/L (150-400)
--- NOTE | 2016-12-31 03:44 | NUR ---
Diet Pt remains NPO r/t coarse voice, weak cough. ST and PT evals pending for today. Pt to remain NPO until cleared by speech therapy. TELE: SR/ST 80-110 with increasing amount of PVCs throughout the night. AM labs pending including magnesium and phosphorus. Respiratory: Oxygen needs remain constant at 4L Oxymask with spo2 95-97%. 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 No Pain. No N/V/D. No SOB. No CP. Pt A&O and is able to appropriately express her needs.
[2016-12-31 04:06] LABS: Magnesium 2.1 mg/dL (1.6-2.6); Phosphorus 2.9 mg/dL (2.5-4.9)
[2016-12-31 04:43] LABS: APPEARANCE,URINE HAZY (CLEAR,HAZY); COLOR,URINE DARK YELLOW (YELLOW); OCCULT BLOOD,URINE LARGE (NEGATIVE); PH,URINE 5.5 (5.0-8.0); UROBILINOGEN,URINE NORMAL (NORMAL)
[2016-12-31] MEDS: Chlorhexidine 0.12% 15 mL Oral Solution MT SCH ×2 (07:03→19:38)
[2016-12-31] MEDS: Pantoprazole 4 mg/mL 10 mL Inj IVPUSH SCH ×2 (08:10→19:38)
[2016-12-31] MEDS: Albuterol-Ipratropium 3 mL Inhalation Solution NEB SCH ×4 (08:21→20:30)
--- NOTE | 2016-12-31 10:30 | NUR ---
Evaluation completed. Please go to "Notes" then click on "Assessments and Notes" (bottom left corner of screen). Then select appropriate discipline tab on top of screen.
--- NOTE | 2016-12-31 11:04 | DRSVH ---
PROCEDURE: X-RAY CHEST ONE VIEW, PORTABLE ([id number]) INDICATIONS: ventilatory failure TECHNIQUE: One view of the chest was acquired. COMPARISON: [facility], CR, XR CHEST 1VW (PORTABLE), 12/29/2016, 4:57. FINDINGS: Surgical changes and devices: Right IJ CVL redemonstrated tip projected over the mid superior vena ca va. Lungs and pleura: Edema has diminished as well as bibasilar airspace opacities which have not complet nestor resolved. Mediastinum: Mediastinal contours appear normal. Heart size is normal. Bones and chest wall: No suspicious bony lesions. Overlying soft tissues appear unremarkable. IMPRESSION: Resolving edema and/or pneumonia involving the lung bases. Dictated by: Howie Hassan RR Interpreted: Roberto De La Cruz MD on 12/31/2016 at 11:03 Transcribed by: MARKY on 12/31/2016 at 11:04 Approved by: Roberto De La Cruz M.D. on 12/31/2016 at 16:22
[2016-12-31] MEDS ORDERED: Fluticasone 100 mCg Inhaler INHALATION SCH (11:55)
[2016-12-31] MEDS ORDERED: Furosemide 10 mg/mL 2 mL Inj IVPUSH ONE (12:50)
--- NOTE | 2016-12-31 13:36 | PROG NOTE ---
[address] [address] PROGRESS NOTE PATIENT: MARYJANE WEBER : 1950 MR#: [id number] ADMIT: 12/24/2016 JOB ID: [id number] DATE: PROBLEM LIST: 1. Status post respiratory failure. Extubated yesterday. 2. Coronary artery disease, status post angioplasty to LAD, status post angioplasty of the right coronary artery. 3. Ischemic cardiomyopathy, EF of 35% to 40%. 4. Hypertension. 5. COPD. CURRENT MEDICATIONS: 1. Losartan 25 mg b.i.d. 2. Prasugrel Grilled 10 daily. 3. Albuterol inhaler every 4 hours. 4. Protonix 40 mg IV push. 5. Spironolactone 25 mg daily. 6. Carvedilol 6.25 mg b.i.d. 7. Aspirin 81 mg daily. 8. Nitroglycerin p.r.n. INTERVAL HISTORY: Patient was extubated yesterday, and since then, has been stable and has maintained good oxygen on face mask of 4 L/minute. She is alert, oriented, appears lethargic and tired, though answered all my questions appropriately and looking forward to feeling better. She complained of hoarseness of voice and difficulty swallowing. The speech evaluation is pending for this morning. Her vital signs: Blood pressure is 170/64, oxygen saturation 96%, 4 L on face mask, and heart rate of 106 beats per minute. Chest: Air entry is fair and equal on both sides with crackles heard, occasional wheezing. S1-S2 is normal. Regular. No murmurs were heard. Abdomen is soft, benign, nontender. There is mild ankle edema noted bilaterally. Neurologically, she is grossly intact. CLINICAL ISSUES: 1. Coronary artery disease. Patient is on dual anti-platelet therapy. 2. Aspirin 81 mg and Prasugrel 10 mg daily. Advised to continue with prasugrel one year. The prescriptions have been written. 3. Hypertension. Her blood pressure is high. Although we are trying to titrate her dose, the patient has not had her morning dose due to her inability to swallow. she is awaiting evaluation from Speech Therapy. 4. Ischemic cardiomyopathy. Patient was started on losartan, Coreg, and Aldactone. I would like to gradually up-titrate the dose because the fluid status of the patient is not quite clear at this point. 5. COPD. Patient is getting bronchodilator therapy and saturating well on 4 L of face mask. RECOMMENDATIONS: 1. Speech evaluation. 2. Followup up-titration of her losartan to 50 mg twice daily. 3. Continue with Aldactone. 4. Repeat labs, CBC, BMP and BNP for tomorrow morning.
--- NOTE | 2016-12-31 14:55 | PROG NOTE ---
[address] [address] PROGRESS NOTE PATIENT: MARYJANE WEBER : 1950 MR#: [id number] ADMIT: 12/24/2016 JOB ID: [id number] DATE: 12/31/2016 PULMONARY FOLLOWUP NOTE: The patient is a 66-year-old woman with prior smoking history, admitted with acute on chronic hypoxic hypercarbic respiratory failure following elective cardiac catheterization for ischemic heart disease. Chest x-ray shows hyperinflation and some pulmonary vascular congestion. ASSESSMENT AND RECOMMENDATIONS: 1. Acute on chronic hypoxic respiratory failure. 2. Suspected chronic obstructive pulmonary disease. 3. Coronary artery disease, status post stent in the right coronary artery and left anterior descending. 4. Suspected pulmonary edema. RECOMMENDATIONS: This 66-year-old woman with prior 25-30 pack-year smoking history. Quit smoking about three years ago and according to her , has often had saturations in the 70s at home. She is on Symbicort and a nebulizer at home but has not used any oxygen. It appears that she has had undiagnosed lung disease for a long time, most likely severe emphysema and COPD based on her chest x-ray and degree of hypoxemia that is chronic. I think she needs to be sent home with oxygen but based on her longstanding orthopnea, etc. and severity of her symptoms, I think she needs a Trilogy noninvasive ventilator for daytime and nocturnal use. The patient remains at risk of life-threatening respiratory episodes, and using a ventilator would prevent these episodes. I do not think CPAP or BiPAP would be adequate for her condition. Please consider a short course of corticosteroids to see if she is actually having severe hypoxia from an exacerbation. I am going to prescribe the Trilogy, so that she has it available by the time she leaves the hospital. She would also need to be qualified for home oxygen, and she can continue her current inhalers. I do think she would also benefit from going to pulmonary rehab after she recovers from this acute illness. Her current inhaler regimen of Symbicort and DuoNeb seems adequate for now. She has spirometry ordered which hopefully will be done today or Tuesday at the most for assessment of the severely of her lung disease. REGULO
--- NOTE | 2016-12-31 15:34 | PCM.PNMED ---
Subjective Date of Service Dec 31, 2016 Subjective 66-year-old woman with coronary artery disease presents with acute hypercarbic respiratory failure in setting of elective percutaneous cardiac intervention Extubated yesterday. She appears to be labored but states her breathing feels at baseline. confirms that her breathing is at baseline. Clinical impression is much more severe COPD than previously appreciated. She has some inspiratory constriction without stridor, edematous pharynx per swallow evaluation. She remains nothing by mouth, receiving only essential small tablet medications. She has not ambulated. Exam Vital Signs Vital Sign - Last Date Time Temp Pulse Resp B/P Pulse Ox O2 Delivery O2 Flow Rate FiO2 12/31/16 12:04 95 20 94 OxyMask 4.00 12/31/16 08:03 37.2 170/64 12/30/16 12:30 28 Intake and Output 12/30/16 12/30/16 12/31/16 Cumulative From/Thru 15:00 23:00 07:00 12/24/16 08:51 - 12/31/16 05:13 Intake Total 815 ml 103 ml 64358 ml Output Total 650 ml 400 ml 64349 ml Balance 165 ml -297 ml 4393 ml Intake Oral 0 ml 140 ml IV Total 815 ml 103 ml 18957 ml Tube Irrigant 180 ml Output Urine Total 650 ml 400 ml 47856 ml Gastric Drainage Total 1650 ml # Bowel Movements 0 0 0 Exam General: Middle-aged woman wearing with moderately labored breathing HEENT: sclerae anicteric, mucosa is moist Neck: Supple no adenopathy Chest: Generally clear to auscultation, no wheezing, sounds coarse Cardiac: S1S2, no murmur Abdomen: BS normal, non-tender Extremities: No peripheral edema Neuro: Alert and moving all extremities, cranial nerves symmetric IVs and Medications Medications Reviewed: Medications were reviewed in detail Lab and Diagnostics Result Diagram: 12/31/1631412/31/16314 X-Rays, CTs and MRIs PROCEDURE: X-RAY CHEST ONE VIEW, PORTABLE ([id number]) INDICATIONS: TUBE PLACEMENT TECHNIQUE: One view of the chest was acquired. COMPARISON: [facility], CR, XR CHEST 1VW (PORTABLE), 12/24/2016, 9: 44. FINDINGS: Surgical changes and devices: Endotracheal tube is present approximately 3.2 cm superior to the aftab. Lungs and pleura: No pleural effusions or pneumothorax. Lungs are clear. Mediastinum: Mediastinal contours appear normal. Heart size is normal. Bones and chest wall: No suspicious bony lesions. Overlying soft tissues appear unremarkable. IMPRESSION: Interval endotracheal tube as above. Remaining exam is stable. Dictated by: Maria Ines Smith M.D. on 12/24/2016 at 14:10 Approved by: Maria Ines Smith M.D. on 12/24/2016 at 14:11 Cardiac Echo Impressions Echocardiogram Report Name: MARYJANE WEBER Study Date: 12/24/2016 Height: 66 in Hospital Exam Location: [facility] Weight: 147 lb Gender: Other BSA: 1.8 m2 : 1950 Age: 66 yrs BP: 91/65 mmHg Reason For Study: POST PROCEDURE Ordering Physician: Performed By: Vinicio Reeder Interpretation Summary Limited study due to supine position during image acquisition. 1.The estimated ejeciton fraction is 35-40%. Multisegment wall motion abnormalities are seen. Elevated E/e suggest elevated left atrial filling pressures. 2. Mild to moderately reduced systolic function. 3. Mild mitral regurgitation. 4. IVC is not plethoric. 5. No prior study is available for comparison. Additional Diagnostics Cardiac catheterization 12/24/16 IMPRESSION: 1. Two-vessel coronary artery disease. 2. Proximal left anterior descending 70% to 80% stenosis, complex lesion with a high-grade ostial diagonal branch arising from the area of stenosis. 3. Two tandem lesions noted in the mid and distal right coronary artery. 4. Mature fhka-rs-xihci collaterals. 5. Post stress ejection fraction of 40% to 45% with 1 to 2+ mitral regurgitation. Harry Wilson 12/27/2016 PROCEDURE NOTE--CARDIAC CATHETERIZATION LABORATORY: DATE OF PROCEDURE: Tuesday, December 27, 2016. PUNCHBOARD ASSEMBLER: Rl Torres MD PROCEDURES: 1. Percutaneous coronary intervention (PCI)-Xience resolute drug-eluting stents (PEDRITO) of proximal and mid right coronary artery: a. Mid RCA-Xience 2.25 x 18 mm. b. Proximal RCA-resolute. c. Proximal RCA-resolut 2.5 x 18 mm. Kymberly Torres . 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 Wilson. Patient was extremely anxious and was given some Ativan. She became quite somnolent and soon thereafter became easily arousable. Patient underwent coronary artery catheterization was found to have 2 lesions in tandem in her right coronary artery and an approximately 90% proximal LAD lesion. A blood gas revealed a CO2 that was over 150. Patient was promptly intubated and placed on the ventilator. The percutaneous intervention for the LAD lesion in the tandem RCA lesions was aborted. PCI was subsequently completed on 12/27 and 12/28. Extubated on 12/30, after delayed due to inadequate cuff leak.. # Acute on chronic respiratory failure with hypoxia. Continues to require 4 L O2. Continues to demonstrate labored breathing. Probably severe COPD. No evidence of active pulmonary edema, but weight is increased 7 kg from admission. Possibly mild extrathoracic airway obstruction due to pharyngeal swelling - Inhaled bronchodilators and inhaled glucocorticoid - Oxygen support as needed - Bedside spirometry - Lasix therapy with goal of -2 L per day diuresis until at baseline weight - Pulmonology analytics consultant to advise on chronic interventions: Pulmonary rehabilitation, possibly home bilevel pressure support ventilation # Ischemic cardiomyopathy with acute on chronic systolic congestive heart failure.She has a proximal LAD lesion of 90% and 2 in tandem RCA lesions. Patient's ejection fraction is 35-40%. - Started on aspirin, carvedilol, prasugrel for PEDRITO placement. - Losartan and spironolactone - Titrate cardiac medications per Dr. Wilson # Anxiety. Patient is very reactive with hypertension and tachycardia when sedation is removed. - Primary psychosocial intervention - Minimize benzodiazepine use # Hypertension, acute on chronic, poorly controlled. Very reactive to anxiety and stimulation. - Beta vinay initiated on 12/09, carvedilol - Patient takes losartan 50 mg daily and furosemide 40 mg daily as outpatient. Disposition: Likely discharge home 1-2 days GI Prophylaxis: H2 vinay VTE Prophylaxis: Other (patient has received numerous doses of heparin IV) VTE Mechanical Devices: Intermittant Pneumatic CD Resuscitation Status: CPR: Attempt Resuscitation Time spent 40 minutes Severo Swenson MD Dec 31, 2016 15:34
--- NOTE | 2016-12-31 16:00 | NUR ---
Evaluation completed. Please go to "Notes" then click on "Assessments and Notes" (bottom left corner of screen). Then select appropriate discipline tab on top of screen.
--- NOTE | 2016-12-31 17:01 | NUR ---
Social Work: Continued Discharge Planning D: Pt is currently on day 7 of stay for trouble breathing. Pt was extubated on 12/30. Pt was able to work with PT today and has a decrease in level of functioning. They are recommending SNF versus inpatient rehab for the patient. FIRST FRONT VENTILATOR also received information for Flores Fernandez from [employer] stating pulmonology has requested a Trilogy machine for the pt at discharge. She is coordinating with the pt's insurance however will likely not be able to get this authorized over the weekend. FIRST FRONT VENTILATOR met with pt and spouse at bedside to review recommendations. FIRST FRONT VENTILATOR reviewed SNF and Inpatient Rehab options. Pt and spouse state they would prefer for the pt to stay local and would like to purse SNF placement at [facility] and [facility] as a second option. FIRST FRONT VENTILATOR provided referrals to both facilities for review. Pt will require authorization from [employer] for SNF stay which would not be possible over the weekend. A: Pt who is from [facility] with her spouse. P: Evolving; Anticipate pt to discharge to Skilled Rehab pending [employer] Authorization; [facility] and [facility] are reviewing. FIRST FRONT VENTILATOR to continue to follow. SONIA Noel
[2016-12-31] MEDS: Budesonide 0.5 mg/2 mL Inhalation Solution NEB SCH ×2 (18:00→20:30)
--- NOTE | 2016-12-31 18:05 | NUR ---
DOWNGRADE TO PCC Patient stable throughout NOC shift, order received to downgrade to PCC status. Vitals and tele remain stable, currently on 4L oxymask, no change to respiratory status. Swallow eval completed, patient allowed ice chips occasionally, and meds in applesauce if absolutely necessary. Patient is tolerating this well. She worked with PT today, requires 1PA to chair and back to bed, but states she's feeling closer to baseline every day. OT eval recommended by Colleen w/ PT. Order obtained from Dr. Swenson. Will continue to monitor vitals and respiratory status.
[2016-12-31] MEDS: Nitroglycerin 50 mg/250 mL D5W Premix IV SCH (19:20)
[2016-12-31] MEDS: Sodium Chloride LOK Flush 10 mL Syringe IVFLUSH PRN ×3 (19:38)
[2017-01-01] VITALS (14 sets, daily range): BP systolic 99–163; BP diastolic 39–77; PULSE 67–93; RESP 15–18; O2SAT 95–99
[2017-01-01] MEDS: Heparin 5,000 Unit/mL Inj SUBQ SCH ×4 (00:52→23:37)
[2017-01-01 04:33] LABS: Mean Corpuscular Hemoglobin 28.3 pg (27.0-35.0); Mean Corpuscular Volume 90.7 fL (81-100)
--- NOTE | 2017-01-01 07:54 | PROG NOTE ---
[address] [address] PROGRESS NOTE PATIENT: MARYJANE WEBER : 1950 MR#: [id number] ADMIT: 12/24/2016 JOB ID: [id number] DATE: 01/01/2017 PROBLEM LIST: 1. Status post respiratory failure. 2. Coronary artery disease status post angioplasty to the left anterior descending, status post angioplasty to the right coronary artery. 3. Ischemic cardiomyopathy with an EF of 35%-40%. 4. Hypertension. 5. COPD. CURRENT MEDICATIONS: 1. Losartan 25 mg b.i.d. 2. Prasugrel 10 mg daily. 3. Albuterol inhaler every 4 hours. 4. Protonix 40 mg IV push. 5. Spironolactone 25 mg daily. 6. Carvedilol 6.25 mg twice a day. 7. Aspirin 81 mg daily. 8. Nitroglycerin 0.4 mg sublingually as needed. The patient was extubated two days ago and seems to be doing fine. She was asleep when I saw her in her room this morning, but easily aroused. Blood pressure is 160/77, respirations 15, pulse rate is 87. SpO2 on nasal cannula is 99%. Auscultation of the lungs revealed that the lungs are clear. Auscultation of the heart reveals normal S1, S2 without murmurs, clicks or rubs. Abdomen is soft and nontender. There is no peripheral edema. LABORATORIES: White blood count 9.0, hemoglobin 13.4, hematocrit 43.0, platelet count is 179. Sodium 142, potassium 4.5. Chloride is 101, carbon dioxide 30. BUN is 15, creatinine 0.30. Calcium 8.6. BNP is 3630. CLINICAL ISSUES: 1. Coronary artery disease. The patient is on dual platelet therapy with aspirin 81 mg and prasugrel 10 mg daily. We advised that she continue her prasugrel for one year. The prescriptions have been written. 2. Hypertension. Her blood pressure continues to be high although we are trying to titrate the dose of losartan to bring it down 3. Ischemic cardiomyopathy. The patient has been started on losartan, Coreg and Aldactone. Dr. Wilson points out that he would like to up titrate the dose of those meds. because the fluid status of the patient is not clear at this point she will continue Aldactone. 4. COPD. The patient is getting bronchodilator therapy and saturating well at 4 L of oxygen by nasal cannula. MTDD
[2017-01-01] MEDS: Albuterol-Ipratropium 3 mL Inhalation Solution NEB SCH ×4 (07:56→20:37)
[2017-01-01] MEDS: Budesonide 0.5 mg/2 mL Inhalation Solution NEB SCH ×2 (07:56→20:37)
[2017-01-01] MEDS: Chlorhexidine 0.12% 15 mL Oral Solution MT SCH ×2 (10:07→20:25)
[2017-01-01] MEDS: Pantoprazole 4 mg/mL 10 mL Inj IVPUSH SCH ×2 (10:07→20:24)
[2017-01-01] MEDS ORDERED: Furosemide 10 mg/mL 2 mL Inj IVPUSH SCH (10:35)
--- NOTE | 2017-01-01 11:06 | NUR ---
NUTRITION FOLLOW-UP: ASSESS: 66 YO F admitted following elective cardiac catheterization which required intubation. Second catheterization was cancelled. Pt successfully extubated 12/30. Diet advanced today to stimulation texture with honey thick liquids. PO intake not yet recorded. Of note, patient has been NPO x 8 days and is significantly malnourished. In the event diet unable to be advanced beyond stimulation texture over the weekend, strongly recommend consideration of enteral feeding. 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 DIET: Stimulation, honey thick liquids. LABS: Reviewed. CO2 30, Cr < 0.30, BNP 3630. MEDICATIONS: Reviewed. Lasix. GI: NNo BM reported since admit x 8 D. SKIN: No issues reported. ANTHROPOMETRICS: Current Wt: 73.9 kg, BMI: 26.0 kg/m2. Admit weight: 67 kg. IBW: 59.1 kg (113.4% IBW) ESTIMATED NEEDS (COPD, CCU): Calories: 7307-5237 kcal (25-30 kcal/kg BW) Protein: 101-121 g protein (1.5-1.8 g/kg BW) Fluid: Approx. 1675 mL (25 mL/kg BW) NUTRITION DIAGNOSIS: 1) Inadequate oral intake related to inability to consume sufficient energy, as evidenced by NPO / vent status - IMPROVED WITH EXTUBATION AND SLIGHT DIET ADVANCE. INTERVENTION: 1) As mentioned, in the event diet unable to be advanced over the weekend, strongly recommend initiation of enteral feeding as follows. Recommend initiate Pulmocare at 10 ml/hr x 24 hr. Once tolerance established, recommend advance 5 ml every 4 hr. to goal rate 55 ml/hr. In addition, recommend adding 1 packet ProSource three times per day. Flush dose 40 ml H2O every 4 hr. Enteral feeding at goal would provide 1815 kcal, 109 g protein (76 g from formula + 33 g from ProSource), sufficient to meet 100% nutrient needs. 2)Will add dysphagia appropriate supplements to trays. MONITOR/EVALUATE: Diet advance, PO intake, POC, labs, GI/nutrition status. Follow per high nutrition risk guidelines.
--- NOTE | 2017-01-01 18:44 | PCM.PNMED ---
Subjective Date of Service Jan 01, 2017 Subjective 66-year-old woman with coronary artery disease presents with acute hypercarbic respiratory failure in setting of elective percutaneous cardiac intervention States her breathing feels at baseline. Clinical impression is much more severe COPD than previously appreciated. She remains nothing by mouth, receiving only essential small tablet medications. She has not ambulated. Exam Vital Signs Vital Sign - Last Date Time Temp Pulse Resp B/P Pulse Ox O2 Delivery O2 Flow Rate FiO2 01/01/17 17:15 Supplement Oxygen 01/01/17 17:15 116/50 01/01/17 16:28 74 01/01/17 16:26 36.8 16 97 4.00 12/30/16 12:30 28 Intake and Output 12/31/16 12/31/16 01/01/17 Cumulative From/Thru 14:59 22:59 06:59 12/24/16 08:51 - 01/01/17 05:07 Intake Total 140 ml 0 ml 45460 ml Output Total 4500 ml 1000 ml 60987 ml Balance -4360 ml -1000 ml -967 ml Intake Oral 50 ml 0 ml 190 ml IV Total 90 ml 77703 ml Tube Irrigant 180 ml Output Urine Total 4500 ml 1000 ml 92410 ml Gastric Drainage Total 1650 ml # Bowel Movements 0 0 0 Exam General: Middle-aged woman mildly labored breathing HEENT: sclerae anicteric, mucosa is moist Neck: Supple no adenopathy Chest: Generally clear to auscultation, no wheezing, prolonged expiration phase Cardiac: S1S2, no murmur Abdomen: BS normal, non-tender Extremities: No peripheral edema Neuro: Alert, but with limited heart content, cranial nerves symmetric IVs and Medications Medications Reviewed: Medications were reviewed in detail Lab and Diagnostics Result Diagram: 01/01/17 0400 01/01/17 0400 X-Rays, CTs and MRIs PROCEDURE: X-RAY CHEST ONE VIEW, PORTABLE ([id number]) INDICATIONS: TUBE PLACEMENT TECHNIQUE: One view of the chest was acquired. COMPARISON: [facility], CR, XR CHEST 1VW (PORTABLE), 12/24/2016, 9: 44. FINDINGS: Surgical changes and devices: Endotracheal tube is present approximately 3.2 cm superior to the aftab. Lungs and pleura: No pleural effusions or pneumothorax. Lungs are clear. Mediastinum: Mediastinal contours appear normal. Heart size is normal. Bones and chest wall: No suspicious bony lesions. Overlying soft tissues appear unremarkable. IMPRESSION: Interval endotracheal tube as above. Remaining exam is stable. Dictated by: Maria Ines Smith M.D. on 12/24/2016 at 14:10 Approved by: Maria Ines Smith M.D. on 12/24/2016 at 14:11 Cardiac Echo Impressions Echocardiogram Report Name: MARYJANE WEBER Study Date: 12/24/2016 Height: 66 in Hospital Exam Location: [facility] Weight: 147 lb Gender: Other BSA: 1.8 m2 : 1950 Age: 66 yrs BP: 91/65 mmHg Reason For Study: POST PROCEDURE Ordering Physician: Performed By: Vinicio Reeder Interpretation Summary Limited study due to supine position during image acquisition. 1.The estimated ejeciton fraction is 35-40%. Multisegment wall motion abnormalities are seen. Elevated E/e suggest elevated left atrial filling pressures. 2. Mild to moderately reduced systolic function. 3. Mild mitral regurgitation. 4. IVC is not plethoric. 5. No prior study is available for comparison. Additional Diagnostics Cardiac catheterization 12/24/16 IMPRESSION: 1. Two-vessel coronary artery disease. 2. Proximal left anterior descending 70% to 80% stenosis, complex lesion with a high-grade ostial diagonal branch arising from the area of stenosis. 3. Two tandem lesions noted in the mid and distal right coronary artery. 4. Mature iust-ev-kurxn collaterals. 5. Post stress ejection fraction of 40% to 45% with 1 to 2+ mitral regurgitation. Harry Wilson 12/27/2016 PROCEDURE NOTE--CARDIAC CATHETERIZATION LABORATORY: DATE OF PROCEDURE: Tuesday, December 27, 2016. GLOVE PRESSER: Rl Torres MD PROCEDURES: 1. Percutaneous coronary intervention (PCI)-Xience resolute drug-eluting stents (PEDRITO) of proximal and mid right coronary artery: a. Mid RCA-Xience 2.25 x 18 mm. b. Proximal RCA-resolute. c. Proximal RCA-resolut 2.5 x 18 mm. Kymberly Torres . 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 Wilson. Patient was extremely anxious and was given some Ativan. She became quite somnolent and soon thereafter became easily arousable. Patient underwent coronary artery catheterization was found to have 2 lesions in tandem in her right coronary artery and an approximately 90% proximal LAD lesion. A blood gas revealed a CO2 that was over 150. Patient was promptly intubated and placed on the ventilator. The percutaneous intervention for the LAD lesion in the tandem RCA lesions was aborted. PCI was subsequently completed on 12/27 and 12/28. Extubated on 12/30, after delayed due to inadequate cuff leak.. # Acute on chronic respiratory failure with hypoxia. Continues to require 4 L O2. Continues to demonstrate labored breathing. Probably severe COPD. No evidence of active pulmonary edema, but weight is increased 7 kg from admission. Limited response to Lasix so far. - Inhaled bronchodilators and inhaled glucocorticoid; no systemic glucocorticoid - Oxygen support as needed - Bedside spirometry - Increase Lasix therapy with goal of -2 L per day diuresis until at baseline weight - Pulmonology continuous improvement consultant to advise on chronic interventions: Pulmonary rehabilitation, possibly home bilevel pressure support ventilation # Ischemic cardiomyopathy with acute on chronic systolic congestive heart failure.She has a proximal LAD lesion of 90% and 2 in tandem RCA lesions. Patient's ejection fraction is 35-40%.Started on aspirin, carvedilol, prasugrel for PEDRITO placement. Initially unable to take by mouth meds. Not taking meds with blood pressure systolic ranged 99-116 - Carvedilol 12.5 mg twice a day - Losartan 100 mg daily; reduce to 50 mg in light of relative hypotension today - Spironolactone 25 mg daily - Prasugrel 10 mg daily - Titrate cardiac medications per Dr. Wilson # Oropharyngeal dysfunction, acute. Speech evaluation on 12/30 indicated poor pharyngeal function. This seems to be improving. - Continue to advance diet - Switched to all oral medications # Anxiety. Patient is very reactive with hypertension and tachycardia when sedation is removed. - Primary psychosocial intervention - Minimize benzodiazepine use # Hypertension, acute on chronic, poorly controlled. Very reactive to anxiety and stimulation. - Carvedilol initiated on 12/09, - Patient takes losartan 50 mg daily and furosemide 40 mg daily as outpatient. Disposition: Likely discharge home 1-2 days GI Prophylaxis: H2 vinay VTE Prophylaxis: Other (patient has received numerous doses of heparin IV) VTE Mechanical Devices: Intermittant Pneumatic CD Resuscitation Status: CPR: Attempt Resuscitation Time spent 35 minutes Severo Swenson MD Jan 01, 2017 18:44
--- NOTE | 2017-01-01 18:57 | NUR ---
activity/bowels Pt. has been sitting in a high fowlers position and tolerating it well. Very alert, following commands well. Visiting with family members. Sating in the high 90s on 4L per NC. Tele reading SR 70-90s with occasional PVCs per electrical power station technician. Pt. has not had any recorded bms since admit. Administered 2 senna po this shift. Pt. denies any pain or discomfort; bilateral groin sites intact. Care continues.
[2017-01-01] MEDS: Nitroglycerin 50 mg/250 mL D5W Premix IV SCH (19:19)
[2017-01-02] VITALS (14 sets, daily range): BP systolic 140–198; BP diastolic 53–78; PULSE 67–94; RESP 18–22; O2SAT 94–100
--- NOTE | 2017-01-02 04:47 | NUR ---
Mentation/ Respiratory Pt a/ox3- forgetful at times, speech noted to be somewhat delayed. [place]- Pt encouraged to q2 turn. WC consult ordered for Bruise noted on Right hip and some sacral redness Start of shift of on 4 L NC. Sp02 high 90s- 02 titrated down overnight- Pt currently on 1 L NC- sp02 mid 90s.
[2017-01-02] MEDS: Albuterol-Ipratropium 3 mL Inhalation Solution NEB SCH ×4 (07:33→21:16)
[2017-01-02] MEDS: Budesonide 0.5 mg/2 mL Inhalation Solution NEB SCH ×2 (07:33→21:24)
[2017-01-02] MEDS: Chlorhexidine 0.12% 15 mL Oral Solution MT SCH ×2 (08:18→19:50)
[2017-01-02] MEDS: Pantoprazole 4 mg/mL 10 mL Inj IVPUSH SCH ×2 (08:48→19:43)
[2017-01-02] MEDS: Heparin 5,000 Unit/mL Inj SUBQ SCH ×3 (08:48→23:31)
[2017-01-02] MEDS: Furosemide 10 mg/mL 2 mL Inj IVPUSH SCH (08:49)
--- NOTE | 2017-01-02 13:10 | PROG NOTE ---
[address] [address] PROGRESS NOTE PATIENT: MARYJANE WEBER : 1950 MR#: [id number] ADMIT: 12/24/2016 JOB ID: [id number] DATE: PROBLEM LIST: 1. Status post respiratory failure. 2. Coronary artery disease, status post angioplasty to the left anterior descending, status post angioplasty to the right coronary artery. 3. Ischemic cardiomyopathy with an EF of 35% to 40%. 4. Hypertension. 5. COPD. CURRENT MEDICATIONS: 1. Losartan 25 mg b.i.d. 2. Prasugrel 10 mg daily. 3. Albuterol inhaler every 4 hours. 4. Protonix 40 mg IV push. 5. Spironolactone 25 mg daily. 6. Carvedilol 6.25 mg b.i.d. 7. Aspirin 81 mg daily. 8. Sublingual nitroglycerin 0.4 mg as needed. When I evaluated the patient today, she was alert. She seemed lethargic but was able to answer all questions. Blood pressure was 179/78, pulse 85, respirations 16. SpO2 is 100% on nasal cannula. EKG revealed normal sinus rhythm. Auscultation of the lungs revealed that the lungs were clear. Auscultation of heart revealed normal S1 and S2 without murmurs, clicks, or rubs. Abdomen was soft and nontender. There was no peripheral edema. ASSESSMENT AND PLAN: 1. Coronary artery disease. The patient is on dual platelet therapy with 81 mg of aspirin and prasugrel 10 mg daily. We advise that she continue the prasugrel for one year. Prescriptions have been written. 2. Hypertension. Blood pressure continues to be high. I increased her losartan from 50 mg a day to 100 mg a day. 3. Ischemic cardiomyopathy. The patient has been started on losartan, Coreg, and Aldactone. Dr. Wilson points out that he would like to up-titrate those doses in order to put her on optimal medical therapy in the long run. 4. Chronic obstructive pulmonary disease. The patient is getting bronchodilator therapy and she is saturating well on 4 L of oxygen by nasal cannula. [facility]
--- NOTE | 2017-01-02 16:55 | NUR ---
Social Work: Continued Discharge Planning D: Pt discussed in am rounds. Pt is not medically stable for discharge at this time. Pt continues to require hospitalization. Continued PT recommendation is for SNF as pt is not ambulating at her baseline and only able to ambulate 2 feet with FWW. BRUSHER OPERATOR discussed recommendations with who states pt should not require SNF at discharge and would like to pursue a home with HH discharge. MD signed F2F and is in folder. BRUSHER OPERATOR attempted to meet with pt at bedside to discuss discharge planning and options in regards to discharge (HH versus SNF). Pt is currently working with PT and BRUSHER OPERATOR unable to meet with pt at this time. BRUSHER OPERATOR spoke with Flores Fernandez with [facility] about pt's Trilogy. They are awaiting several RT tests to be completed and authorization from pt's insurance before this can be delivered. A: Pt who was previously I at baseline P: Evolving; BRUSHER OPERATOR to follow up with pt and spouse about discharge options; per PT notes, pt is skillable for SNF if pt and family feel that this is necessary. BRUSHER OPERATOR to continue to follow. SONIA Noel
--- NOTE | 2017-01-02 17:07 | PCM.PNMED ---
Subjective Date of Service Jan 02, 2017 Subjective 66-year-old woman with coronary artery disease presents with acute hypercarbic respiratory failure in setting of elective percutaneous cardiac intervention. Clinical impression is much more severe COPD than previously appreciated, possibly with chronic hypoxic encephalopathy. States her breathing feels at baseline. She is initiated feeding without difficulty. She has not ambulated significantly, but is working with PT. Exam Vital Signs Vital Sign - Last Date Time Temp Pulse Resp B/P Pulse Ox O2 Delivery O2 Flow Rate FiO2 01/02/17 12:00 68 20 97 Nasal Cannula 4.00 01/02/17 08:00 36.8 179/78 12/30/16 12:30 28 Intake and Output 01/01/17 01/01/17 01/02/17 Cumulative From/Thru 15:00 23:00 07:00 12/24/16 08:51 - 01/02/17 06:39 Intake Total 90 ml 90 ml 81108 ml Output Total 1200 ml 550 ml 69761 ml Balance -1110 ml -460 ml -2537 ml Intake Oral 90 ml 90 ml 370 ml IV Total 62424 ml Tube Irrigant 180 ml Output Urine Total 1200 ml 550 ml 37215 ml Gastric Drainage Total 1650 ml # Bowel Movements 0 Exam General: Middle-aged woman believed breathing comfortably with very mild retractions HEENT: sclerae anicteric, mucosa is moist Neck: Supple no adenopathy Chest: Generally clear to auscultation, no wheezing, prolonged expiration phase Cardiac: S1S2, no murmur Abdomen: BS normal, non-tender Extremities: No peripheral edema Neuro: Alert, making jokes today, cranial nerves symmetric, coordination normal , strength diminished 4/5 IVs and Medications Medications Reviewed: Medications were reviewed in detail Lab and Diagnostics Result Diagram: 01/01/1739901/01/17399 X-Rays, CTs and MRIs PROCEDURE: X-RAY CHEST ONE VIEW, PORTABLE ([id number]) INDICATIONS: TUBE PLACEMENT TECHNIQUE: One view of the chest was acquired. COMPARISON: [facility], CR, XR CHEST 1VW (PORTABLE), 12/24/2016, 9: 44. FINDINGS: Surgical changes and devices: Endotracheal tube is present approximately 3.2 cm superior to the aftab. Lungs and pleura: No pleural effusions or pneumothorax. Lungs are clear. Mediastinum: Mediastinal contours appear normal. Heart size is normal. Bones and chest wall: No suspicious bony lesions. Overlying soft tissues appear unremarkable. IMPRESSION: Interval endotracheal tube as above. Remaining exam is stable. Dictated by: Maria Ines Smith M.D. on 12/24/2016 at 14:10 Approved by: Maria Ines Smith M.D. on 12/24/2016 at 14:11 Cardiac Echo Impressions Echocardiogram Report Name: MARYJANE WEBER Study Date: 12/24/2016 Height: 66 in Hospital Exam Location: [facility] Weight: 147 lb Gender: Other BSA: 1.8 m2 : 1950 Age: 66 yrs BP: 91/65 mmHg Reason For Study: POST PROCEDURE Ordering Physician: Performed By: Vinicio Reeder Interpretation Summary Limited study due to supine position during image acquisition. 1.The estimated ejeciton fraction is 35-40%. Multisegment wall motion abnormalities are seen. Elevated E/e suggest elevated left atrial filling pressures. 2. Mild to moderately reduced systolic function. 3. Mild mitral regurgitation. 4. IVC is not plethoric. 5. No prior study is available for comparison. Additional Diagnostics Cardiac catheterization 12/24/16 IMPRESSION: 1. Two-vessel coronary artery disease. 2. Proximal left anterior descending 70% to 80% stenosis, complex lesion with a high-grade ostial diagonal branch arising from the area of stenosis. 3. Two tandem lesions noted in the mid and distal right coronary artery. 4. Mature irnu-hy-dvpxy collaterals. 5. Post stress ejection fraction of 40% to 45% with 1 to 2+ mitral regurgitationKorin Wilson 12/27/2016 PROCEDURE NOTE--CARDIAC CATHETERIZATION LABORATORY: DATE OF PROCEDURE: Tuesday, December 27, 2016. LABORATORY ASST: Rl Torres MD PROCEDURES: 1. Percutaneous coronary intervention (PCI)-Xience resolute drug-eluting stents (PEDRITO) of proximal and mid right coronary artery: a. Mid RCA-Xience 2.25 x 18 mm. b. Proximal RCA-resolute. c. Proximal RCA-resolut 2.5 x 18 mm. Kymberly Torres . 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 Wilson. Patient was extremely anxious and was given some Ativan. She became quite somnolent and soon thereafter became easily arousable. Patient underwent coronary artery catheterization was found to have 2 lesions in tandem in her right coronary artery and an approximately 90% proximal LAD lesion. A blood gas revealed a CO2 that was over 150. Patient was promptly intubated and placed on the ventilator. The percutaneous intervention for the LAD lesion in the tandem RCA lesions was aborted. PCI was subsequently completed on 12/27 and 12/28. Extubated on 12/30, after delayed due to inadequate cuff leak.. # Acute on chronic respiratory failure with hypoxia. Continues to require 4 L O2. Continues to demonstrate labored breathing. Probably severe COPD. clinical picture does not suggest active pulmonary edema, but weight is increased 4 kg from admission. Limited response to Lasix. - Inhaled bronchodilators and inhaled glucocorticoid; no systemic glucocorticoid - Oxygen support as needed - Continue Lasix - A Trilogy device has been ordered and will be required at the time of discharge - ABG, spirometry and home O2 assessment ordered - Plan to discharge home with home health and physical therapy when Trilogy device is available # Ischemic cardiomyopathy with acute on chronic systolic congestive heart failure.She has a proximal LAD lesion of 90% and 2 in tandem RCA lesions. Patient's ejection fraction is 35-40%.Started on aspirin, carvedilol, prasugrel for PEDRITO placement. Initially unable to take by mouth meds. Not taking meds with blood pressure systolic ranged 99-116 - Carvedilol 12.5 mg twice a day - Losartan 100 mg daily; reduce to 50 mg in light of relative hypotension on , now with recurrent hypertension; resume losartan 100 mg daily - Spironolactone 25 mg daily - Prasugrel 10 mg daily - Titrate cardiac medications per Dr. Wilson # Oropharyngeal dysfunction, acute. Speech evaluation on 12/30 indicated poor pharyngeal function. This seems to be improving. - Continue to advance diet - Switched to all oral medications # Anxiety. Patient is very reactive with hypertension and tachycardia when sedation is removed. - Primary psychosocial intervention - Minimize benzodiazepine use # Hypertension, acute on chronic, poorly controlled. Very reactive to anxiety and stimulation. - Carvedilol initiated on 12/09, titrate upward - Patient takes losartan 100 mg daily and furosemide 40 mg daily as outpatient. Disposition: Likely discharge home 1-2 days GI Prophylaxis: H2 vinay VTE Prophylaxis: Other (patient has received numerous doses of heparin IV) VTE Mechanical Devices: Intermittant Pneumatic CD Resuscitation Status: CPR: Attempt Resuscitation Time spent 35 minutes Severo Swenson MD Jan 02, 2017 17:07
[2017-01-02] MEDS: Nitroglycerin 50 mg/250 mL D5W Premix IV SCH (19:50)
--- NOTE | 2017-01-02 23:38 | NUR ---
HTN / Effexor Patient hypertensive, SBP 190s. Patient has no s/s of HTN. HS meds given, no improvement. MD notified. Orders received for a Losartan dose which is administered. SBP 140s-[address] Wilson called and updated on BP, gives guideline to keep SBP less than 160, gives okay to call PA or night hospitalist with further BP questions tonight. MD updated that patient has not yet been restarted on her Effexor and a family member was stating their concern. MD aware. Will discuss in rounds. Note left on whiteboard as a reminder. Will pass on in RN shift report. Effexor present in med rec.
[2017-01-03] VITALS (14 sets, daily range): BP systolic 149–191; BP diastolic 59–105; PULSE 69–104; RESP 18–24; O2SAT 89–99
[2017-01-03] MEDS ORDERED: Potassium Chloride Oral 20 mEq SR Tab(K 3 - 3.7 & Creat < 2) PO ONE (05:15)
--- NOTE | 2017-01-03 05:42 | ABG ---
DateTimeAnalyzed 05:34:00 -_ pH ____7.268 - 7.350 7.450 pCO2 ___97.3__ -mmHg 35.0 45.0 pO2 116 -mmHg 69.0 116 HCO3- ___43.0__ -mmol/L 22.0 26.0 ABE ___11.9__ -mmol/L -2.0 2.0 tHb ___13.5__ -g/dL O2Hb ___96.1__ -% COHb ____1.2__ -% MetHb ____0.9__ -% sO2 ___98.2__ -% FIO2 ___34.0__ -% Drawn By blf - Date/Time Notified____ 05:42:00 -_ Spontaneous_RR ___18.0__ -b/min Liter_Flow ____4.0__ -L/min Oxygen Device 1 __CANNULA - Notified By CF - Notified Whom ___DR. FUIMOANO - B 751 -mmHg tO2 ___18.5__ -Vol% Thad test _Positive -
[2017-01-03] MEDS: Budesonide 0.5 mg/2 mL Inhalation Solution NEB SCH ×2 (07:36→20:30)
[2017-01-03] MEDS: Albuterol-Ipratropium 3 mL Inhalation Solution NEB SCH ×4 (07:36→19:50)
[2017-01-03 08:29] LABS: BASOPHILS % (AUTO) 0.1 % (0-3); EOSINOPHILS % (AUTO) 2.6 % (0-5); Mean Corpuscular Hemoglobin 28.1 pg (27.0-35.0); Mean Corpuscular Volume 95.6 fL (81-100); NEUTROPHILS % (AUTO) 66.5 % (40-74); Platelet Count 179 bil/L (150-400)
[2017-01-03] MEDS: Heparin 5,000 Unit/mL Inj SUBQ SCH ×3 (09:54→23:29)
[2017-01-03] MEDS: Pantoprazole 4 mg/mL 10 mL Inj IVPUSH SCH ×2 (09:54→21:20)
[2017-01-03] MEDS: Chlorhexidine 0.12% 15 mL Oral Solution MT SCH ×2 (09:54→21:27)
[2017-01-03] MEDS: Furosemide 10 mg/mL 2 mL Inj IVPUSH SCH (09:54)
--- NOTE | 2017-01-03 11:06 | PROG NOTE ---
[address] [address] PROGRESS NOTE PATIENT: MARYJANE WEBER : 1950 MR#: [id number] ADMIT: 12/24/2016 JOB ID: [id number] PULMONARY CRITICAL CARE PROGRESS NOTE: DATE: 01/03/2017 SUBJECTIVE: The patient is a 66-year-old woman with prior significant smoking history, admitted with acute on chronic hypoxic hypercarbic respiratory failure following elective cardiac catheterization for ischemic heart disease. INTERVAL HISTORY: I did not see her over the weekend but she has been relatively stable reportedly. She still has some shortness of breath, cough, but no worse than before. Denies chest pain, fevers, chills. REVIEW OF SYSTEMS: As above. PHYSICAL EXAMINATION: Vital signs reviewed. Temperature 36.3, pulse 83, respirations 24, BP 190/50, sats 98% on 4 L nasal cannula. General: Lethargic-appearing but answering questions appropriately. Chest: Clear to auscultation. LABORATORIES: Reviewed and notable for sodium up to 147 on her chemistries. Also, arterial blood gas done this morning is abnormal showing pH of 7.26, pCO2 of 97, pO2 of 116, and bicarb of 43. No chest x-ray since December 31. ASSESSMENT AND RECOMMENDATIONS: 1. Acute on chronic hypoxic hypercarbic respiratory failure. 2. Suspected chronic obstructive pulmonary disease. 3. Coronary artery disease, status post stents in the right coronary artery and left anterior descending, suspected pulmonary edema. 4. Likely chronic obstructive pulmonary disease exacerbation. This 66-year-old woman with prior 30+ pack year smoking history quit smoking about three years ago, and was having problems with chronic hypoxemia that was untreated. She presented for an elective cardiac cath and decompensated with sedation requiring mechanical ventilation. Her blood gas currently shows worsening hypercarbia and I think she needs to be on positive pressure ventilation with BiPAP. Will start this now and recheck a blood gas in an hour or so. I am also going to start her on prednisone 40 mg p.o. daily. This is to treat any underlying COPD exacerbation. We will also will continue DuoNeb q.4 h. as well. Her Trilogy is being arranged for, for home use, but I do not think she is stable enough to be discharged in her current state. She does appear to have some inhalers at home which seem to include Symbicort and DuoNeb based on my prior conversation with her and her , and I think these should be adequate, but she does need outpatient pulmonary followup as I said before. CRITICAL CARE TIME: 30 minutes.
[2017-01-03] MEDS: Polyethylene Glycol (PEG) 17 Gm Powder PO PRN (11:55)
--- NOTE | 2017-01-03 12:11 | NUR ---
Wound Care Pressure ulcer protocol received, pt opal at bedside. 66 yo female on O2 by KATHY, has a low airloss mattress under her. Bony prominences were inspected, no pressure related skin issues noted today. Small bruise at right hip covered with mepilex, mepilex at sacrum removed but no open areas are noted. Recommend shield wipes at backside.
--- NOTE | 2017-01-03 12:46 | NUR ---
NUTRITION FOLLOW-UP ASSESS: 66 YO F admitted following elective cardiac catheterization which required intubation. Second catheterization was cancelled. Pt successfully extubated 12/30. Per notes, pt experiencing hypoxic respiratory failure w/ possible chronic hypoxic encephalopathy. Diet continues to advance per recommendations w/ supplements added to all trays. PO is fair at 50-75% of meals. Of note, patient was NPO x 8 days. No BM since admission. Per rounds, MD will start stool softeners. 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 DIET: Dysphagia Mechanical w/ NTL for 1st meal per ST, monitoring closely for tolerance - Gelatein, Magic Cups and HT Ensure all trays. PO 50-75% LABS: Na 147, CO2 42, Nurse Quality 0.29, Gluc 116, Yea-[id number]-Ijmwfczhiqp Peptide 3630 MEDICATIONS: Reviewed. Lasix, Spirinolactone, Senna, Miralax GI: No BM reported since admit x 10 days. SKIN: George 18 Redness noted on bilateral heels and sacrum. No PU per WC. ANTHROPOMETRICS: Current Wt: 62.2 kg BMI: 22.1 kg/m2 Admit weight: 67 kg (BMI: 23.8 kg) IBW: 59.1 kg ESTIMATED NEEDS (Recalculated 01/03/17): Calories: 3481-1374 kcal/day (25-30 kcal/kg Admit BW) Protein: 65-80 g/day (1-1.2 g/kg BW) Fluid: Approx. 4722-6876 ml (25-30 ml/kg Admit BW) NUTRITION DIAGNOSIS: 1) Inadequate oral intake related to inability to consume sufficient energy, as evidenced by NPO / vent status - IMPROVED WITH EXTUBATION, DIET ADVANCEMENT, and PO INTAKE 50-75%. INTERVENTION: 1) Reduce amount of supplements d/t increased PO intake. Continue sending NT Ensure and Magic Cups TID to ensure adequate protein and calorie intake. 2) Continue to monitor diet advancement per ST recommendations. MONITOR/EVALUATE: Diet advancement/tolerance, PO intake, GI, POC, labs, nutrition status. Follow per moderate nutrition risk guidelines. Addendum: 01/03/17 at [address] Student documentation reviewed and I agree with above note. NICOLAS.
--- NOTE | 2017-01-03 13:19 | ABG ---
DateTimeAnalyzed 13:14:00 -_ pH ____7.471 - 7.350 7.450 pCO2 ___59.1__ -mmHg 35.0 45.0 pO2 ___51.1__ -mmHg 69.0 116 HCO3- ___42.6__ -mmol/L 22.0 26.0 ABE ___15.7__ -mmol/L -2.0 2.0 tHb ___14.1__ -g/dL O2Hb ___88.9__ -% COHb ____1.6__ -% MetHb ____0.8__ -% sO2 ___91.1__ -% FIO2 ___40.0__ -% Drawn By MT - Date/Time Notified____ 13:18:00 -_ Notified By MT - Notified Whom ___Parimi - B 748 -mmHg tO2 ___17.6__ -Vol% Thad test _Positive -
--- NOTE | 2017-01-03 13:52 | PCM.PNMED ---
Subjective Date of Service Jan 03, 2017 Subjective 66-year-old woman with coronary artery disease presents with acute hypercarbic respiratory failure in setting of elective percutaneous cardiac intervention. Clinical impression is much more severe COPD than previously appreciated, possibly with chronic hypoxic encephalopathy. 01/03 - Hypertensive overnight - received losartan with improv. hadn't had home regimen of effexor restarted - denies cp/n/v - awaiting trilogy unit, working wiht PT, lethargic this AM during interview - ABG ordered with worsening hypercarbia - will start BiPP per pulm along with steroids - no dc today given mental and resp status Exam Vital Signs Vital Sign - Last Date Time Temp Pulse Resp B/P Pulse Ox O2 Delivery O2 Flow Rate FiO2 01/03/17 06:18 20 97 4.00 01/03/17 03:19 36.6 82 Nasal Cannula 12/30/16 12:30 28 Intake and Output 01/02/17 01/02/17 01/03/17 Cumulative From/Thru 15:00 23:00 07:00 12/24/16 08:51 - 01/03/17 06:14 Intake Total 540 ml 290 ml 82248 ml Output Total 1150 ml 750 ml 89467 ml Balance -610 ml -460 ml -3607 ml Intake Oral 540 ml 290 ml 1200 ml IV Total 65655 ml Tube Irrigant 180 ml Output Urine Total 1150 ml 750 ml 24476 ml Gastric Drainage Total 1650 ml # Bowel Movements 0 Exam General: Middle-aged woman believed breathing comfortably with very mild retractions HEENT: sclerae anicteric, mucosa is moist Neck: Supple no adenopathy Chest: Generally clear to auscultation, no wheezing, prolonged expiration phase Cardiac: S1S2, no murmur Abdomen: BS normal, non-tender Extremities: No peripheral edema Neuro: cranial nerves symmetric, coordination normal, strength diminished 4/5 IVs and Medications Medications Reviewed: Medications were reviewed in detail Lab and Diagnostics Result Diagram: 01/01/17 0400 01/03/17 0343 X-Rays, CTs and MRIs PROCEDURE: X-RAY CHEST ONE VIEW, PORTABLE ([id number]) INDICATIONS: TUBE PLACEMENT TECHNIQUE: One view of the chest was acquired. COMPARISON: [facility], CR, XR CHEST 1VW (PORTABLE), 12/24/2016, 9: 44. FINDINGS: Surgical changes and devices: Endotracheal tube is present approximately 3.2 cm superior to the aftab. Lungs and pleura: No pleural effusions or pneumothorax. Lungs are clear. Mediastinum: Mediastinal contours appear normal. Heart size is normal. Bones and chest wall: No suspicious bony lesions. Overlying soft tissues appear unremarkable. IMPRESSION: Interval endotracheal tube as above. Remaining exam is stable. Dictated by: Maria Ines Smith M.D. on 12/24/2016 at 14:10 Approved by: Maria Ines Smith M.D. on 12/24/2016 at 14:11 Cardiac Echo Impressions Echocardiogram Report Name: MARYJANE WEBER Study Date: 12/24/2016 Height: 66 in Hospital Exam Location: [facility] Weight: 147 lb Gender: Other BSA: 1.8 m2 : 1950 Age: 66 yrs BP: 91/65 mmHg Reason For Study: POST PROCEDURE Ordering Physician: Performed By: Vinicio Reeder Interpretation Summary Limited study due to supine position during image acquisition. 1.The estimated ejeciton fraction is 35-40%. Multisegment wall motion abnormalities are seen. Elevated E/e suggest elevated left atrial filling pressures. 2. Mild to moderately reduced systolic function. 3. Mild mitral regurgitation. 4. IVC is not plethoric. 5. No prior study is available for comparison. Additional Diagnostics Cardiac catheterization 12/24/16 IMPRESSION: 1. Two-vessel coronary artery disease. 2. Proximal left anterior descending 70% to 80% stenosis, complex lesion with a high-grade ostial diagonal branch arising from the area of stenosis. 3. Two tandem lesions noted in the mid and distal right coronary artery. 4. Mature tvem-wu-enkrw collaterals. 5. Post stress ejection fraction of 40% to 45% with 1 to 2+ mitral regurgitation. Harry Wilson 12/27/2016 PROCEDURE NOTE--CARDIAC CATHETERIZATION LABORATORY: DATE OF PROCEDURE: Tuesday, December 27, 2016. ACCOUNTS PAYABLE SUPERVISOR: Rl Torres MD PROCEDURES: 1. Percutaneous coronary intervention (PCI)-Xience resolute drug-eluting stents (PEDRITO) of proximal and mid right coronary artery: a. Mid RCA-Xience 2.25 x 18 mm. b. Proximal RCA-resolute. c. Proximal RCA-resolut 2.5 x 18 mm. Kymberly Torres . 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 Wilson. Patient was extremely anxious and was given some Ativan. She became quite somnolent and soon thereafter became easily arousable. Patient underwent coronary artery catheterization was found to have 2 lesions in tandem in her right coronary artery and an approximately 90% proximal LAD lesion. A blood gas revealed a CO2 that was over 150. Patient was promptly intubated and placed on the ventilator. The percutaneous intervention for the LAD lesion in the tandem RCA lesions was aborted. PCI was subsequently completed on 12/27 and 12/28. Extubated on 12/30, after delayed due to inadequate cuff leak.. # Acute on chronic respiratory failure with hypoxia. Continues to require 4 L O2. Continues to demonstrate labored breathing. Probably severe COPD. clinical picture does not suggest active pulmonary edema, but weight is increased 4 kg from admission. Limited response to Lasix. - Inhaled bronchodilators and inhaled glucocorticoid; no systemic glucocorticoid - Oxygen support as needed--> inc to BiPAP per pulm - Start prednisone 40mg 01/03 - Continue Lasix - A Trilogy device has been ordered and will be required at the time of discharge - ABG, spirometry and home O2 assessment ordered - Plan to discharge home with home health and physical therapy when Trilogy device is available, posisbly in 1-2 d pending clinical improvement # Ischemic cardiomyopathy with acute on chronic systolic congestive heart failure.She has a proximal LAD lesion of 90% and 2 in tandem RCA lesions. Patient's ejection fraction is 35-40%.Started on aspirin, carvedilol, prasugrel for PEDRITO placement. Initially unable to take by mouth meds. Not taking meds with blood pressure systolic ranged 99-116--> now elev - Carvedilol 12.5 mg twice a day - Losartan 100 mg daily; reduce to 50 mg in light of relative hypotension on , now with recurrent hypertension; resume losartan 100 mg daily - Spironolactone 25 mg daily - Prasugrel 10 mg daily - Titrate cardiac medications per Dr. Wilson # Oropharyngeal dysfunction, acute. Speech evaluation on 12/30 indicated poor pharyngeal function. This seems to be improving. - Continue to advance diet - Switched to all oral medications # Anxiety. Patient is very reactive with hypertension and tachycardia when sedation is removed. - Primary psychosocial intervention - Minimize benzodiazepine use # Hypertension, acute on chronic, poorly controlled. Very reactive to anxiety and stimulation. - Carvedilol initiated on 12/09, titrate upward - Patient takes losartan 100 mg daily and furosemide 40 mg daily as outpatient. Disposition: Likely discharge home 1-2 days Pain Evaluation: Adequate Pain Control GI Prophylaxis: H2 vinay VTE Prophylaxis: Other (patient has received numerous doses of heparin IV) VTE Mechanical Devices: Intermittant Pneumatic CD Resuscitation Status: CPR: Attempt Resuscitation Time spent 35 minutes spent with eval and mgmt Sourav Vasquez DO Jan 03, 2017 07:41
[2017-01-03] MEDS: predniSONE 20 mg Tablet PO SCH (14:09)
--- NOTE | 2017-01-03 16:09 | NUR ---
Social Work Note: Continued Discharge Planning Data& Assessment: EMR reviewed. Pt has progressed with PT and has been cleared to go home with services. SW met with pt and pt at bedside to discuss discharge planning. Pt agreeable to PT and RN for vitals. Pt is in the process of obtaining a walker for pt. Pt declined any help with DME obtainment at this time. Pt agreeable to referral being sent to any agency that contracts with her insurance. SW confirmed with [facility], and [facility] that they either do not contract with [employer], pt insurance, or they do not go out to [place]. SW to continue [facility] to see which companies might contract with [employer] insurance and go out to [place]. Pt denies any other needs at this time. SW to continue to follow. Plan: Anticipated discharge home with home health pending accepting home health agency. Pt denies any other needs at this time. SW to continue to follow. SONIA Levi
--- NOTE | 2017-01-03 17:05 | NUR ---
Trilogy, No Bowel Movement Trilogy - She was quite drowsy this morning. Encouraged trilogy use when sleeping. ABG post trilogy use showed improvement. Per Dr. Lopez, the trilogy is to be used when napping during the day and sleeping at night. She does not like the mask as it is uncomfortable. Consulting with Respiratory Therapy to see if another mask can be used. No Bowel Movement - Per her , she has not had a bowel movement for at least 13 days. She attempted to have one this morning, but was unable to. Spoke with Dr. Vasquez about this and he ordered Miralax which was given. She has not had a bowel movement yet.
[2017-01-03] MEDS: Nitroglycerin 50 mg/250 mL D5W Premix IV SCH (20:30)
[2017-01-03] MEDS: Sodium Chloride LOK Flush 10 mL Syringe IVFLUSH PRN (21:20)
--- NOTE | 2017-01-03 23:01 | NUR ---
GI Pt up to the bathroom early this evening. Had a small BM Denies nausea. Denies abd pain. Tolerating her nectar thick liquids. Care ongoing
[2017-01-04] VITALS (10 sets, daily range): BP systolic 167–200; BP diastolic 94–111; PULSE 84–106; RESP 18–22; O2SAT 95–97
--- NOTE | 2017-01-04 01:17 | NUR ---
HTN Pt has elevated BP of 198/111 Reported BP to . Pt denies pain. Denies CANTU. Awaiting further orders. Addendum: 01/04/17 at 0122 by MAIK ELKINS RN I spoke with MD mojica HTN. He requested that the BP be taken again in one hour and report if elevated. Pt is currently asymptomatic
[2017-01-04] MEDS ORDERED: Nitroglycerin 2% 1 Gm Ointment TOPICAL ONE (03:25)
--- NOTE | 2017-01-04 04:16 | NUR ---
HTN Reported elevated BP to . NTP placed over 1/2 hr ago Will cont to monitor closely. No changes in orders at present
[2017-01-04] MEDS: Albuterol-Ipratropium 3 mL Inhalation Solution NEB SCH ×3 (07:34→16:10)
[2017-01-04] MEDS: Budesonide 0.5 mg/2 mL Inhalation Solution NEB SCH (07:34)
[2017-01-04] MEDS: Pantoprazole 4 mg/mL 10 mL Inj IVPUSH SCH (07:52)
[2017-01-04] MEDS: Furosemide 10 mg/mL 2 mL Inj IVPUSH SCH (07:52)
[2017-01-04] MEDS: predniSONE 20 mg Tablet PO SCH (07:54)
[2017-01-04] MEDS: Polyethylene Glycol (PEG) 17 Gm Powder PO PRN (07:55)
[2017-01-04] MEDS: Heparin 5,000 Unit/mL Inj SUBQ SCH (07:56)
[2017-01-04] MEDS: Chlorhexidine 0.12% 15 mL Oral Solution MT SCH (07:56)
--- NOTE | 2017-01-04 11:42 | NUR ---
Shingles Pt has 3 lesions on upper left buttock and lower back, one looking like a pustule, the others are just reddened areas. Pt's states she has history of shingles when she gets stressed and that the one area RN's have been monitoring for a few days but the other 2 areas are new. Md made aware and ordering shingles medication. Pt placed on contact and droplet isolation and will be moved to an airborne room [facility].
--- NOTE | 2017-01-04 14:37 | PCM.DIMED ---
Discharge Instructions Date of Service Jan 04, 2017 Dates of Hospitalization Dec 24, 2016 at 16:00 Discharge Diagnosis Discharge Diagnosis 1. Acute hypercarbic respiratory failure 2. COPD exacerbation 3. Acute systolic heart failure on chronic systolic heart failure (ischemic cardiomyopathy) 4. CAD with PCI and stenting x 2 to thr RCA (12/27) 5. Hypertension 6. New onset buttock shingles (recurrent) Diet Low fat, Low Sodium Activity Limited until seen by PCP Call your provider Shortness of breath, Chest pain Patient Instructions You will use oxygen 2 liters during the day and your trilogy machine at night until follow up. Follow-up Provider: Rocky Li DO Follow-up with PCP in: 1 week Thad Velez MD Jan 04, 2017 14:37
[2017-01-04] MEDS ORDERED: VALA500T2 PO (14:42)
[2017-01-04] MEDS ORDERED: ASPI81TA3 PO (14:42)
[2017-01-04] MEDS ORDERED: SPIR25TA PO (14:42)
[2017-01-04] MEDS ORDERED: CARV12.52 PO (14:42)
[2017-01-04] MEDS ORDERED: FURO40TA4 PO (14:42)
[2017-01-04] MEDS ORDERED: PRAS10TA5 PO (14:42)
[2017-01-04] MEDS ORDERED: LOSA100T3 PO (14:42)
[2017-01-04] MEDS ORDERED: NITR0.4T SL (14:42)
--- NOTE | 2017-01-04 16:07 | NUR ---
Social Work Note: Discharge Data& Assessment: Per , pt is medically ready for discharge. Mari Cruz is a 66 year old female admitted on 12/24/2016 for trouble breathing. Per pt is medically improved and ready for discharge. SW confirmed with [employer] that they have obtained insurance authorization and will be meeting pt in her home tonight to set up her trilogy machine. SW confirmed with [facility] that they contract with pt insurance and service the area pt lives in. Referral sent and accepted for RN and PT. [facility] is unable to see pt until on or after 01/11/2017, MD, pt, and pt all updated and agreeable to this start date. Pt explained that they prefer to rent a FWW from [facility] in [place] for $25 a month and is going to obtain the walker tonight. Pt transporting pt home tonight. Pt and pt deny any other needs. No other discharge needs identified. Plan: Per pt is medically improved and ready to discharge home via POV with Trilogy machine through [facility] being set up once at home and [facility] PT and RN to follow up on 01/11/2017. Pt transporting pt home tonight. Pt and pt deny any other needs. No other discharge needs identified. SONIA Levi
--- NOTE | 2017-01-04 17:16 | NUR ---
Discharge Pt left with at 1700. All belongings taken with. IV and tele removed. All discharge instructions gone over and understood, all questions answered. Pt left with O2 tank with instructions to call [employer] reps as she was leaving. New prescriptions given to and understands all changes in medications.
--- NOTE | 2017-01-04 18:53 | NUR ---
pts o2 sats at rest on room air are 86% with 4 liter she is 93 to 94 % she is currently unable to ambulate she additionally will need o2 bleed in for her home trilogy
--- NOTE | 2017-01-05 17:21 | PCM.DC.MED ---
Discharge Summary Date of Service Jan 04, 2017 Dates of Hospitalization Date of Hospital Admission Dec 24, 2016 at 16:00 Date of Discharge: Jan 04, 2017 Providers: Admitting Physician: Bertin Delgado MD Primary Care Physician: Rocky Li DO Attending Physician: Bertin Delgado MD Diagnosis at Time of Discharge Diagnosis at Time of Discharge 1. Acute hypercarbic respiratory failure 2. COPD exacerbation 3. Acute systolic heart failure on chronic systolic heart failure (ischemic cardiomyopathy) 4. CAD with PCI and stenting x 2 to thr RCA (12/27) 5. Hypertension 6. New onset buttock shingles (recurrent) Consultations Pulmonary Procedures XRay, CTs & MRIs PROCEDURE: X-RAY CHEST ONE VIEW, PORTABLE ([id number]) INDICATIONS: TUBE PLACEMENT TECHNIQUE: One view of the chest was acquired. COMPARISON: [facility], , XR CHEST 1VW (PORTABLE), 12/24/2016, 9: 44. FINDINGS: Surgical changes and devices: Endotracheal tube is present approximately 3.2 cm superior to the aftab. Lungs and pleura: No pleural effusions or pneumothorax. Lungs are clear. Mediastinum: Mediastinal contours appear normal. Heart size is normal. Bones and chest wall: No suspicious bony lesions. Overlying soft tissues appear unremarkable. IMPRESSION: Interval endotracheal tube as above. Remaining exam is stable. Dictated by: Maria Ines Smith M.D. on 12/24/2016 at 14:10 Approved by: Maria Ines Smith M.D. on 12/24/2016 at 14:11 Cardiac Echo Impression Echocardiogram Report Name: MARYJANE WEBER Study Date: 12/24/2016 Height: 66 in Hospital Exam Location: [facility] Weight: 147 lb Gender: Other BSA: 1.8 m2 : 1950 Age: 66 yrs BP: 91/65 mmHg Reason For Study: POST PROCEDURE Ordering Physician: Performed By: Vinicio Reeder Interpretation Summary Limited study due to supine position during image acquisition. 1.The estimated ejeciton fraction is 35-40%. Multisegment wall motion abnormalities are seen. Elevated E/e suggest elevated left atrial filling pressures. 2. Mild to moderately reduced systolic function. 3. Mild mitral regurgitation. 4. IVC is not plethoric. 5. No prior study is available for comparison. Other Diagnostics Cardiac catheterization 12/24/16 IMPRESSION: 1. Two-vessel coronary artery disease. 2. Proximal left anterior descending 70% to 80% stenosis, complex lesion with a high-grade ostial diagonal branch arising from the area of stenosis. 3. Two tandem lesions noted in the mid and distal right coronary artery. 4. Mature emjk-vo-cmlko collaterals. 5. Post stress ejection fraction of 40% to 45% with 1 to 2+ mitral regurgitation. Harry Wilson 12/27/2016 PROCEDURE NOTE--CARDIAC CATHETERIZATION LABORATORY: DATE OF PROCEDURE: Tuesday, December 27, 2016. EMPLOYMENT AGENCY MANAGER: Rl Torres MD PROCEDURES: 1. Percutaneous coronary intervention (PCI)-Xience resolute drug-eluting stents (PEDRITO) of proximal and mid right coronary artery: a. Mid RCA-Xience 2.25 x 18 mm. b. Proximal RCA-resolute. c. Proximal RCA-resolut 2.5 x 18 mm. Kymberly Torres . Brief History A 66-year-old woman with reported history of COPD, history of smoking, and hypertension was evaluated by Dr. Avalos due to an abnormal EKG with failed pharmacologic stress test. Patient present to the [facility] today for cardiac catheterization evaluation. The catheterization there are noted high-grade stenoses in the LAD and RCA. Please Dr. Avalos's note for specifics. After discovery of the lesions Dr. Torres was consulted and after discussion with Dr. Torres agreed to do intervention on the LAD. After initiation of the intervention with anticipated stent placement, the patient became obtunded and hypotensive with a PCO2 of 150. The angioplasty was aborted at that time and the patient intubated. Patient was also placed on dopamine, 2 IV lines were established, [place], and IV propofol was started. Patient was admitted to the ICU a pulmonary was consulted for vent management. ABG obtained in the [employer] Servicer is unavailable at the time of this dictation. First first ABG on the floor revealed a pH of 7.499, PCO2 of 39.4, PO2 of 249, bicarbonate of 30.4, with a saturation of 99.7% White count was 10.1, hemoglobin 14.2, hematocrit 40.3, platelets 194 Patient was mildly hyper natriuretic can hyper anemic at 147 and 5.3 respectively. Bicarbonate was initially 37 with repeat being 33. 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 Wilson. Patient was extremely anxious and was given some Ativan. She became quite somnolent and soon thereafter became easily arousable. Patient underwent coronary artery catheterization was found to have 2 lesions in tandem in her right coronary artery and an approximately 90% proximal LAD lesion. A blood gas revealed a CO2 that was over 150. Patient was promptly intubated and placed on the ventilator. The percutaneous intervention for the LAD lesion in the tandem RCA lesions was aborted. PCI was subsequently completed on 12/27 and 12/28. Extubated on 12/30, after delayed due to inadequate cuff leak.. # Acute on chronic respiratory failure with hypoxia. Continues to require 4 L O2. Continues to demonstrate labored breathing. Probably severe COPD. clinical picture does not suggest active pulmonary edema, but weight is increased 4 kg from admission. Limited response to Lasix. - Inhaled bronchodilators and inhaled glucocorticoid; no systemic glucocorticoid - Oxygen support as needed--> inc to BiPAP per pulm - Start prednisone 40mg 01/03 - Continue Lasix - A Trilogy device has been ordered and will be required at the time of discharge - ABG, spirometry and home O2 assessment ordered - Plan to discharge home with home health and physical therapy when Trilogy device is available, posisbly in 1-2 d pending clinical improvement # Ischemic cardiomyopathy with acute on chronic systolic congestive heart failure.She has a proximal LAD lesion of 90% and 2 in tandem RCA lesions. Patient's ejection fraction is 35-40%.Started on aspirin, carvedilol, prasugrel for PEDRITO placement. Initially unable to take by mouth meds. Not taking meds with blood pressure systolic ranged 99-116--> now elev - Carvedilol 12.5 mg twice a day - Losartan 100 mg daily; reduce to 50 mg in light of relative hypotension on , now with recurrent hypertension; resume losartan 100 mg daily - Spironolactone 25 mg daily - Prasugrel 10 mg daily - Titrate cardiac medications per Dr. Wilson # Oropharyngeal dysfunction, acute. Speech evaluation on 12/30 indicated poor pharyngeal function. This seems to be improving. - Continue to advance diet - Switched to all oral medications # Anxiety. Patient is very reactive with hypertension and tachycardia when sedation is removed. - Primary psychosocial intervention - Minimize benzodiazepine use # Hypertension, acute on chronic, poorly controlled. Very reactive to anxiety and stimulation. - Carvedilol initiated on 12/09, titrate upward - Patient takes losartan 100 mg daily and furosemide 40 mg daily as outpatient. Disposition: Likely discharge home 1-2 days Exam Vital Signs (Last) Date Time Temp Pulse Resp B/P Pulse Ox O2 Delivery O2 Flow Rate FiO2 01/04/17 16:12 84 20 95 Nasal Cannula 4.00 01/04/17 12:16 36.7 167/94 12/30/16 12:30 28 Exam Alert and oriented 3, no distress. Fluent speech Anicteric sclera Lungs with you for breath sounds, mild prolongation of expiratory phase. Heart is regular without murmur Abdomen is soft nontender Extremities free of edema. Skin is free of rash or lesions. Test 12/24/16 13:35 12/27/16 05:00 12/31/16 03:15 12/31/16 04:30 Lactic Acid Level 1.2mmol/L (0.4-2.0) Troponin T < 0.010ug/L (0.0-0.011) Hold Brand Top Tube Received (Received) Prothrombin Time 10.3sec (8.1-12.5) Prothromb Time International Ratio 0.96ratio Activated Partial Thromboplast Time 26.6sec (22.8-33.0) Total Bilirubin 0.4mg/dL (0.0-1.2) Aspartate Amino Transf (AST/SGOT) 25U/L (0-50) Alanine Aminotransferase (ALT/SGPT) 18U/L (0-32) Alkaline Phosphatase 54U/L (25-165) Total Protein 5.4g/dL (6.4-8.4) Albumin 3.1g/dL (3.4-5.0) Phosphorus Level 2.9mg/dL (2.5-4.9) Magnesium Level 2.1mg/dL (1.6-2.6) Urine Color Dark yellow (YELLOW) Urine Appearance Hazy (CLEAR,HAZY) Urine pH 5.5 (5.0-8.0) Urine Specific [place] 1.030 (1.003-1.035) Urine Protein Negativemg/dL (NEG,TRACE) Urine Glucose (UA) Negativemg/dL (NEGATIVE) Urine Ketones Tracemg/dL (NEGATIVE) Urine Occult Blood Large (NEGATIVE) Urine Nitrite Negative (NEGATIVE) Urine Bilirubin Negative (NEGATIVE) Urine Urobilinogen Normalmg/dL (NORMAL) Urine Leukocyte Esterase Negative (NEGATIVE) Urine RBC >50/hpf (0-2) Urine WBC 0-5/hpf (0-5) Urine Epithelial Cells Few/hpf (NONE-MOD) Urine Crystals None seen (NONE SEEN) Urine Bacteria Few/hpf (NONE-FEW) Urine Hyaline Casts B/lpf (NONE) Urine Granular Casts B (NONE SEEN) Urine Waxy Casts B (NONE SEEN) Urine Red Blood Cell Casts B (NONE SEEN) Urine White Blood Cell Casts None seen (NONE SEEN) Urine Mucus Present (None Seen) Urine Trichomonas None seen (NONE SEEN) Urine Yeast None (NONE SEEN) Urinalysis Comment None Urine Culture Reflexed Not indicated Test 01/01/17 04:00 01/03/17 03:43 01/03/17 10:10 Pro-B-Type Natriuretic Peptide 3630pg/mL (0-287) White Blood Count 7.2th/mm3 (3.8-10.1) Red Blood Count 4.59mil/mm3 (3.90-5.20) Hemoglobin 12.9g/dL (12.0-15.6) Hematocrit 43.9% (35.0-46.0) Mean Corpuscular Volume 95.6fL (81-100) Mean Corpuscular Hemoglobin 28.1pg (27.0-35.0) Mean Corpuscular Hemoglobin Concent 29.4% (32.0-37.0) Red Cell Distribution Width 14.3% (12.3-15.4) Platelet Count 179bil/L (150-400) Neutrophils (%) (Auto) 66.5% (40-74) Lymphocytes (%) (Auto) 11.5% (14-46) Monocytes (%) (Auto) 19.0% (4-12) Eosinophils (%) (Auto) 2.6% (0-5) Basophils (%) (Auto) 0.1% (0-3) Sodium Level 147mEq/L (134-144) Chloride Level 99mEq/L (97-108) Carbon Dioxide Level 42mmol/L (18-29) Blood Urea Nitrogen 9mg/dL (8-27) Creatinine 0.29mg/dL (0.57-1.00) Estimat Glomerular Filtration Rate 334mL/min (>59) Glucose Level 116mg/dL (60-99) Calcium Level 8.9mg/dL (8.5-10.1) Potassium Level 3.5mEq/L (3.5-5.2) Microbiology Results Negative nares swab for MRSA Discharge Medications Discharge Medications Aspirin Chew (Aspirin Chew) 81 Mg Chew 81 MG PO DAILY Prescribed by: THAD FAGAN MD Budesonide/Formoterol 160-4.5 mcg Inh (Symbicort 160-4.5 mcg Inh) 120 Puff Inhaler 2 PUFF INHALATION BID (Reported) Carvedilol (Carvedilol) 12.5 Mg Tablet 25 MG PO BID Prescribed by: THAD FAGAN MD Cyclosporine (Restasis) 1 Each Droperette 1 EACH AFFECT_EYE BID (Reported) Furosemide (Furosemide) 40 Mg Tablet 40 MG PO DAILY (Reported) Furosemide (Furosemide) 40 Mg Tablet 40 MG PO DAILY Prescribed by: THAD FAGAN MD Losartan Potassium (Cozaar) 100 Mg Tablet 100 MG PO DAILY Prescribed by: THAD FAGAN MD Potassium Chloride ER (Potassium Chloride ER) 10 Meq Tablet 10 MEQ PO DAILY ( Reported) TAKE WITH FOOD Prasugrel HCl (Effient) 10 Mg Tablet 10 MG PO DAILY Prescribed by: THAD FAGAN MD Spironolactone (Aldactone) 25 Mg Tablet 25 MG PO DAILY Prescribed by: THAD FAGAN MD Valacyclovir HCl (Valtrex) 500 Mg Tablet 500 MG PO TID Prescribed by: THAD FAGAN MD Venlafaxine (Venlafaxine) 75 Mg Tablet 75 MG PO HS (Reported) As needed Albuterol HFA (Proair HFA) 8.5 Gm Hfa.aer.ad 2 PUFFS INHALATION Q4H PRN PRN For Shortness of Breath (Reported) Epinephrine (Epinephrine) 0.3 Mg/0.3 Ml Auto.injct 0.3 MG IJ ONCE PRN PRN For Anaphyllaxis (Reported) Ipratropium/Albuterol Sulfate (Iprat-Albut 0.5-3(2.5) mg/3 mL Inhalant Soln) 3 Ml Ampul.neb 3 ML IH Q6 PRN PRN For Shortness of Breath (Reported) Nitroglycerin SL (Nitrostat) 0.4 Mg Tab.subl 0.4 MG SL Q5MIN PRN PRN For Chest Pain IF SBP > 90 one every 5 min for chest pain. Call 911 if not gone after 3rd. Prescribed by: THAD FAGAN MD Followup Plan Disposition: Home, with home health and Discharge Diet: Low fat, Low Sodium Discharge Activity: Limited until seen by PCP Patient Instructions You will use oxygen 2 liters during the day and your trilogy machine at night until follow up. Follow-up Provider: Rocky Li DO Follow-up with PCP in: 1 week Time spent 60 minutes Thad Fagan MD Jan 05, 2017 17:21
== END 2017-01-04 17:15 | disposition home health service (06) | DRG 981 ==
LOC: EDBD → SOUO 00:11 → CCU 16:00 → PCC 12-31 08:30
PROVIDERS: ADMIT Internal Medicine Infectious Disease; ATTEND Internal Medicine Infectious Disease
PROC: 03HY32Z Insertion of Monitoring Device into Upper Artery, Percutaneous Approach (ICD-10-PCS; principal; 2016-12-24)
PROC: 4A023N7 Measurement of Cardiac Sampling and Pressure, Left Heart, Percutaneous Approach (ICD-10-PCS; 2016-12-24)
PROC: B2111ZZ Fluoroscopy of Multiple Coronary Arteries using Low Osmolar Contrast (ICD-10-PCS; 2016-12-24)
PROC: 4A033R1 Measurement of Arterial Saturation, Peripheral, Percutaneous Approach (ICD-10-PCS; 2016-12-24)
PROC: 5A1955Z Respiratory Ventilation, Greater than 96 Consecutive Hours (ICD-10-PCS; 2016-12-24)
PROC: 027035Z Dilation of Coronary Artery, One Artery with Two Drug-eluting Intraluminal Devices, Percutaneous Approach (ICD-10-PCS; 2016-12-27)
PROC: 0270346 Dilation of Coronary Artery, One Artery, Bifurcation, with Drug-eluting Intraluminal Device, Percutaneous Approach (ICD-10-PCS; 2016-12-28)
DX: J96.22 Acute and chronic respiratory failure with hypercapnia (principal); I50.23 Acute on chronic systolic (congestive) heart failure; J44.1 Chronic obstructive pulmonary disease with (acute) exacerbation; I10 Essential (primary) hypertension; I25.10 Atherosclerotic heart disease of native coronary artery without angina pectoris; I25.5 Ischemic cardiomyopathy; Z87.891 Personal history of nicotine dependence; F41.9 Anxiety disorder, unspecified; F32.9 Major depressive disorder, single episode, unspecified

== ENCOUNTER 2017-01-06 14:21 | Inpatient (IN) | payer OTHER ==
[~2017-01-06] VITALS: Ht 167.6 cm; Wt 59.1 kg
[~2017-01-06 14:21] MED LIST changes: +ASPI81TA3 PO; -AZIT250T4 PO; +CARV12.52 PO; +LOSA100T3 PO; -LOSA50TA37 PO; +NITR0.4T SL; +PRAS10TA5 PO; +SPIR25TA PO; +VALA500T2 PO; +VENL75TA3 PO
[2017-01-06 14:39] VITALS: BP 152/70; PULSE 85; RESP 21; O2SAT 98
--- NOTE | 2017-01-06 14:58 | ED.REPORT ---
HPI-Dyspnea / Wheezing Date of Service Jan 06, 2017 ED Provider: Steve Priest MD This is a 66 year old female who was discharged from the hospital yesterday after a 13-day admission due to acute respiratory failure, COPD exacerbation, CAD, HTN, and ischemic cardiomyopathy presenting to the emergency department via EMS due to increasing weakness. Pt has been more somnolent but arousable, last normal yesterday night. Denies chest pain, nausea, or vomiting. Family members express frustration with her care during admission and express interest in being transferred to a different facility for further evaluation at this time. Nursing Notes Stated Complaint: ALTERED MENTAL STATUS Chief Complaint: Respiratory Distress Nursing Notes Reviewed: Yes Allergies: Coded Allergies: lisinopril (Unverified Allergy, Unknown, 12/24/16) dexamethasone (Unverified Adverse Reaction, Unknown, 12/24/16) Scheduled Aspirin Chew (Aspirin Chew) 81 Mg Chew 81 MG PO DAILY Budesonide/Formoterol 160-4.5 mcg Inh (Symbicort 160-4.5 mcg Inh) 120 Puff Inhaler 2 PUFF INHALATION BID Carvedilol (Carvedilol) 12.5 Mg Tablet 25 MG PO BID Cyclosporine (Restasis) 1 Each Droperette 1 EACH AFFECT_EYE BID Furosemide (Furosemide) 40 Mg Tablet 40 MG PO DAILY Furosemide (Furosemide) 40 Mg Tablet 40 MG PO DAILY Losartan Potassium (Cozaar) 100 Mg Tablet 100 MG PO DAILY Potassium Chloride ER (Potassium Chloride ER) 10 Meq Tablet 10 MEQ PO DAILY TAKE WITH FOOD Prasugrel HCl (Effient) 10 Mg Tablet 10 MG PO DAILY Spironolactone (Aldactone) 25 Mg Tablet 25 MG PO DAILY Valacyclovir HCl (Valtrex) 500 Mg Tablet 500 MG PO TID Venlafaxine (Venlafaxine) 75 Mg Tablet 75 MG PO HS Scheduled PRN Albuterol HFA (Proair HFA) 8.5 Gm Hfa.aer.ad 2 PUFFS INHALATION Q4H PRN PRN For Shortness of Breath Epinephrine (Epinephrine) 0.3 Mg/0.3 Ml Auto.injct 0.3 MG IJ ONCE PRN PRN For Anaphyllaxis Ipratropium/Albuterol Sulfate (Iprat-Albut 0.5-3(2.5) mg/3 mL Inhalant Soln) 3 Ml Ampul.neb 3 ML IH Q6 PRN PRN For Shortness of Breath Nitroglycerin SL (Nitrostat) 0.4 Mg Tab.subl 0.4 MG SL Q5MIN PRN PRN For Chest Pain IF SBP > 90 one every 5 min for chest pain. Call 911 if not gone after 3rd. General Time Seen by MD: 14:51 Chief Complaint Other Hx Obtained From: Patient Arrived By: Walk-in Sudden in Onset?: Yes Onset Occurred: 9 - 12 hours ago Symptom Duration: Since onset Severity: Current: No pain currently Pertinent Negative: Pt denies other symptoms Recent Healthcare: No recent doctor visit, Recent hospitalization Similar Sx Previous: No Past Medical History Past Medical History COPD CAD HTN Ischemic cardiomyopathy Past Surgical History Cardiac stenting Smoking History Former Smoker Ambulatory Status Independent Review of Systems Constitutional: Reports: Malaise, Weakness - generalized, Denies: Chills, Fever Respiratory: Denies: Non-productive cough, Shortness of breath Cardiovascular: Denies: Chest pain Musculoskeletal: Denies: Back pain Complete sys rev & neg: except as marked. Physical Exam Initial Vital Signs Vital Signs (First) Date Time Temp Pulse Resp B/P Pulse Ox O2 Delivery O2 Flow Rate FiO2 01/06/17 14:39 36.8 85 21 152/70 98 Room Air Initial VS: Reviewed Head / Eyes: Atraumatic, Normocephalic, PERRL ENT: Mucous membranes moist, Conjunctiva normal, No scleral icterus Abdomen / GI: Soft, Non-tender, No guarding, No rebound, No distention Extremities: Vascular intact, Neuro intact, No swelling, No tenderness Skin: Warm, Dry, No cyanosis Alertness: Positive: Somnolent Stooped over, arousable Neck: Atraumatic, Supple, No meningismus, Full range of motion, No swelling, Non-tender, No masses Respiratory / Chest: Breath sounds NL, Breath sounds = bilat, No respiratory distress, No rales, No rhonchi, No wheezing, No retractions, No stridor Cardiovascular: Heart rate NL, Regular rhythm, Heart sounds NL, Peripheral circulation NL Neurologic: No motor deficits, No sensory deficits, CN II - XII intact Interpretation & Diagnostics Interpretation & Diagnostics: ABG pH 7.185 pCO2 128 pO2 167.00 cHCO3 46.5 cBase 12.3 Lab Results Interpretation Result Diagram: 01/06/17 1504 01/06/17 1504 Test 01/06/17 15:04 01/06/17 15:46 White Blood Count 8.0th/mm3 (3.8-10.1) Red Blood Count 5.02mil/mm3 (3.90-5.20) Hemoglobin 14.2g/dL (12.0-15.6) Hematocrit 48.5% (35.0-46.0) Mean Corpuscular Volume 96.6fL (81-100) Mean Corpuscular Hemoglobin 28.3pg (27.0-35.0) Mean Corpuscular Hemoglobin Concent 29.3% (32.0-37.0) Red Cell Distribution Width 14.6% (12.3-15.4) Platelet Count 218bil/L (150-400) Neutrophils (%) (Auto) 78.5% (40-74) Lymphocytes (%) (Auto) 10.9% (14-46) Monocytes (%) (Auto) 9.8% (4-12) Eosinophils (%) (Auto) 0.6% (0-5) Basophils (%) (Auto) 0.1% (0-3) Hold Purple Top Tube Received (Received) Hold Blue Top Tube Received (Received) Sodium Level 144mEq/L (134-144) Potassium Level 3.4mEq/L (3.5-5.2) Chloride Level 96mEq/L (97-108) Carbon Dioxide Level 44mmol/L (18-29) Blood Urea Nitrogen 25mg/dL (8-27) Creatinine 0.30mg/dL (0.57-1.00) Estimat Glomerular Filtration Rate 321mL/min (>59) Glucose Level 129mg/dL (60-99) Calcium Level 10.2mg/dL (8.5-10.1) Total Bilirubin 0.6mg/dL (0.0-1.2) Aspartate Amino Transf (AST/SGOT) 26U/L (0-50) Alanine Aminotransferase (ALT/SGPT) 35U/L (0-32) Alkaline Phosphatase 74U/L (25-165) Troponin T < 0.010ug/L (0.0-0.011) Total Protein 7.1g/dL (6.4-8.4) Albumin 4.1g/dL (3.4-5.0) Hold Red Top Tube Received (Received) Hold Hamel Top Tube Received (Received) Lactic Acid Level 0.4mmol/L (0.4-2.0) ECG Interpretation ECG Interpretation: NSR at a rate of 93 Possible depressions in V5 and V6 Time: 15:59 Interpreted by: ED physician X-Ray Chest Interpretation Chest Xray Interpretation: IMPRESSION: No acute process. Dictated by: Ector Helms M.D. on 01/06/2017 at 15:56 Approved by: Ector Helms M.D. on 01/06/2017 at 15:56 Re-Eval/Medical Decision Med Decision/Clinical Course 66-year-old female discharged from the hospital yesterday after 13 day stay for 2 stents placed, intubation, COPD hypercapnic respiratory failure presenting with altered mental status since this morning. Per family patient has been confused since this morning. On arrival patient was completely obtunded. Blood gas showed pH 7.18, PCO2 128, PO2 167, bicarbonate 46. Patient was at risk for being intubated. Family did not want her intubated. She was placed on BiPAP and almost immediately perked up. Within an hour she was close to her baseline. Repeat VBG pH 7.37, PCO2 78. She had been discharged home on oxygen. On BiPAP at night at home. Labs were otherwise stable. Vital signs stable. Her oxygen fluctuated between 87 and 90% off oxygen. Altered mental status likely secondary to her hypercapnic respiratory failure due to oxygen at home. Unable to perform CT brain as patient did not tolerate being supine. Patient will be admitted for hypercapnic respiratory failure and altered mental status. Admitted to [facility] for BiPAP. Re-Evaluation/Progress #1: Time of Eval: 15:00 Re-Evaluation/Progress Note: Discussed patient care with family members, would like to be treated at this time. Re-Evaluation/Progress #2: Time of Eval: 16:00 Re-Evaluation/Progress Note: Discussed ABG results. Re-Evaluation/Progress #3: Time of Eval: 16:21 )( Re-Eval Resp / Chest: Breath sounds normal Patient Status: Condition improved Re-Evaluation/Progress #4: Time of Eval: 17:31 Re-Evaluation/Progress Note: Discussed need for admission, pt and family members present in the room understand and agree with plan, all questions addressed. Consultation : Referral / Consult Name: Addison Martinez MD Consulted With: Hospitalist Call Returned at: 17:53 Fare Register Repairer: Accepts admit Counseled Regarding: Diagnosis, Lab results, Need for follow-up, Need for admission Discharge & Departure Impression: Primary Impression: Respiratory failure Chronicity: acute Respiratory failure complication: hypercapnia Qualified Code: J96.02 - Acute respiratory failure with hypercapnia Additional Impression: Altered mental status Altered mental status type: unspecified Qualified Code: R41.82 - Altered mental status, unspecified Disposition: ADMITTED TO HOSPITAL Discharge Condition All VS Reviewed: Yes Condition: Stable Referrals: Rocky Li DO (PCP) Crit Care Except Billable Proc Time Spent: 75-104 minutes Services Performed: Patient management by me, Time spent at bedside, Reviewing test results, Reviewing imaging, Discussing patient care, Documentation in record, Time with fam/surrogate Scribe Attestation Portions of this note were transcribed by Samuel Castillo. I, Dr. Priest personally performed the history, physical exam and medical decision-making; I reviewed and confirmed the accuracy of the information in the transcribed note. Signed by: mitra Quinn. 01/06/2017, 15:00. Steve Priest MD Jan 06, 2017 14:58 SAMUEL CASTILLO Jan 06, 2017 15:16
--- NOTE | 2017-01-06 15:46 | ABG ---
DateTimeAnalyzed 15:41:00 -_ pH ____7.185 - 7.350 7.450 pCO2 128 -mmHg 35.0 45.0 pO2 167 -mmHg 69.0 116 HCO3- ___46.5__ -mmol/L 22.0 26.0 ABE ___12.3__ -mmol/L -2.0 2.0 tHb ___14.2__ -g/dL O2Hb ___96.9__ -% COHb ____1.1__ -% MetHb ____1.0__ -% sO2 ___99.0__ -% FIO2 ___28.0__ -% Drawn By jj - Date/Time Notified____ 15:45:00 -_ Oxygen Device 1 __CANNULA - Notified By jj - Notified Whom ___Dr. Ismael-Marks -___ B 762 -mmHg tO2 ___19.6__ -Vol% Thad test _Positive -
[2017-01-06 15:49] LABS: BASOPHILS % (AUTO) 0.1 % (0-3); EOSINOPHILS % (AUTO) 0.6 % (0-5); MONOCYTES % (AUTO) 9.8 % (4-12); Mean Corpuscular Hemoglobin 28.3 pg (27.0-35.0); Mean Corpuscular Volume 96.6 fL (81-100); NEUTROPHILS % (AUTO) 78.5 % (40-74); Platelet Count 218 bil/L (150-400)
--- NOTE | 2017-01-06 15:58 | DRSVH ---
PROCEDURE: X-RAY CHEST ONE VIEW, PORTABLE ([id number]) INDICATIONS: altered mental status TECHNIQUE: One view of the chest was acquired. COMPARISON: [facility], CR, XR CHEST 1VW (PORTABLE), 12/31/2016, 4:49. [facility], CR, XR CHEST 1VW (PORTABLE), 12/29/2016, 4:57. [facility], CR, XR CHEST 1VW (RACHEL BLE), 12/28/2016, 7:54. FINDINGS: Surgical changes and devices: None. Lungs and pleura: No pleural effusions or pneumothorax. Lungs are clear. Mediastinum: Mediastinal contours appear normal. Heart size is normal. Bones and chest wall: No suspicious bony lesions. Overlying soft tissues appear unremarkable. IMPRESSION: No acute process. Dictated by: Ector Helms M.D. on 01/06/2017 at 15:56 Approved by: Ector Helms M.D. on 01/06/2017 at 15:56
[2017-01-06 15:59] LABS: TROPONIN T < 0.010 ug/L (0.0-0.011)
[2017-01-06] MEDS ORDERED: Ondansetron 2 mg/mL 2 mL Inj IVPUSH PRN (17:55)
[2017-01-06] MEDS ORDERED: Polyethylene Glycol (PEG) 17 Gm Powder PO PRN (17:55)
[2017-01-06] MEDS ORDERED: Alum-Mag Hydrox-Simeth 30 mL Suspension PO PRN (17:55)
[2017-01-06] MEDS ORDERED: Albuterol HFA 60 Puff 8 Gm Inhaler INHALATION ONE (18:25)
[2017-01-06 18:58] VITALS: BP 179/91; PULSE 88; RESP 22; O2SAT 91
[2017-01-06 19:54] VITALS: BP 154/71; PULSE 88; RESP 20; O2SAT 91
[2017-01-06 20:11] VITALS: PULSE 86
[2017-01-06] MEDS ORDERED: Albuterol-Ipratropium 3 mL Inhalation Solution NEB PRN (22:35)
[2017-01-06] MEDS ORDERED: Albuterol 2.5 mg/3 mL Inhalation Solution NEB PRN (22:42)
[2017-01-06 22:56] VITALS: PULSE 81; O2SAT 92
[2017-01-06] MEDS: RESTASIS EYE DROPS BOTH_EYES SCH (23:10)
[2017-01-06 23:40] VITALS: PULSE 79
[2017-01-07] VITALS (7 sets, daily range): BP systolic 124–176; BP diastolic 65–79; PULSE 68–92; RESP 16–24; O2SAT 90–95
[2017-01-07] MEDS: Fluticasone-Salmeterol 500-50 Inhaler INHALATION SCH ×2 (00:30→08:27)
--- NOTE | 2017-01-07 02:06 | PCM.HPMED ---
Subjective Date of Service Jan 07, 2017 Primary Provider: Admitting Physician: Addison Martinez MD Primary Care Physician: Rocky Li DO Attending Physician: Addison Martinez MD History of Present Illness: 66 year old female who was discharged from the hospital after a 11-day admission due to acute respiratory failure, COPD exacerbation, CAD, HTN, and ischemic cardiomyopathy presenting to the emergency department via EMS due to increasing weakness. Pt has been more somnolent but arousable, last normal yesterday night. Denies chest pain, nausea, or vomiting. Family members express frustration with her care during admission and express interest in being transferred to a different facility for further evaluation at this time. So I spoke with the at length. It sounds like there was an unfortunate issue with not getting oxygen prescribed or written for at the time of discharge. It is not clear to me whether that was an oversight or deliberate. Because at this point in time patient is on room air O2 is 88% and this is probably where she is optimal rather than needing 4 L to get her O2 sat into the 90s. I explained this to him as well as the fact that she is quite frail. I cannot understand why she was fine with her Trilogy machine and 4 L of oxygen for days prior to discharge and then suddenly she should decompensate like this however that is what appears to have happened. Patient came in with hypercarbic respiratory failure pH of 7.18 and PCO2 of greater than 100 in the emergency room and immediately responded to BiPAP therapy I do not have the official repeat blood gas but they told me it was 7.39 with an PCO2 in the 70s. By the time I am seeing the patient she is awake and responsive Review of Systems: Gen.: No fevers chills weight gain or weight loss of at least 10+ pounds during the hospitalization Eyes: no visual disturbances or blurring vision HEENT: No nose/throat drainage, no pain in ears or throat, no hearing loss Lymph: No lymph nodes noted Cardiac: No chest pain, orthopnea, PND, palpitations , pedal edema or dyspnea on exertion nothing new Pulmonary: no cough, wheezing or bringing up of sputum report no new problems or symptoms, patient was able to ambulate up and down the hallway yesterday GI: No anorexia nausea vomiting blood or black in the stool reports that they enjoyed a meal or 2 together yesterday : no dysuria hematuria urinary frequency or decrease in urine output Musculoskeletal: Joint swelling no joint pain no new muscle aches or back pain Neuro: No syncope, seizures no loss of consciousness no new focal weakness, numbness or tingling altered level of consciousness as described above Psychiatric: New new anxiety insomnia or depression Endocrine: No new heat or cold intolerances polyuria or polydipsia Hematology: No lymphadenopathy or easy bleeding or bruising noted skin: No new rashes, stasis dermatitis Allergies Coded Allergies: lisinopril (Verified Allergy, Unknown, cough, 01/06/17) dexamethasone (Verified Adverse Reaction, Unknown, 01/06/17) Home Medications Scheduled Aspirin Chew (Aspirin Chew) 81 Mg Chew 81 MG PO DAILY Budesonide/Formoterol 160-4.5 mcg Inh (Symbicort 160-4.5 mcg Inh) 120 Puff Inhaler 2 PUFF INHALATION BID Carvedilol (Carvedilol) 12.5 Mg Tablet 25 MG PO BID Cyclosporine (Restasis) 1 Each Droperette 1 EACH AFFECT_EYE BID Furosemide (Furosemide) 40 Mg Tablet 40 MG PO DAILY Furosemide (Furosemide) 40 Mg Tablet 40 MG PO DAILY Losartan Potassium (Cozaar) 100 Mg Tablet 100 MG PO DAILY Potassium Chloride ER (Potassium Chloride ER) 10 Meq Tablet 10 MEQ PO DAILY TAKE WITH FOOD Prasugrel HCl (Effient) 10 Mg Tablet 10 MG PO DAILY Spironolactone (Aldactone) 25 Mg Tablet 25 MG PO DAILY Valacyclovir HCl (Valtrex) 500 Mg Tablet 500 MG PO TID Venlafaxine (Venlafaxine) 75 Mg Tablet 75 MG PO HS Scheduled PRN Albuterol HFA (Proair HFA) 8.5 Gm Hfa.aer.ad 2 PUFFS INHALATION Q4H PRN PRN For Shortness of Breath Epinephrine (Epinephrine) 0.3 Mg/0.3 Ml Auto.injct 0.3 MG IJ ONCE PRN PRN For Anaphyllaxis Ipratropium/Albuterol Sulfate (Iprat-Albut 0.5-3(2.5) mg/3 mL Inhalant Soln) 3 Ml Ampul.neb 3 ML IH Q6 PRN PRN For Shortness of Breath Nitroglycerin SL (Nitrostat) 0.4 Mg Tab.subl 0.4 MG SL Q5MIN PRN PRN For Chest Pain IF SBP > 90 one every 5 min for chest pain. Call 911 if not gone after 3rd. PMH Prior to hospitalization in December patient did not need oxygen and was managing there was no diagnosis of CAD/ischemic cardiomyopathy COPD CAD HTN Ischemic cardiomyopathy Past Surgical History Cardiac stenting Smoking History Former Smoker Ambulatory Status Independent Social History Hx Alcohol Use: Yes (occational) Hx Substance Use: No Hx Tobacco Use: Yes Smoking Status: Former Smoker Exam Vital Signs Vital Sign - Last Date Time Temp Pulse Resp B/P Pulse Ox O2 Delivery O2 Flow Rate FiO2 01/07/17 01:30 78 24 93 Room Air 01/07/17 00:26 37.1 168/79 01/06/17 22:56 21 Exam Gen.- no apparent distress. Ill appearing female sitting up in bed intermittently sleeping while I spoke to her opens her eyes and does follow simple commands and speaks a few words to answer questions Eyes- open conjunctiva clear, pupils equal nonicteric Mouth- oral mucosa moist, no exudate ENT- ears normal, nose normal Neck- supple/trach midline CVS- RRR no murmur or gallop Lungs- CTA, all breath sounds are via Trilogy NIPPV patient does not really seem to move air GI- NABS/NT soft, generous pannus Musc- moving 4 no obvious deformity Neuro- cranial nerves II through XII intact to gross examination, nonfocal Skin- warm and dry, no rashes/lesions/wounds noted Psych-drowsy and not really interactive Lab and Diagnostics Labs LFTs WNL, troponin less than 0.010, ABG pH 7.185/PCO2 128/PO2 167 Result Diagram: 01/06/17 1504 01/06/17 1504 X-Rays, CTs and MRIs CXR shows no acute disease 12-lead ECG EKG sinus with a rate of 93, LVH similar to 12/28/16 and reviewed by myself Assessment & Plan 66-year-old female extremely medically complex after series of events prompted a major decline in her global condition as far as I can tell beginning 12/24/16. Her is understandably distraught over her precipitous decline, he feels that some of the events could have been mitigated had her catheterization taken place 12/25 as opposed to 12/27. Additionally he is upset that he was sent home without oxygen. And now he is upset that has had a setback. It appears that at least at this time she does not need the oxygen and this may have killed her respiratory drive prompting CO2 retention however this should not happen had she been using her Trilogy NIPPV which they report she was. Therefore it is not entirely clear what caused her decline, she did certainly have acute CO2 retention and responded immediately to BiPAP in the emergency room, and now is doing fine on her and IPPV from home without any additional oxygen bleed in. This is down from 4 L at the time of discharge, perhaps it was delivered that 4 L O2 was not prescribed at the time of discharge this is not clear. Acute hypercarbic respiratory failure-secondary to COPD/CHF responded to an IPPV in the emergency room Chronic respiratory failure-secondary to COPD and CHF Hypokalemia-replaced/monitor COPD-resume home medications and treatments Ischemic cardiomyopathy/systolic CHF/CAD-resume home medications and treatments Prophylaxis- patient at her baseline and returning home so I would say no DVT prophylaxis is indicated, no GI prophylaxis Disposition- full code from home This actual admission was not particularly medically complex but reviewing patient's history and speaking with took great deal of time over 60 minutes. I believe this patient will likely be discharging in the morning barring any further setbacks. Time spent 60 Addison Martinez MD Jan 07, 2017 02:06
--- NOTE | 2017-01-07 03:35 | ABG ---
DateTimeAnalyzed 03:30:00 -_ pH ____7.389 - 7.350 7.450 pCO2 ___73.8__ -mmHg 35.0 45.0 pO2 ___54.2__ -mmHg 69.0 116 HCO3- ___43.6__ -mmol/L 22.0 26.0 ABE ___15.0__ -mmol/L -2.0 2.0 tHb ___13.6__ -g/dL O2Hb ___87.4__ -% COHb ____1.7__ -% MetHb ____0.8__ -% sO2 ___89.6__ -% FIO2 ___21.0__ -% Drawn By MD - Date/Time Notified____ 03:35:00 -_ Liter_Flow ____2.0__ -L/min Oxygen Device 1 __TRILOGY - Notified By MD - Notified Whom RN K.BUNKER - B 757 -mmHg tO2 ___16.7__ -Vol% Thad test _Positive -
[2017-01-07 03:49] LABS: BASOPHILS % (AUTO) 0.1 % (0-3); EOSINOPHILS % (AUTO) 0.5 % (0-5); MONOCYTES % (AUTO) 8.2 % (4-12); Mean Corpuscular Hemoglobin 28.4 pg (27.0-35.0); Mean Corpuscular Volume 95.8 fL (81-100); NEUTROPHILS % (AUTO) 83.7 % (40-74); Platelet Count 209 bil/L (150-400)
[2017-01-07 04:21] LABS: Magnesium 2.1 mg/dL (1.6-2.6)
--- NOTE | 2017-01-07 05:00 | NUR ---
Admit to floor from ED @ 1945 Alert / RA sat 92% Weakness/fatigue. SOB with minimal exertion. Able to swallow pills if crushed and in applesauce. Bipap applied for night with 1 Lt 02 bled into line initially. Later in the morning 0500 sats decreased to 78% with bipap on. RT notified and adjusted 02 rate to 5 Lt's - sats now 86% ABG's drawn as ordered and on chart.
[2017-01-07] MEDS: RESTASIS EYE DROPS BOTH_EYES SCH (08:30)
--- NOTE | 2017-01-07 10:56 | NUR ---
Social Work: Initial Assessment D: Per EMR review, pt is a 66 year old female admitted for hypercapnic, respiratory failure, AMS. Pt insurance is [employer] with no supplement; no LTC insurance or VA benefits. PCP is Rocky Li MD. NOK Is pt's spouse, Jose Maria Cruz. Advanced directives not completed- information provided by [employer]. Readmit score not entered at this time. Pt is a readmit and was sent home on 01/04 with [facility] for RN and PT along with a trilogy machine through [employer]. Per EMR review, there was some issues with the pt's home 02 post discharge. [employer] met with pt and spouse at bedside to complete assessment and discuss the challenges after the pt's last discharge. Pt's spouse states that the pt was sent home from the hospital with an 02 tank supplied by [facility]. [employer] was out to setup the pt's Trilogy machine and was awaiting the pt's oxygen delivery which never arrived. Upon further exploration, it was determined that the DME supplier had not received the referral from [facility]. The [employer] rep was able to secure home 02 delivery for the pt that evening. [employer] spoke with pt's 02 supplier [employer] who states they have everything they need to continue supplying pt's home 02. Pt and spouse state that [facility] has not yet opened for services and that they have not received a phone call to setup a time for intake. HH Choice Provided to pt and spouse- at this time, [facility] is the only [employer] contracted agency who services Sophie Estrada. They are agreeable to remain with this company. t/c to [facility] Intake line ([phone]) to notify that pt is admitted and to provide pt's spouse contact information for future contact. A: Pt who lives at home with her spouse and has been using a rented FWW. P: Anticipate pt to discharge home with resumed [facility], home 02 supplied through [employer] and trilogy through [employer]. [employer] to continue to follow and assist with safe discharge planning. SONIA Noel Addendum: 01/07/17 at 1115 by NEELAM MUHAMMAD SS Amended: Links added.
--- NOTE | 2017-01-07 11:52 | PCM.DIMED ---
Discharge Instructions Date of Service Jan 07, 2017 Dates of Hospitalization Jan 06, 2017 at 18:32 Discharge Diagnosis Discharge Diagnosis 1. Acute hypercarbic respiratory failure-secondary to COPD and O2 at 4 LNC 2. Chronic respiratory failure 3. COPD 4. Chronic systolic heart failure 5. Ischemic cardiomyopathy 6. Hypokalemia, resolved. Diet Low fat, Low Sodium Activity Limited until seen by PCP Patient Instructions Oxygen at 2 L NC, Trilogy at night and will daytime naps Follow-up Provider: Rocky Li DO Follow-up with PCP in: 1 week Thad Velez MD Jan 07, 2017 11:52
--- NOTE | 2017-01-07 13:51 | NUR ---
Pt. O2 assessment done. Pt. resting, sitting edge of bed, RA sats 91-92%. Pt. standing at edge of bed with 1-2 steps with walker, O2 sats decreased to 86-87%. Pt. placed on 1 lpm NC. Encouraged pt. to do purse lip breathing. Pt. O2 sats increased to 90%. Pt. takes time to recover, but improves with O2 at 1-2 lpm and pursed lip breathing technique.
--- NOTE | 2017-01-07 14:38 | NUR ---
Discharge Pt discharged to home, with transport by in POV. Pt IV dc'd intact, telemetry removed and tech notified. Pt's belongings were gathered for transport home with pt. Pt's discharge instructions were reviewed with pt and her spouse who is her caregiver.All questions were answered. Pt's spouse verbalized understanding. Pt was escorted off unit to her vehicle.
--- NOTE | 2017-01-07 17:00 | PCM.DC.MED ---
Discharge Summary Date of Service Jan 07, 2017 Dates of Hospitalization Date of Hospital Admission Jan 06, 2017 at 18:32 Date of Discharge: Jan 07, 2017 Providers: Admitting Physician: Addison Martinez MD Primary Care Physician: Rocky Li DO Attending Physician: Addison Martinez MD Diagnosis at Time of Discharge Diagnosis at Time of Discharge 1. Acute hypercarbic respiratory failure-secondary to COPD and O2 at 4 LNC 2. Chronic respiratory failure 3. COPD 4. Chronic systolic heart failure 5. Ischemic cardiomyopathy 6. Hypokalemia, resolved. Consultations None Procedures XRay, CTs & MRIs CXR shows no acute disease ECG 12 Lead EKG sinus with a rate of 93, LVH similar to 12/28/16 and reviewed by myself Brief History 66 year old female who was discharged from the hospital after a 11-day admission due to acute respiratory failure, COPD exacerbation, CAD, HTN, and ischemic cardiomyopathy presenting to the emergency department via EMS due to increasing weakness. Pt has been more somnolent but arousable, last normal yesterday night. Denies chest pain, nausea, or vomiting. Family members express frustration with her care during admission and express interest in being transferred to a different facility for further evaluation at this time. So I spoke with the at length. It sounds like there was an unfortunate issue with not getting oxygen prescribed or written for at the time of discharge. It is not clear to me whether that was an oversight or deliberate. Because at this point in time patient is on room air O2 is 88% and this is probably where she is optimal rather than needing 4 L to get her O2 sat into the 90s. I explained this to him as well as the fact that she is quite frail. I cannot understand why she was fine with her Trilogy machine and 4 L of oxygen for days prior to discharge and then suddenly she should decompensate like this however that is what appears to have happened. Patient came in with hypercarbic respiratory failure pH of 7.18 and PCO2 of greater than 100 in the emergency room and immediately responded to BiPAP therapy I do not have the official repeat blood gas but they told me it was 7.39 with an PCO2 in the 70s. By the time I am seeing the patient she is awake and responsive Hospital Course 66-year-old female extremely medically complex after series of events prompted a major decline in her global condition as far as I can tell beginning 12/24/16. Her is understandably distraught over her precipitous decline, he feels that some of the events could have been mitigated had her catheterization taken place 12/25 as opposed to 12/27. Additionally he is upset that he was sent home without oxygen. And now he is upset that has had a setback. It appears that at least at this time she does not need the oxygen and this may have killed her respiratory drive prompting CO2 retention however this should not happen had she been using her Trilogy NIPPV which they report she was. Therefore it is not entirely clear what caused her decline, she did certainly have acute CO2 retention and responded immediately to BiPAP in the emergency room, and now is doing fine on her and IPPV from home without any additional oxygen bleed in. This is down from 4 L at the time of discharge, perhaps it was delivered that 4 L O2 was not prescribed at the time of discharge this is not clear. Acute hypercarbic respiratory failure-secondary to COPD/CHF responded to an IPPV in the emergency room Chronic respiratory failure-secondary to COPD and CHF Hypokalemia-replaced/monitor COPD-resume home medications and treatments Ischemic cardiomyopathy/systolic CHF/CAD-resume home medications and treatments Prophylaxis- patient at her baseline and returning home so I would say no DVT prophylaxis is indicated, no GI prophylaxis Disposition- full code from home This actual admission was not particularly medically complex but reviewing patient's history and speaking with took great deal of time over 60 minutes. I believe this patient will likely be discharging in the morning barring any further setbacks. Hospital course. This patient is a readmitted for progressive dyspnea. In talking with the patient and her it was noted that she had been using oxygen at 4 L for the past several days. She is becoming more somnolent. She was brought back to the hospital for this reason. There was some evidence of hypercarbia likely secondary to too much oxygen. The patient also had some difficulty obtaining oxygen when she has previously discharge. However in the evening of discharge she did attain oxygen from her ventilator with the assistance of the via med respiratory therapist. Today in the hospital is noted that her saturations are 88-90% on room air. It seems as though a good middle line would be 2 L of oxygen to avoid hypoxia and try to prevent hypercarbia. The rationale was explained to the patient and her and they agreed to a trial of 2 L of oxygen. Is also reinforced that this is an extremely difficult situation with her chronic hypercarbic and hypoxic respiratory failure in terms of trying to find the right balance with oxygen and how often these are Trilogy, which she is having some difficulty adjusting to. Exam Vital Signs (Last) Date Time Temp Pulse Resp B/P Pulse Ox O2 Delivery O2 Flow Rate FiO2 01/07/17 12:00 36.6 84 16 124/65 90 Nasal Cannula 2.00 01/06/17 22:56 21 Exam Patient was seen and examined on the day of discharge Test 01/06/17 15:04 01/06/17 15:46 01/07/17 03:30 Hold Purple Top Tube Received (Received) Hold Blue Top Tube Received (Received) Total Bilirubin 0.6mg/dL (0.0-1.2) Aspartate Amino Transf (AST/SGOT) 26U/L (0-50) Alanine Aminotransferase (ALT/SGPT) 35U/L (0-32) Alkaline Phosphatase 74U/L (25-165) Total Protein 7.1g/dL (6.4-8.4) Albumin 4.1g/dL (3.4-5.0) Hold Red Top Tube Received (Received) Hold Dale Top Tube Received (Received) Lactic Acid Level 0.4mmol/L (0.4-2.0) White Blood Count 11.0th/mm3 (3.8-10.1) Red Blood Count 4.75mil/mm3 (3.90-5.20) Hemoglobin 13.5g/dL (12.0-15.6) Hematocrit 45.5% (35.0-46.0) Mean Corpuscular Volume 95.8fL (81-100) Mean Corpuscular Hemoglobin 28.4pg (27.0-35.0) Mean Corpuscular Hemoglobin Concent 29.7% (32.0-37.0) Red Cell Distribution Width 14.4% (12.3-15.4) Platelet Count 209bil/L (150-400) Neutrophils (%) (Auto) 83.7% (40-74) Lymphocytes (%) (Auto) 7.3% (14-46) Monocytes (%) (Auto) 8.2% (4-12) Eosinophils (%) (Auto) 0.5% (0-5) Basophils (%) (Auto) 0.1% (0-3) Sodium Level 144mEq/L (134-144) Potassium Level 3.2mEq/L (3.5-5.2) Chloride Level 95mEq/L (97-108) Carbon Dioxide Level 39mmol/L (18-29) Blood Urea Nitrogen 24mg/dL (8-27) Creatinine < 0.30mg/dL (0.57-1.00) Estimat Glomerular Filtration Rate 321mL/min (>59) Glucose Level 131mg/dL (60-99) Calcium Level 10.1mg/dL (8.5-10.1) Magnesium Level 2.1mg/dL (1.6-2.6) Troponin T 0.010ug/L (0.0-0.011) Pro-B-Type Natriuretic Peptide 1435pg/mL (0-287) Discharge Medications Discharge Medications Aspirin Chew (Aspirin Chew) 81 Mg Chew 81 MG PO DAILY Prescribed by: DANY FAGAN MD Budesonide/Formoterol 160-4.5 mcg Inh (Symbicort 160-4.5 mcg Inh) 120 Puff Inhaler 2 PUFF INHALATION BID (Reported) Carvedilol (Carvedilol) 12.5 Mg Tablet 25 MG PO BID Prescribed by: DANY FAGAN MD Cyclosporine (Restasis) 1 Each Droperette 1 EACH AFFECT_EYE BID (Reported) Furosemide (Furosemide) 40 Mg Tablet 40 MG PO DAILY Prescribed by: DANY FAGAN MD Losartan Potassium (Cozaar) 100 Mg Tablet 100 MG PO DAILY Prescribed by: DANY FAGAN MD Potassium Chloride ER (Potassium Chloride ER) 10 Meq Tablet 10 MEQ PO DAILY ( Reported) TAKE WITH FOOD Prasugrel HCl (Effient) 10 Mg Tablet 10 MG PO DAILY Prescribed by: DANY FAGAN MD Spironolactone (Aldactone) 25 Mg Tablet 25 MG PO DAILY Prescribed by: DANY FAGAN MD Valacyclovir HCl (Valtrex) 500 Mg Tablet 500 MG PO TID Prescribed by: DANY FAGAN MD Venlafaxine (Venlafaxine) 75 Mg Tablet 75 MG PO HS (Reported) As needed Albuterol HFA (Proair HFA) 8.5 Gm Hfa.aer.ad 2 PUFFS INHALATION Q4H PRN PRN For Shortness of Breath (Reported) Epinephrine (Epinephrine) 0.3 Mg/0.3 Ml Auto.injct 0.3 MG IJ ONCE PRN PRN For Anaphyllaxis (Reported) Ipratropium/Albuterol Sulfate (Iprat-Albut 0.5-3(2.5) mg/3 mL Inhalant Soln) 3 Ml Ampul.neb 3 ML IH Q6 PRN PRN For Shortness of Breath (Reported) Nitroglycerin SL (Nitrostat) 0.4 Mg Tab.subl 0.4 MG SL Q5MIN PRN PRN For Chest Pain IF SBP > 90 one every 5 min for chest pain. Call 911 if not gone after 3rd. Prescribed by: DANY FAGAN MD Followup Plan Disposition: Home, with . Follow-up plan The [facility] respiratory therapist will interface with the patient and family today. We will use oxygen at 2 L nasal cannula next several days. I believe at 4 L was too much and resulted in CO2 retention. Discharge Diet: Low fat, Low Sodium Discharge Activity: Limited until seen by PCP Patient Instructions Oxygen at 2 L NC, Trilogy at night and will daytime naps Follow-up Provider: Rocky Li DO Follow-up with PCP in: 1 week Time spent 40 minutes Dany Fagan MD Jan 07, 2017 17:00
--- NOTE | 2017-01-10 11:23 | NUR ---
Social Work Note: Late Entry SW received phone call from [facility] explaining that she requires "Resume Home Health" orders from MD in order to continue services. Pt was discharged on 01/07/17 after SW had left for the day and these orders were not documented in pt discharge paperwork. MD that discharged pt completed Resume Home Health Orders today and these orders have been faxed to [facility] as requested. Leny explained that they will resume Home Health RN and PT tomorrow 01/11/2017. SONIA Levi
== END 2017-01-07 14:10 | disposition home health service (06) | DRG 189 ==
LOC: SED 14:21 → EDBD 14:21 → EDUNIT# 14:21 → PCC 18:32
PROVIDERS: ADMIT Hospitalist; ATTEND Hospitalist
PROC: 4A033R1 Measurement of Arterial Saturation, Peripheral, Percutaneous Approach (ICD-10-PCS; principal; 2017-01-06)
DX: J96.22 Acute and chronic respiratory failure with hypercapnia (principal); I50.22 Chronic systolic (congestive) heart failure; R41.82 Altered mental status, unspecified; J44.9 Chronic obstructive pulmonary disease, unspecified; I25.5 Ischemic cardiomyopathy; I10 Essential (primary) hypertension; I25.10 Atherosclerotic heart disease of native coronary artery without angina pectoris; Z87.891 Personal history of nicotine dependence; E87.6 Hypokalemia